=== PATIENT | female | born 1960 | race Two or more races ===

== ENCOUNTER 2017-01-31 09:57 | Emergency (ER) | payer MEDICARE, MEDICAID ==
[2017-01-31] MEDS ORDERED: ONDANSETRON 4 MG TAB.RAPDIS PO ONE (10:21)
--- NOTE | 2017-01-31 10:21 | ER Document Report ---
ED Medical Screen (RME) - General Chief Complaint: Vomiting Stated Complaint: VOMITING Mode of Arrival: Ambulatory Information source: Patient TRAVEL OUTSIDE OF THE [place] IN LAST 30 DAYS: No - HPI Onset: This morning - 2 AM Onset/Duration: Sudden Quality of pain: Other - HRONIC BACK PAIN, NOTHING UNUSUAL Severity: Moderate Associated Symptoms: Nausea, Vomiting. denies: Chest pain, Fever, Shortness of breath Exacerbated by: Food, Other - P.O. 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 No: Tachycardic, Tachypneic - General General appearance: Appears well - DOES APPEAR UNCOMFORTABLE In distress: None - Abdominal Distension: No distension Course - Vital Signs Vital signs: Temp Pulse Resp BP Pulse Ox 98.4 F 68 18 136/56 H 96 01/31/17 10:01 01/31/17 10:01 01/31/17 10:01 01/31/17 10:01 01/31/17 10:01
[2017-01-31] MEDS ORDERED: PROMETHAZINE HCL 25 MG TABLET PO ONE (10:51)
--- NOTE | 2017-01-31 11:24 | ER Document Report ---
ED General - General Chief Complaint: Vomiting Stated Complaint: VOMITING Mode of Arrival: Ambulatory TRAVEL OUTSIDE OF THE [place] IN LAST 30 DAYS: No - HPI Patient complains to provider of: nausea vomiting Notes: Patient is coming in for evaluation of nausea vomiting. Patient states she has a history of chronic back pain states she also has Phenergan that she normally takes whenever her symptoms of nausea vomiting occur however patient is from [place] and does not have any Phenergan with her. Denies fevers chills nausea vomiting diarrhea. Patient denies any recent antibiotics. - Related Data Allergies/Adverse Reactions: morphine Allergy (Verified 01/31/17 10:01) sumatriptan [From Imitrex] Allergy (Verified 01/31/17 10:01) sumatriptan succinate [From Imitrex] Allergy (Verified 01/31/17 10:01) Past Medical History - General Information source: Patient - Social History Smoking Status: Never Smoker Chew tobacco use (# tins/day): No Frequency of alcohol use: None Drug Abuse: None Family History: CAD, DM, Malignancy, Other - copd Patient has suicidal ideation: No Patient has homicidal ideation: No - Past Medical History Cardiac Medical History: 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 Neurological Medical History: Reports: Hx Migraine Renal/ Medical History: Denies: Hx Peritoneal Dialysis Past Surgical History: Reports: Hx Bowel Surgery - Lap lysis of adhesions, Hx Hysterectomy, Hx Orthopedic Surgery - back 2 - Immunizations Immunizations up to date: Yes Hx Diphtheria, Pertussis, Tetanus Vaccination: No Hx Pneumococcal Vaccination: 12/29/10 Review of Systems - Review of Systems Constitutional: No symptoms reported EENT: No symptoms reported Cardiovascular: No symptoms reported Respiratory: No symptoms reported Gastrointestinal: Nausea, Vomiting Genitourinary: No symptoms reported Female Genitourinary: No symptoms reported Musculoskeletal: No symptoms reported Skin: No symptoms reported Hematologic/Lymphatic: No symptoms reported Neurological/Psychological: No symptoms reported -: Yes All other systems reviewed and negative Physical Exam - Vital signs Vitals: Temp Pulse Resp BP Pulse Ox 98.4 F 68 18 136/56 H 96 01/31/17 10:01 01/31/17 10:01 01/31/17 10:01 01/31/17 10:01 01/31/17 10:01 Interpretation: Normal - General General appearance: Appears well, Alert - HEENT Head: Normocephalic, Atraumatic Eyes: Normal Pupils: PERRL - Respiratory Respiratory status: No respiratory distress Chest status: Nontender Breath sounds: Normal Chest palpation: Normal - Cardiovascular Rhythm: Regular Heart sounds: Normal auscultation Murmur: No - Abdominal Inspection: Normal Distension: No distension Bowel sounds: Normal Tenderness: Nontender Organomegaly: No organomegaly - Back Back: Normal, Nontender - Extremities General upper extremity: Normal inspection, Nontender, Normal color, Normal ROM , Normal temperature General lower extremity: Normal inspection, Nontender, Normal color, Normal ROM , Normal temperature, Normal weight bearing. No: Nate's sign - Neurological Neuro grossly intact: Yes Cognition: Normal Orientation: AAOx4 David Coma Scale Eye Opening: Spontaneous David Coma Scale Verbal: Oriented [place] Coma Scale Motor: Obeys Commands [place] Coma Scale Total: 15 Speech: Normal Motor strength normal: LUE, RUE, LLE, RLE Sensory: Normal - Psychological Associated symptoms: Normal affect, Normal mood - Skin Skin Temperature: Warm Skin Moisture: Dry Skin Color: Normal Course - Re-evaluation Re-evalutation: 01/31/17 14:48 Patient was able to tolerate by mouth. Patient was given a dose of Phenergan and a prescription for Phenergan for home. Patient was grateful for her care. - Vital Signs Vital signs: Temp Pulse Resp BP Pulse Ox 97.7 F 63 18 107/63 98 01/31/17 11:28 01/31/17 11:28 01/31/17 11:28 01/31/17 11:28 01/31/17 11:28 Discharge - Discharge Clinical Impression: Vomiting Qualifiers: Vomiting type: unspecified Vomiting Intractability: unspecified Nausea presence : unspecified Qualified Code(s): R11.10 - Vomiting, unspecified Condition: Good Disposition: HOME, SELF-CARE Instructions: Vomiting ([facility]) Additional Instructions: Take medication as prescribed. Please follow-up with your primary care physician Prescriptions: Ondansetron [Zofran Odt 4 mg Tablet] 4 mg PO Q4HP PRN #30 tab.rapdis PRN Reason: Promethazine HCl [Phenergan 25 mg Tablet] 1 - 2 tab PO Q6H PRN #30 tablet PRN Reason: Forms: Return to Work
[2017-01-31 11:29] VITALS: BP 107/63
== END 2017-01-31 11:30 | disposition home or self-care (01) ==
LOC: ER 09:57
DX: R11.2 Nausea with vomiting, unspecified (principal); G89.29 Other chronic pain
CPT/HCPCS: 99283; A9270 ×2; S0119

== ENCOUNTER 2017-05-11 09:21 | Emergency (ER) | payer MEDICARE, MEDICAID ==
[2017-05-11] MEDS ORDERED: OXYCODONE-ACETAMINOPHEN 5-325 MG TABLET PO ONE (09:35)
[2017-05-11] MEDS ORDERED: ONDANSETRON 4 MG TAB.RAPDIS PO ONE (09:35)
--- NOTE | 2017-05-11 10:01 | ER Document Report ---
HPI - HPI Patient complains to provider of: tooth pain Pain Level: 4 Context: 56 yo female fractured tooth #7 last pm. c/o of alot pain which is causing n/v/ d. no fever. pt is visiting area for in family. has contacted dentist at home as an appointment set Associated Symptoms: Diarrhea, Vomiting Exacerbated by: Food Relieved by: Denies Similar symptoms previously: No Recently seen / treated by doctor: No - ROS Systems Reviewed and Negative: Yes All other systems reviewed and negative - REPRODUCTIVE Reproductive: DENIES: : - DERM Skin Color: Normal Past Medical History - General Information source: Patient - Social History Smoking Status: Never Smoker Chew tobacco use (# tins/day): No Frequency of alcohol use: None Drug Abuse: None Lives with: Family Family History: CAD, DM, Malignancy, Other - copd Patient has suicidal ideation: No Patient has homicidal ideation: No - Past Medical History Cardiac Medical History: 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 Neurological Medical History: Reports: Hx Migraine Renal/ Medical History: Denies: Hx Peritoneal Dialysis Past Surgical History: Reports: Hx Bowel Surgery - Lap lysis of adhesions, Hx Hysterectomy, Hx Orthopedic Surgery - back 2 - Immunizations Immunizations up to date: Yes Hx Diphtheria, Pertussis, Tetanus Vaccination: No Hx Pneumococcal Vaccination: 12/29/10 Vertical Provider Document - CONSTITUTIONAL Agree With Documented VS: Yes Exam Limitations: No Limitations - INFECTION CONTROL TRAVEL OUTSIDE OF THE [place] IN LAST 30 DAYS: No - HEENT HEENT: Atraumatic, PERRLA Mouth Diagram: 1 - fractured tooth. no gingival edema or abscess appreciated - NECK Neck: Normal Inspection, Supple - RESPIRATORY Respiratory: Breath Sounds Normal, No Respiratory Distress O2 Sat by Pulse Oximetry: 97 - CARDIOVASCULAR Cardiovascular: Regular Rate, Regular Rhythm - NEURO Level of Consciousness: Awake, Alert, Appropriate - DERM Integumentary: Warm, Dry, No Rash Course - Vital Signs Vital signs: Temp Pulse Resp BP Pulse Ox 98.4 F 80 16 145/70 H 97 05/11/17 09:23 05/11/17 09:23 05/11/17 09:23 05/11/17 09:23 05/11/17 09:23 Discharge - Discharge Clinical Impression: Pain, dental Condition: Stable Disposition: HOME, SELF-CARE Instructions: Penicillin V K ([facility]), Toothache ([facility]) Additional Instructions: Take antibiotic as prescribed use tessalon perles for tooth pain, puncture capsule and apply liquid med to tooth take motrin for moderate pain recommend over the counter dental wax to cover and protect fractured tooth Prescriptions: Benzonatate [Tessalon Perles 100 mg Capsule] 100 mg PO Q8HP PRN #20 capsule PRN Reason: Ibuprofen [Motrin 800 Mg Tablet] 800 mg PO Q6H #20 tablet Penicillin V Potassium 500 mg PO BID #20 tablet
[2017-05-11 10:13] VITALS: BP 150/70
== END 2017-05-11 10:13 | disposition home or self-care (01) ==
LOC: ER 09:21
DX: K08.9 Disorder of teeth and supporting structures, unspecified (principal); R11.2 Nausea with vomiting, unspecified; R19.7 Diarrhea, unspecified; Z86.718 Personal history of other venous thrombosis and embolism; Z90.710 Acquired absence of both cervix and uterus
CPT/HCPCS: 99282; A9270 ×2; S0119

== ENCOUNTER 2017-05-28 17:11 | Emergency (ER) | payer MEDICARE, MEDICAID ==
--- NOTE | 2017-05-28 17:47 | ER Document Report ---
ED Medical Screen (RME) - General Chief Complaint: Leg Pain Stated Complaint: LEG PAIN,BACK PAIN Time Seen by Provider: 05/28/17 17:42 Notes: Patient reports bilateral leg pain and swelling. She states the right is greater than the left. No known injury. She states she has had blood clots in both lower extremities and had to take Coumadin for 6 months. She states she no longer takes Coumadin. She states that today when she was sitting on the toilet the pain was so great that she cannot stand up. She also states she has some low back pain but has a history of this secondary to a herniated disc and an operation to repair it. She has no numbness. She has no problems with urination or bowel movements. TRAVEL OUTSIDE OF THE [place] IN LAST 30 DAYS: No - Related Data Allergies/Adverse Reactions: morphine Allergy (Verified 05/28/17 17:26) sumatriptan [From Imitrex] Allergy (Verified 05/28/17 17:26) sumatriptan succinate [From Imitrex] Allergy (Verified 05/28/17 17:26) Past Medical History - Social History Chew tobacco use (# tins/day): No Frequency of alcohol use: None - Past Medical History Cardiac Medical History: 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 Neurological Medical History: Reports: Hx Migraine Renal/ Medical History: Denies: Hx Peritoneal Dialysis Past Surgical History: Reports: Hx Bowel Surgery - Lap lysis of adhesions, Hx Hysterectomy, Hx Orthopedic Surgery - back 2 - Immunizations Immunizations up to date: Yes Hx Diphtheria, Pertussis, Tetanus Vaccination: No Physical Exam - Vital signs Vitals: Temp Pulse BP Pulse Ox 98.6 F 70 161/71 H 95 05/28/17 17:28 05/28/17 17:28 05/28/17 17:28 05/28/17 17:28 Course - Vital Signs Vital signs: Temp Pulse Resp BP Pulse Ox 98.6 F 70 161/71 H 95 05/28/17 17:28 05/28/17 17:28 05/28/17 17:28 05/28/17 17:28
[2017-05-28 19:05] LABS: ABSOLUTE BASOPHILS # (AUTO) 0.1 10^3/uL (0.0-0.2); ABSOLUTE EOSINOPHILS # (AUTO) 0.3 10^3/uL (0.0-0.6); ABSOLUTE LYMPHOCYTES (AUTO) 3.3 10^3/uL (0.5-4.7); ABSOLUTE MONOCYTES (AUTO) 0.4 10^3/uL (0.1-1.4); ABSOLUTE NEUT (AUTO) 2.6 10^3/uL (1.7-8.2); BASOPHILS % (AUTO) 0.8 % (0-2); EOSINOPHILS % (AUTO) 5.2 % (0-6); HEMATOCRIT 42.2 % (36.0-47.0); HEMOGLOBIN 14.3 g/dL (12.0-15.5); HGB HCT DIFFERENCE 0.7; LYMPHOCYTES % (AUTO) 48.5 % (13-45); MEAN CORPUSCULAR HEMOGLOBIN 31.5 pg (27.0-33.4); MEAN CORPUSCULAR HGB CONC 33.8 g/dL (32.0-36.0); MEAN CORPUSCULAR VOLUME 93 fl (80-97); MONOCYTES % (AUTO) 6.2 % (3-13); RED BLOOD COUNT 4.54 10^6/uL (3.72-5.28); RED CELL DISTRIBUTION WIDTH 14.6 % (11.5-14.0); SEGMENTED NEUTROPHILS % (AUTO) 39.3 % (42-78); WHITE BLOOD COUNT 6.7 10^3/uL (4.0-10.5)
[2017-05-28 19:25] LABS: ALANINE AMINOTRANSFERASE 32 U/L (9-52); ALBUMIN 4.3 g/dL (3.5-5.0); ALKALINE PHOSPHATASE 107 U/L (38-126); ANION GAP 14 (5-19); ASPARTATE AMINO TRANSFERASE 32 U/L (14-36); BILIRUBIN,DIRECT 0.4 mg/dL (0.0-0.4); BILIRUBIN,TOTAL 0.5 mg/dL (0.2-1.3); BLOOD UREA NITROGEN 10 mg/dL (7-20); CALCIUM 9.7 mg/dL (8.4-10.2); CARBON DIOXIDE 26 mmol/L (22-30); CHLORIDE 104 mmol/L (98-107); CREATININE RESULT 0.79 mg/dL (0.52-1.25); GLUCOSE 100 mg/dL (75-110); SODIUM 143.5 mmol/L (137-145); TOTAL PROTEIN 7.6 g/dL (6.3-8.2)
[2017-05-28] MEDS ORDERED: OXYCODONE-ACETAMINOPHEN 5-325 MG TABLET PO ONE (19:36)
--- NOTE | 2017-05-28 19:38 | ER Document Report ---
ED Extremity Problem, Lower - General Chief Complaint: Leg Pain Stated Complaint: LEG PAIN,BACK PAIN Time Seen by Provider: 05/28/17 17:42 Mode of Arrival: Ambulatory Information source: Patient Notes: Patient presents complaining of bilateral lower extremity pain and swelling that started yesterday. Patient states she has had lower extremity pain and swelling off and on in the past and her doctor has previously attributed to her low back pain. Patient also reports she has a previous history of DVT a year and a half ago and is not currently on any anticoagulants. Patient denies any chest pain or dyspnea. Patient denies any fever. TRAVEL OUTSIDE OF THE [place] IN LAST 30 DAYS: No - HPI Patient complains to provider of: Pain, Swelling Location: Leg Occurred: Yesterday Onset/Duration: Gradual Pain Level: 5 Context: denies: Recent immobilization, Recent surgery, Recent travel Recent injury: No Associated symptoms: denies: Chest pain, Fever, Hurts to breath, Rapid heart rate, Short of breath Exacerbated by: Movement Relieved by: Nothing - Related Data Allergies/Adverse Reactions: morphine Allergy (Verified 05/28/17 17:26) sumatriptan [From Imitrex] Allergy (Verified 05/28/17 17:26) sumatriptan succinate [From Imitrex] Allergy (Verified 05/28/17 17:26) Past Medical History - General Information source: Patient - Social History Smoking Status: Never Smoker Chew tobacco use (# tins/day): No Frequency of alcohol use: None Drug Abuse: None Occupation: none Family History: CAD, DM, Malignancy, Other - copd Patient has suicidal ideation: No Patient has homicidal ideation: No - Past Medical History Cardiac Medical History: 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 Neurological Medical History: Reports: Hx Migraine Renal/ Medical History: Denies: Hx Peritoneal Dialysis Musculoskeltal Medical History: Reports Other - chronic back pain Past Surgical History: Reports: Hx Bowel Surgery - Lap lysis of adhesions, Hx Hysterectomy, Hx Orthopedic Surgery - back 2 - Immunizations Immunizations up to date: Yes Hx Diphtheria, Pertussis, Tetanus Vaccination: No Hx Pneumococcal Vaccination: 12/29/10 Review of Systems - Review of Systems Constitutional: No symptoms reported. denies: Fever, Recent illness EENT: No symptoms reported Cardiovascular: No symptoms reported. denies: Chest pain Respiratory: No symptoms reported. denies: Cough, Short of breath Gastrointestinal: No symptoms reported Genitourinary: No symptoms reported. denies: Dysuria, Flank pain Female Genitourinary: No symptoms reported Musculoskeletal: Back pain, Muscle pain - bilat LE, Leg swelling Skin: No symptoms reported Hematologic/Lymphatic: No symptoms reported Neurological/Psychological: No symptoms reported Physical Exam - Vital signs Vitals: Temp Pulse BP Pulse Ox 98.6 F 70 161/71 H 95 05/28/17 17:28 05/28/17 17:28 05/28/17 17:28 05/28/17 17:28 - General General appearance: Appears well, Alert In distress: None - HEENT Head: Normocephalic, Atraumatic Eyes: Normal Conjunctiva: Normal Nasal: Normal Mouth/Lips: Normal Mucous membranes: Normal Neck: Normal, Supple - Respiratory Respiratory status: No respiratory distress Chest status: Nontender Breath sounds: Normal. No: Rales, Rhonchi, Stridor, Wheezing Chest palpation: Normal - Cardiovascular Rhythm: Regular. No: Tachycardia Heart sounds: S1 appreciated, S2 appreciated Murmur: No - Back Back: Vertebra tenderness - Lower lumbar paraspinal tenderness, Scars - Lower lumbar. No: CVA tenderness - Extremities General upper extremity: Normal inspection, Normal ROM General lower extremity: Edema - 2+ bilateral lower extremity edema from knees distally, Normal ROM, Normal strength, Normal temperature, Normal weight bearing - Neurological Neuro grossly intact: Yes Cognition: Normal [place] Coma Scale Eye Opening: Spontaneous [place] Coma Scale Verbal: Oriented David Coma Scale Motor: Obeys Commands [place] Coma Scale Total: 15 Notes: No saddle anesthesia, no footdrop, normal gait, 2+ Achilles and patellar reflexes bilaterally - Psychological Associated symptoms: Normal affect, Normal mood - Skin Skin Temperature: Warm Skin Moisture: Dry Skin Color: Normal Course - Re-evaluation Re-evalutation: 05/28/17 20:41 Patient states that she does not want to stay to wait for the Doppler study to be performed. The patient has decided not to proceed with further recommended testing or treatment to determine the cause of her symptoms. The risk and alternatives to the recommendation were discussed the patient voiced understanding. The patient appears clinically to have the capacity to make this decision. The patient was instructed that they could return to the ER at any time to complete the testing or treatment. The patient has chosen to leave the facility against medical advice. The relevant issues have been reviewed and discussed with the patient and family at the bedside. At the time of this assessment there is no indication for involuntary commitment. The patient is alert, oriented, and able to express clearly their reasoning for not wanting to remain in the emergency department for further treatment. The patient is not clinically psychotic or intoxicated. - Vital Signs Vital signs: Temp Pulse Resp BP Pulse Ox 97.9 F 63 18 146/71 H 95 05/28/17 20:40 05/28/17 20:40 05/28/17 20:40 05/28/17 20:40 05/28/17 20:40 - Laboratory Result Diagrams: 05/28/17 18:56 05/28/17 18:56 Laboratory results interpreted by me: 05/28/17 18:56 RDW 14.6 H Seg Neutrophils % 39.3 L Lymphocytes % 48.5 H 05/28/17 20:42 Labs- Entire Visit 05/28/17 05/28/17 05/28/17 18:56 18:56 18:56 WBC 6.7 RBC 4.54 Hgb 14.3 Hct 42.2 MCV 93 MCH 31.5 MCHC 33.8 RDW 14.6 H Plt Count 247 Seg Neutrophils % 39.3 L Lymphocytes % 48.5 H Monocytes % 6.2 Eosinophils % 5.2 Basophils % 0.8 Absolute Neutrophils 2.6 Absolute Lymphocytes 3.3 Absolute Monocytes 0.4 Absolute Eosinophils 0.3 Absolute Basophils 0.1 Sodium 143.5 Potassium 4.0 Chloride 104 Carbon Dioxide 26 Anion Gap 14 BUN 10 Creatinine 0.79 Est GFR ( Amer) > 60 Est GFR (Non-Af Amer) > 60 Glucose 100 Calcium 9.7 Total Bilirubin 0.5 Direct Bilirubin 0.4 Indirect Bilirubin Not Reportable Neonat Total Bilirubin Not Reportable AST 32 ALT 32 Alkaline Phosphatase 107 NT-Pro-B Natriuret Pep 252 Total Protein 7.6 Albumin 4.3 Discharge - Discharge Clinical Impression: Elevated blood pressure reading, Lower extremity edema Chronic low back pain Qualifiers: Back pain laterality: unspecified Sciatica presence: with sciatica Sciatica laterality: bilateral sciatica Qualified Code(s): M54.41 - Lumbago with sciatica , right side Disposition: AGAINST MEDICAL ADVICE Additional Instructions: Return immediately for any new or worsening symptoms, or if you would like to continue your evaluation Followup with your primary care provider, call tomorrow to make a followup appointment Forms: Elevated Blood Pressure
[2017-05-28 20:42] VITALS: BP 146/71
== END 2017-05-28 20:43 | disposition left against medical advice (07) ==
LOC: ER 17:11
DX: M54.41 Lumbago with sciatica, right side (principal); M54.42 Lumbago with sciatica, left side; R60.0 Localized edema; R03.0 Elevated blood-pressure reading, without diagnosis of hypertension; Z86.718 Personal history of other venous thrombosis and embolism; Z88.5 Allergy status to narcotic agent; Z88.6 Allergy status to analgesic agent; Z53.29 Procedure and treatment not carried out because of patient's decision for other reasons
CPT/HCPCS: 99283; 36415; 85025; 80053; 83880; A9270

== ENCOUNTER 2017-06-13 17:09 | Emergency (ER) | payer MEDICARE, MEDICAID ==
[2017-06-13] MEDS ORDERED: CYCLOBENZAPRINE HCL 10 MG TABLET PO ONE (17:39)
[2017-06-13] MEDS ORDERED: METHYLPREDNISOLONE INJ 125 MG/2 ML SDV IV ONE (17:39)
[2017-06-13] MEDS ORDERED: ONDANSETRON HCL INJ/PF 4 MG/2 ML SDV IV ONE (17:40)
[2017-06-13] MEDS ORDERED: HYDROMORPHONE HCL INJ/PF 2 MG/ML AMPULE IV ONE ×3 (17:40→19:42)
--- NOTE | 2017-06-13 17:40 | ER Document Report ---
ED Neck/Back Problem - General Stated Complaint: BACK PAIN Time Seen by Provider: 06/13/17 17:17 Notes: Patient is a 57-year-old female who presents emergency department complaining of low back pain. Patient states that she has a history of low back pain and herniated disc that required surgery 3 years ago. Patient states that she still has chronic back pain that is approximately a 2 out of 5 in severity and she takes gabapentin Percocet for. Patient states that she is in the area to visit family and over the past couple of days she has been helping her parents in the house doing a little more heavy lifting than normal. Patient states that she went over to bend over today and felt a pop in her back and severe back pain. She denies any urinary/incontinence, saddle anesthesia. She states she has been able to walk but it is painful. Otherwise she denies any weakness , numbness in her legs. 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 TRAVEL OUTSIDE OF THE [place] IN LAST 30 DAYS: No - Related Data Allergies/Adverse Reactions: morphine Allergy (Verified 05/28/17 17:26) sumatriptan [From Imitrex] Allergy (Verified 05/28/17 17:26) sumatriptan succinate [From Imitrex] Allergy (Verified 05/28/17 17:26) Past Medical History - Social History Smoking Status: Never Smoker Family History: CAD, DM, Malignancy, Other - copd - Past Medical History Cardiac Medical History: 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 Neurological Medical History: Reports: Hx Migraine Renal/ Medical History: Denies: Hx Peritoneal Dialysis Past Surgical History: Reports: Hx Bowel Surgery - Lap lysis of adhesions, Hx Hysterectomy, Hx Orthopedic Surgery - back 2 - Immunizations Immunizations up to date: Yes Hx Diphtheria, Pertussis, Tetanus Vaccination: No Hx Pneumococcal Vaccination: 12/29/10 Review of Systems - Review of Systems Constitutional: No symptoms reported Cardiovascular: No symptoms reported Respiratory: No symptoms reported Gastrointestinal: No symptoms reported Musculoskeletal: See HPI Neurological/Psychological: See HPI -: Yes All other systems reviewed and negative Physical Exam - Vital signs Vitals: Temp Pulse Resp BP Pulse Ox 97.4 F 94 16 147/60 H 100 06/13/17 17:42 06/13/17 17:42 06/13/17 17:42 06/13/17 17:42 06/13/17 17:42 - Notes Notes: PHYSICAL EXAM GENERAL: Alert, interacts well. LUNGS: Clear to auscultation bilaterally, no wheezes, rales, or rhonchi. No respiratory distress. HEART: Regular rate and rhythm. No murmurs, gallops, or rubs. ABDOMEN: Soft, nondistended, nontender. No guarding, rebound, or rigidity.. Bowel sounds present in all 4 quadrants. EXTREMITIES: Moves all 4 extremities spontaneously. No edema, radial and dorsalis pedis pulses 2/4 bilaterally. No cyanosis. Back: Bilateral paralumbar muscular tenderness with pain reproducible to palpation. No spinous process tenderness. Straight leg raise normal. Patient able to ambulate to the bathroom with minimal assistance. Sensation and range of motion, strength all normal. NEUROLOGICAL: Alert and oriented x4. Normal speech. PSYCH: Normal affect, normal mood. SKIN: Warm, dry, normal turgor. No rashes or lesions noted. Course - Re-evaluation Re-evalutation: 06/13/17 18:57 Patient is a 57-year-old female who is hemodynamic with stable, mild distress secondary to pain and afebrile. The patient presents with low back pain without signs of spinal cord compression, cauda equina syndrome, infection, aneurysm, or other serious etiology. The patient is neurologically intact. Given the extremely low risk of these diagnoses further testing and evaluation for these possibilities does not appear to be indicated at this time. We will manage her pain in the department and reassess. 06/13/17 19:43 Patient is feeling better after medication at this time she is stating that she wants to follow-up with Dr. Unger to discuss, possible steroid injections in her back which she has benefited from in the past. Patient would like to be discharged so she can go home to sleep. Patient agrees with plan presents and symptoms indicating return to the emergency department. - Vital Signs Vital signs: Temp Pulse Resp BP Pulse Ox 97.4 F 94 16 147/60 H 100 06/13/17 17:42 06/13/17 17:42 06/13/17 17:42 06/13/17 17:42 06/13/17 17:42 - Diagnostic Test Radiology reviewed: Image reviewed, Reports reviewed Discharge - Discharge Clinical Impression: Back pain Qualifiers: Back pain location: low back pain Chronicity: chronic Back pain laterality: bilateral Sciatica presence: without sciatica Qualified Code(s): M54.5 - Low back pain Condition: Good Disposition: HOME, SELF-CARE Additional Instructions: LOW BACK PAIN: Three out of every four people will have an episode of disabling back pain during their lifetime. Most commonly the pain is due to straining of the muscles and ligaments in the low back. Usual treatment includes: (1) Rest on a firm surface. Avoid lying on your stomach. (2) Ice pack the painful area. After a few days, gentle heat may be used intermittently to relax the area, or ice packs can be continued. (3) Medication may be needed -- muscle relaxers and antiinflammatory medicines are commonly used. (4) As the back improves, exercises are prescribed to strengthen the back and abdominal muscles. Your doctor will advise you on the proper care for your back at each stage in your recovery. You may be better in a few days -- or healing may take several weeks. If new symptoms of a "herniated disc" (radiation of pain, numbness, or tingling down the back of the leg or weakness in the leg) occur, you should be re-examined. Further testing may be necessary. PAIN MEDICATION INJECTION: You have received an injection of a pain medication. You should experience significant pain relief within 45 minutes. If this injection was a narcotic -- it will impair your judgement, slow your reaction time and make you sleepy (as well as relieve your pain). Narcotics also can cause nausea. You should not drive, work with machinery, or perform any task requiring mental alertness until all effects of the medication are gone -- six to eight hours. Do not take any alcohol, or sedatives, and do not take any other medication without checking with your physician. ORAL NARCOTIC MEDICATION: You have been given a prescription for pain control. This medication is a narcotic. It's best taken with food, as nausea can result if taken on an empty stomach. Don't operate machinery or drive within six hours of taking this medication. Do not combine this medicine with alcohol, or with any medication which can cause sedation (such as cold tablets or sleeping pills) unless you get permission from the physician. Narcotics tend to cause constipation. If possible, drink plenty of fluids and eat a diet high in fiber and fruits. Please be aware that prescription narcotics also have the potential for abuse. People become addicted to these medications because of the general sense of wellbeing that they induce. This feeling along with a significant reduction in tension, anxiety, and aggression provides a stimulating seductive quality to these drugs. Once your pain is under control, we encourage you to discard your unused narcotics. MUSCLE RELAXERS: Muscle relaxing medications are usually prescribed for acute muscle spasm or injury to the neck and back. They are often combined with antiinflammatory pain medication for increased relief. You may stop the muscle relaxer when the pain and stiffness have improved. Start the medication again if spasms recur. Muscle relaxers may cause drowsiness, especially with the first dose. Do not operate machinery or drive while under the effects of the medication. Most muscle relaxers last up to 24 hours. Do not combine the medication with alcohol. ICE PACKS: Apply ice packs frequently against the painful area. Many different schedules are recommended, such as "20 minutes on, 20 minutes off" or "one hour ice, two hours rest." If you need to work, you may need to go longer between ice treatments. You should plan to have the area ice packed AT LEAST one fourth of the time. The ice should be applied over the wrap, tape, or splint, or over a layer of cloth -- not directly against the skin. Some ice bags have a built-in cloth and can be put directly on the skin. WARM PACKS: After approximately two days, apply gentle heat (such as a heating pad or hot water bottle) for about 20 to 30 minutes about every two hours -- at least four times daily. Warmth and elevation will help you make a more rapid recovery , and will ease the pain considerably. Do not use HOT heat, and never apply heat for longer than 30 minutes. The continuous heat can invisibly damage skin and muscles -- even when no burn is seen on the surface. Damaged muscles can make you MORE sore. FOLLOW-UP CARE: If you have been referred to a physician for follow-up care, call the physician s office for an appointment as you were instructed or within the next two days. If you experience worsening or a significant change in your symptoms, notify the physician immediately or return to the Emergency Department at any time for re-evaluation. Prescriptions: Cyclobenzaprine HCl [Flexeril 10 mg Tablet] 10 mg PO TIDP PRN #15 tab PRN Reason: Promethazine HCl [Phenergan 25 mg Tablet] 1 - 2 tab PO Q6H PRN #15 tablet PRN Reason: Referrals: ISELA TAM MD [Primary Care Provider] - Follow up as needed
[2017-06-13] MEDS ORDERED: DIPHENHYDRAMINE HCL 50 MG/ML VIAL IV ONE (18:34)
[2017-06-13] MEDS ORDERED: METOCLOPRAMIDE HCL INJ/PF 10 MG/2 ML SDV IV ONE (18:34)
[2017-06-13 19:47] VITALS: BP 134/63
== END 2017-06-13 20:10 | disposition home or self-care (01) ==
LOC: ER 17:09
DX: G89.29 Other chronic pain (principal); M54.5 Low back pain; Z88.6 Allergy status to analgesic agent; Z86.718 Personal history of other venous thrombosis and embolism; Z90.710 Acquired absence of both cervix and uterus
CPT/HCPCS: 96376; 99283; 96374; 96375; A9270; J1200; J2930; J2765; J1170; J2405

== ENCOUNTER 2017-07-04 17:01 | Emergency (ER) | payer MEDICARE, MEDICAID ==
[2017-07-04] MEDS ORDERED: NORMAL SALINE 1000 ML 1,000 ML IV ONE (18:47)
[2017-07-04] MEDS ORDERED: ONDANSETRON HCL INJ/PF 4 MG/2 ML SDV IV ONE (18:47)
--- NOTE | 2017-07-04 18:55 | ER Document Report ---
ED General - General Chief Complaint: Vomiting Stated Complaint: VOMITING Time Seen by Provider: 07/04/17 18:31 Mode of Arrival: Ambulatory Information source: Patient Notes: Patient is a 57-year-old morbidly obese female comes to emergency room with multiple complaints. Patient states she has a history of blood clots in the recent past stopped blood thinners approximately 6-8 months ago. She also notes that she is from [place] and is returning to [place] in 2 weeks. Patient states she is here today because she has had uncontrolled vomiting secondary to the back pain she is feeling. She also has a heavy tightness in her chest. She also complains of mild shortness of breath. Patient is seen Dr. Unger since her last visit here. Patient denies any history of cardiac events no history of congestive heart failure no history of MIs. She has a history most readings as stated PEs and blood clots. Patient states she also has a strong history of severe back problems where she had a disc herniation with surgery approximately a year ago. She is to return to [place] next week. TRAVEL OUTSIDE OF THE [place] IN LAST 30 DAYS: No - HPI Patient complains to provider of: As above. Onset: Yesterday Onset/Duration: Gradual, Waxing and waning, Worse Quality of pain: No pain, Achy, Burning, Sharp Pain Level: 5 Associated symptoms: Chest pain, Leg swelling, Nausea, Vomiting, Weakness Exacerbated by: Movement, Deep breathing Relieved by: Other - Nothing Similar symptoms previously: Yes Recently seen / treated by doctor: Yes Notes: Patient informed me she is currently taking Percocet 5 mg every 6 hours as needed for pain. She is not seeing pain management. - Related Data Allergies/Adverse Reactions: morphine Allergy (Verified 05/28/17 17:26) sumatriptan [From Imitrex] Allergy (Verified 05/28/17 17:26) sumatriptan succinate [From Imitrex] Allergy (Verified 05/28/17 17:26) Past Medical History - Social History Smoking Status: Never Smoker Frequency of alcohol use: None Drug Abuse: None Lives with: Family Family History: None, CAD, DM, Malignancy, Other - copd Patient has suicidal ideation: No Patient has homicidal ideation: No - Past Medical History Cardiac Medical History: 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, Hx Pulmonary Embolism Denies: Hx Atrial Fibrillation, Hx Congestive Heart Failure, Hx Coronary Artery Disease, Hx Heart Attack, Hx Hypercholesterolemia, Hx Hypertension, Hx Peripheral Vascular Disease, Hx Heart Murmur Pulmonary Medical History: Reports: Other - pulmonary embolism EENT Medical History: Reports: None Neurological Medical History: Reports: None, Hx Migraine Endocrine Medical History: Reports: None Renal/ Medical History: Reports: None. Denies: Hx Peritoneal Dialysis Malignancy Medical History: Reports: None GI Medical History: Reports: None Musculoskeltal Medical History: Reports Hx Muscle Spasm Skin Medical History: Reports None Psychiatric Medical History: Reports: None Traumatic Medical History: Reports: None Infectious Medical History: Reports: None Past Surgical History: Reports: Hx Bowel Surgery - Lap lysis of adhesions, Hx Hysterectomy, Hx Orthopedic Surgery - back 2 - Immunizations Immunizations up to date: Yes Hx Diphtheria, Pertussis, Tetanus Vaccination: No Hx Pneumococcal Vaccination: 12/29/10 Review of Systems - Review of Systems Constitutional: No symptoms reported EENT: No symptoms reported Cardiovascular: No symptoms reported Respiratory: See HPI, Cough, Short of breath, Other Gastrointestinal: Nausea, Vomiting. denies: Abdomen distended, Abdominal pain, Poor appetite, Poor fluid intake, Blood in vomit, Black stools, Last bowel movement, Fecal incontinence Genitourinary: No symptoms reported, Burning Female Genitourinary: No symptoms reported Musculoskeletal: Back pain, Leg swelling, Ankle swelling Skin: No symptoms reported Neurological/Psychological: No symptoms reported -: Yes All other systems reviewed and negative Physical Exam - Vital signs Vitals: Temp Pulse Resp BP Pulse Ox 98.3 F 84 20 143/61 H 95 07/04/17 17:38 07/04/17 17:38 07/04/17 17:38 07/04/17 17:38 07/04/17 17:38 - Notes Notes: The stated patient is a 57-year-old morbidly obese female who comes in with a multitude of somatic type complaints. Patient states her primary reason for being here is that she is having vomiting 7 which is just dry heaving currently. She states this is secondary to her pain in her back. She also has complaint of shortness of breath moderate amount of anterior chest discomfort which she says is new. Patient also states she has had low back pain with radiation slightly down her right side which is an acute exacerbation of a chronic condition. - General General appearance: Anxious In distress: None - HEENT Sinus: Normal. No: Swelling Nasal: Normal. No: Purulent discharge Mouth/Lips: Normal. No: Angioedema Mucous membranes: Moist Pharynx: Normal. No: Blood in hypopharynx, Erythema, Exudate, Uvular edema Neck: Normal - Respiratory Chest status: No: Nontender, Tender, Chest mass Breath sounds: Decreased air movement, Nonproductive cough. No: Rales, Rhonchi , Wheezing Chest palpation: Normal - Cardiovascular Rhythm: Regular Heart sounds: Normal auscultation Murmur: No - Abdominal Inspection: Normal Distension: No distension Bowel sounds: Normal Tenderness: Nontender Organomegaly: No organomegaly - Back Back: Tender, Scars - Extremities General lower extremity: Tender, Edema, Normal color, Normal strength, Normal weight bearing, Other - Patient vascular examination shows pretty much to be normal. She has 2+ pedal pulses bilaterally she also has good popliteal pulses bilaterally she has good flexion-extension of the ankles. She has good 2+ dorsalis pedal pulses. Patient also has good straight leg raises bilaterally and good DTRs in the lower extremities. Calf: Normal, Nontender. No: Unable to bear weight Ankle: Nontender, Edema. 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 Given the fact that she had a history of blood clots and she had a slight saturation of 95% probably secondary to her obesity I still felt necessary to attempt at least a d-dimer. Patient's breathing never increased her get worse during her stay here. As medevac she states this is her baseline. Again with all labs being 100% normal d-dimer being negative I do not see any necessity to go tracing or chasing a DVT PE profile. Patient has a negative Homans as well and good vascular flow that there is no discoloration. She does have some edema in the lower extremities most likely gravity dependent bilaterally and we have already discussed with her the options of support stockings. Patient is due to go back to [place] next week about where she has a neuro surgeon there who is done her discectomy in the past. Discharge - Discharge Clinical Impression: Dependent edema, Acute exacerbation of chronic low back pain Condition: Stable Disposition: HOME, SELF-CARE Additional Instructions: Chronic Back Pain Chronic back pain (pain persisting longer than three months) is a common problem. A medical evaluation can look for herniated disc, arthritis, osteoporosis, tumors, and infections. But at least half the time, there's no obvious treatable cause. Anxiety and depression tend to worsen back pain. Ibuprofen or other anti-inflammatory medicine can help. A heating pad, used for 15-20 minutes at a time, can ease pain. For this type of back pain, narcotic medicines should be avoided. Muscle relaxers are rarely helpful unless you're having spasms. Activity is important. Find an aerobic exercise program that your back can tolerate. Too much rest makes back pain worse. Specific back exercises are usually prescribed to strengthen the back and abdominal muscles. Often, a physical therapist can help. Avoid heavy lifting, working while bent over, or standing with both knees straight. Most back pain patients do better with a firm mattress. If new symptoms of a "herniated disc" (radiation of pain, numbness, or tingling down the back of the leg or weakness in the leg) occur, you should be re-examined.Edema, Peripheral You have swelling in your legs. This is called peripheral edema. It can be caused by "leaky capillaries," inflammation, disease of the leg veins, or excess salt and water in your body. Edema may be a sign of heart, kidney, or liver disease. A medical evaluation can determine if there is a serious underlying cause for your edema. Avoid prolonged standing. If you must sit for a long time, occasionally get up and walk around or elevate your legs. Support stockings can be helpful in limiting swelling. Often diuretic or water pills are used to remove excess salt and water from your body. Call the doctor or return if you develop increased swelling, pain, or redness, shortness of breath, chest pain, or any other significant change. As we discussed highly important that you follow-up with your neurosurgeon in [place] when you return. At this point the most this is inflammatory as well as dependent edema. We will try her on a course of steroids as well as on little muscle relaxer for the lower back spasms. You have any concerns or problems should you have increasing pain and discomfort loss of urine or stool or any concerns return to ER for a recheck. Prescriptions: Cyclobenzaprine HCl [Flexeril 10 mg Tablet] 10 mg PO TIDP PRN #20 tablet PRN Reason: Prednisone [Sterapred Ds] 10 mg PO DAILY #1 tab.ds.pk Forms: Elevated Blood Pressure
[2017-07-04 19:49] LABS: ABSOLUTE BASOPHILS # (AUTO) 0.1 10^3/uL (0.0-0.2); ABSOLUTE EOSINOPHILS # (AUTO) 0.3 10^3/uL (0.0-0.6); ABSOLUTE LYMPHOCYTES (AUTO) 2.7 10^3/uL (0.5-4.7); ABSOLUTE MONOCYTES (AUTO) 0.6 10^3/uL (0.1-1.4); ABSOLUTE NEUT (AUTO) 4.6 10^3/uL (1.7-8.2); EOSINOPHILS % (AUTO) 3.6 % (0-6); HEMATOCRIT 43.1 % (36.0-47.0); HEMOGLOBIN 14.3 g/dL (12.0-15.5); HGB HCT DIFFERENCE -0.2; LYMPHOCYTES % (AUTO) 32.5 % (13-45); MEAN CORPUSCULAR HEMOGLOBIN 30.9 pg (27.0-33.4); MEAN CORPUSCULAR HGB CONC 33.2 g/dL (32.0-36.0); MEAN CORPUSCULAR VOLUME 93 fl (80-97); RED BLOOD COUNT 4.62 10^6/uL (3.72-5.28); RED CELL DISTRIBUTION WIDTH 14.7 % (11.5-14.0); SEGMENTED NEUTROPHILS % (AUTO) 55.9 % (42-78); WHITE BLOOD COUNT 8.3 10^3/uL (4.0-10.5)
[2017-07-04] MEDS ORDERED: HYDROMORPHONE HCL INJ/PF 2 MG/ML AMPULE IV ONE ×2 (20:01→20:48)
[2017-07-04] MEDS ORDERED: PROMETHAZINE HCL INJ 25 MG/1 ML VIAL IV ONE (21:20)
[2017-07-04 21:40] LABS: APPEARANCE,URINE CLEAR; BILIRUBIN,URINE NEGATIVE (NEGATIVE); GLUCOSE, URINE NEGATIVE (NEGATIVE); KETONES,URINE NEGATIVE (NEGATIVE); LEUKOCYTE ESTERASE,URINE NEGATIVE (NEGATIVE); NITRITE,URINE NEGATIVE (NEGATIVE); PROTEIN,URINE NEGATIVE (NEGATIVE); URINE SPECIFIC GRAVITY 1.003; UROBILINOGEN,URINE NEGATIVE mg/dL (<2.0)
[2017-07-04] MEDS ORDERED: PROMETHAZINE HCL INJ 25 MG/1 ML VIAL IM ONE (21:40)
[2017-07-04 21:58] LABS: URINE BARBITURATES SCREEN NEGATIVE; URINE METHADONE SCREEN NEGATIVE; URINE OPIATES LOW UNCONFIRMED POSITIVE; URINE PHENCYCLIDINE SCREEN NEGATIVE
[2017-07-04 22:23] LABS: ALANINE AMINOTRANSFERASE 29 U/L (9-52); ALBUMIN 3.8 g/dL (3.5-5.0); ALKALINE PHOSPHATASE 101 U/L (38-126); ANION GAP 8 (5-19); ASPARTATE AMINO TRANSFERASE 29 U/L (14-36); BILIRUBIN,DIRECT 0.4 mg/dL (0.0-0.4); BILIRUBIN,TOTAL 0.4 mg/dL (0.2-1.3); BLOOD UREA NITROGEN 12 mg/dL (7-20); CALCIUM 9.1 mg/dL (8.4-10.2); CARBON DIOXIDE 25 mmol/L (22-30); CHLORIDE 109 mmol/L (98-107); CREATININE RESULT 0.71 mg/dL (0.52-1.25); GLUCOSE 115 mg/dL (75-110); LIPASE 86.9 U/L (23-300); POTASSIUM 4.3 mmol/L (3.6-5.0); SODIUM 142.1 mmol/L (137-145); TOTAL PROTEIN 6.8 g/dL (6.3-8.2)
[2017-07-04 22:39] LABS: TROPONIN I < 0.012 ng/mL
[2017-07-04] MEDS ORDERED: KETOROLAC TROMETHAMINE INJ/PF 30 MG/1 ML SDV IV ONE (23:30)
[2017-07-04 23:53] VITALS: BP 121/79
--- NOTE | 2017-07-05 11:13 | EKG REPORT ---
SEVERITY:- NORMAL ECG - SINUS RHYTHM : Confirmed by: Asiya Latham MD 05-Jul-2017 11:12:41
== END 2017-07-04 23:50 | disposition home or self-care (01) ==
LOC: ER 17:01
DX: R60.9 Edema, unspecified (principal); G89.29 Other chronic pain; M54.5 Low back pain; R05 Cough; R06.02 Shortness of breath; R11.2 Nausea with vomiting, unspecified; E66.01 Morbid (severe) obesity due to excess calories; Z88.6 Allergy status to analgesic agent; Z86.718 Personal history of other venous thrombosis and embolism; Z86.711 Personal history of pulmonary embolism; Z90.710 Acquired absence of both cervix and uterus
CPT/HCPCS: 93005; 96376; 99284; 96372; 96361; 96374; 96375; 36415; 83690; 85025; 80053; 81001; 84484; 80307; 85379; 83880; 93010; J1885; J1170; J2550; J2405; J7030

== ENCOUNTER → 2018-02-10 | Outpatient (CLI) | payer MEDICARE ==
--- NOTE | 2018-02-10 15:58 | RADIOLOGY REPORT (SQ) ---
EXAM DESCRIPTION: CT ABD/PELVIS WITH IV ORAL COMPLETED DATE/TIME: 02/10/2018 3:39 pm REASON FOR STUDY: GENERALIZED ABDOMINAL PAIN R10.84 GENERALIZED ABDOMINAL PAIN COMPARISON: None. TECHNIQUE: CT scan of the abdomen and pelvis performed using helical scanning technique with dynamic intravenous contrast injection. Patient drank oral contrast. Images reviewed with lung, soft tissue , and bone windows. Reconstructed coronal and sagittal MPR images reviewed. Delayed images for evalua tion of the urinary system also acquired. All images stored on PACS. All CT scanners at this facility use dose modulation, iterative reconstruction, and/or weight based d osing when appropriate to reduce radiation dose to as low as reasonably achievable (ALARA). [facility]: Dose Right [facility]: CareDose [facility]: Dose Right [facility]: Teradose 4D [facility]: COPsync CONTRAST TYPE AND DOSE: 74 mL IV Isovue 370- low osmolar. RENAL FUNCTION: Creatinine 0.6 RADIATION DOSE: 22.6 mGy. LIMITATIONS: None. FINDINGS: LOWER CHEST: No significant findings. No nodules or infiltrates. LIVER: Normal size. No masses. No dilated ducts. Diffuse low attenuation throughout the liver from fatty infiltration. SPLEEN: Normal size. No focal lesions. PANCREAS: No masses. No significant calcifications. No adjacent inflammation or peripancreatic fluid collections. Pancreatic duct not dilated. GALLBLADDER: Surgically absent ADRENAL GLANDS: No significant masses or asymmetry. RIGHT KIDNEY AND URETER: No solid masses. No significant calcifications. No hydronephrosis or hyd roureter. LEFT KIDNEY AND URETER: No solid masses. No significant calcifications. No hydronephrosis or hydr oureter. AORTA AND VESSELS: No aneurysm. No dissection. Renal arteries, SMA, celiac without stenosis. RETROPERITONEUM: No retroperitoneal adenopathy, hemorrhage or masses. BOWEL AND PERITONEAL CAVITY: No masses or inflammatory changes. No free fluid or peritoneal masses. APPENDIX: Surgically absent PELVIS: No mass. No free fluid. Normal bladder. Post hysterectomy. ABDOMINAL WALL: No masses. No hernias. BONES: No significant or acute findings. OTHER: No other significant finding. IMPRESSION: NO SIGNIFICANT OR ACUTE FINDING IN THE ABDOMEN OR PELVIS ON CT SCAN WITH IV CONTRAST. TECHNICAL DOCUMENTATION: JOB ID: [id number] Quality ID # [id number]: Final reports with documentation of one or more dose reduction techniques (e.g., Au tomated exposure control, adjustment of the mA and/or kV according to patient size, use of iterative reconstruction technique) 2010 [employer]- All Rights Reserved Reading location - IP/workstation name: [email or web address]
== END ==
LOC: RAD 12:08
PROVIDERS: ATTEND Internal Medicine
DX: R10.84 Generalized abdominal pain (principal)
CPT/HCPCS: 74177; 82565

== ENCOUNTER 2018-04-19 20:52 | Emergency (ER) | payer MEDICARE ==
[2018-04-19] MEDS ORDERED: PROMETHAZINE HCL INJ 25 MG/1 ML VIAL IM ONE (23:02)
[2018-04-19] MEDS ORDERED: KETOROLAC TROMETHAMINE INJ/PF 30 MG/1 ML SDV IM ONE (23:02)
[2018-04-19] MEDS ORDERED: HYDROMORPHONE HCL INJ/PF 2 MG/ML AMPULE IM ONE (23:02)
--- NOTE | 2018-04-19 23:13 | ER Document Report ---
ED General - General Chief Complaint: Vomiting Stated Complaint: BACK PAIN Time Seen by Provider: 04/19/18 22:51 Notes: The patient is a 57-year-old female, past medical history chronic back pain with multiple lumbar surgeries in [place], prior left lower extremity DVT (no longer on anticoagulation), presents with exacerbation of her low back pain today and dry heaving, which often occurs when she has severe back pain. She tried her oral Phenergan, but vomited it up. She has a bug bite on the top of her left foot and was started on antibiotics by her primary care physician, Dr. Tam. She denies any increased left lower extremity swelling, change in bowel or bladder, abdominal pain, chest pain, shortness of breath, rash, difficulty walking, saddle anesthesia, fevers or diarrhea. TRAVEL OUTSIDE OF THE U.S. IN LAST 30 DAYS: No - Related Data Allergies/Adverse Reactions: morphine Allergy (Verified 05/28/17 17:26) sumatriptan [From Imitrex] Allergy (Verified 05/28/17 17:26) sumatriptan succinate [From Imitrex] Allergy (Verified 05/28/17 17:26) Past Medical History - General Information source: Patient - Social History Smoking Status: Unknown if Ever Smoked Family History: None, CAD, DM, Malignancy, Other - copd - Past Medical History Cardiac Medical History: 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, Hx Pulmonary Embolism Denies: Hx Atrial Fibrillation, Hx Congestive Heart Failure, Hx Coronary Artery Disease, Hx Heart Attack, Hx Hypercholesterolemia, Hx Hypertension, Hx Peripheral Vascular Disease, Hx Heart Murmur Neurological Medical History: Reports: Hx Migraine Renal/ Medical History: Denies: Hx Peritoneal Dialysis Musculoskeletal Medical History: Reports Hx Muscle Spasm Past Surgical History: Reports: Hx Bowel Surgery - Lap lysis of adhesions, Hx Hysterectomy, Hx Orthopedic Surgery - back 2 - Immunizations Immunizations up to date: Yes Hx Diphtheria, Pertussis, Tetanus Vaccination: No Hx Pneumococcal Vaccination: 12/29/10 Review of Systems - Review of Systems Notes: REVIEW OF SYSTEMS: CONSTITUTIONAL: -fevers, -chills EENT: -eye pain, -difficulty swallowing, -nasal congestion CARDIOVASCULAR: -chest pain, -syncope. RESPIRATORY: -cough, -SOB GASTROINTESTINAL: -abdominal pain, +nausea, +vomiting, -diarrhea GENITOURINARY: -dysuria, -hematuria MUSCULOSKELETAL: +back pain, -neck pain SKIN: -rash or skin lesions. HEMATOLOGIC: -easy bruising or bleeding. LYMPHATIC: -swollen, enlarged glands. NEUROLOGICAL: -altered mental status or loss of consciousness, -headache, - neurologic symptoms PSYCHIATRIC: -anxiety, -depression. ALL OTHER SYSTEMS REVIEWED AND NEGATIVE. Physical Exam - Vital signs Vitals: Temp Pulse Resp BP Pulse Ox 97.9 F 70 20 144/63 H 96 04/19/18 21:24 04/19/18 21:24 04/19/18 21:24 04/19/18 21:24 04/19/18 21:24 - Notes Notes: PHYSICAL EXAMINATION: GENERAL: Well-appearing, well-nourished and in no acute distress. HEAD: Atraumatic, normocephalic. EYES: Pupils equal round and reactive to light, extraocular movements intact, sclera anicteric, conjunctiva are normal. ENT: nares patent, oropharynx clear without exudates. Moist mucous membranes. NECK: Normal range of motion, supple without lymphadenopathy LUNGS: Breath sounds clear to auscultation bilaterally and equal. No wheezes rales or rhonchi. HEART: Regular rate and rhythm without murmurs ABDOMEN: Soft, nontender, normoactive bowel sounds. No guarding, no rebound. No masses appreciated. BACK: No midline tenderness. Mild left paralumbar muscle tenderness. EXTREMITIES: Strong distal pulses. Normal range of motion, no pitting or edema. No cyanosis. NEUROLOGICAL: Cranial nerves grossly intact. Normal speech, normal gait. Normal sensory and motor exams. PSYCH: Normal mood, normal affect. SKIN: Superficial abrasion over dorsal surface of left foot with mild swelling, Warm, Dry, normal turgor. Course - Re-evaluation Re-evalutation: Patient with no red flag signs for her chronic low back pain. She said she normally receives IM doses of antiemetics and pain medicine and she feels much better. After she received these medications, she was able to walk for she will follow-up with her primary care physician. There is no increased left leg swelling from her baseline to suggest a DVT and her abdomen is completely soft and nontender. Will discharge patient home with follow-up at her primary care physician. Given very strict return precautions and she understands. - Vital Signs Vital signs: Temp Pulse Resp BP Pulse Ox 97.9 F 70 20 144/63 H 96 07/21/18 21:24 04/19/18 21:24 04/19/18 21:24 04/19/18 21:24 04/19/18 21:24 Discharge - Discharge Clinical Impression: Vomiting Qualifiers: Vomiting type: unspecified Vomiting Intractability: non-intractable Nausea presence: with nausea Qualified Code(s): R11.2 - Nausea with vomiting, unspecified Chronic back pain Qualifiers: Back pain location: low back pain Back pain laterality: bilateral Sciatica presence: without sciatica Qualified Code(s): M54.5 - Low back pain; G89.29 - Other chronic pain; G89.29 - Other chronic pain Condition: Stable Disposition: HOME, SELF-CARE Additional Instructions: LOW BACK PAIN: Three out of every four people will have an episode of disabling back pain during their lifetime. Most commonly the pain is due to straining of the muscles and ligaments in the low back. Usual treatment includes: (1) Rest on a firm surface. Avoid lying on your stomach. (2) Ice pack the painful area. After a few days, gentle heat may be used intermittently to relax the area, or ice packs can be continued. (3) Medication may be needed -- muscle relaxers and antiinflammatory medicines are commonly used. (4) As the back improves, exercises are prescribed to strengthen the back and abdominal muscles. Your doctor will advise you on the proper care for your back at each stage in your recovery. You may be better in a few days -- or healing may take several weeks. If new symptoms of a "herniated disc" (radiation of pain, numbness, or tingling down the back of the leg or weakness in the leg) occur, you should be re-examined. Further testing may be necessary. PAIN MEDICATION INJECTION: You have received an injection of a pain medication. You should experience significant pain relief within 45 minutes. If this injection was a narcotic -- it will impair your judgement, slow your reaction time and make you sleepy (as well as relieve your pain). Narcotics also can cause nausea. You should not drive, work with machinery, or perform any task requiring mental alertness until all effects of the medication are gone -- six to eight hours. Do not take any alcohol, or sedatives, and do not take any other medication without checking with your physician. ICE PACKS: Apply ice packs frequently against the painful area. Many different schedules are recommended, such as "20 minutes on, 20 minutes off" or "one hour ice, two hours rest." If you need to work, you may need to go longer between ice treatments. You should plan to have the area ice packed AT LEAST one fourth of the time. The ice should be applied over the wrap, tape, or splint, or over a layer of cloth -- not directly against the skin. Some ice bags have a built-in cloth and can be put directly on the skin. WARM PACKS: After approximately two days, apply gentle heat (such as a heating pad or hot water bottle) for about 20 to 30 minutes about every two hours -- at least four times daily. Warmth and elevation will help you make a more rapid recovery , and will ease the pain considerably. Do not use HOT heat, and never apply heat for longer than 30 minutes. The continuous heat can invisibly damage skin and muscles -- even when no burn is seen on the surface. Damaged muscles can make you MORE sore. FOLLOW-UP CARE: If you have been referred to a physician for follow-up care, call the physician s office for an appointment as you were instructed or within the next two days. If you experience worsening or a significant change in your symptoms, notify the physician immediately or return to the Emergency Department at any time for re-evaluation. Forms: Elevated Blood Pressure Referrals: ISELA TAM MD [Primary Care Provider] - Follow up as needed
[2018-04-19 23:32] VITALS: BP 141/74
== END 2018-04-19 23:32 | disposition home or self-care (01) ==
LOC: ER 20:52
DX: M54.5 Low back pain (principal); G89.29 Other chronic pain; R11.2 Nausea with vomiting, unspecified; Z88.6 Allergy status to analgesic agent; Z86.718 Personal history of other venous thrombosis and embolism
CPT/HCPCS: 99283; 96372; J1885; J1170; J2550

== ENCOUNTER 2018-05-04 18:13 | Emergency (ER) | payer MEDICARE ==
[2018-05-04] MEDS ORDERED: ONDANSETRON HCL INJ/PF 4 MG/2 ML SDV IV ONE (19:16)
[2018-05-04] MEDS ORDERED: NORMAL SALINE 1000 ML 1,000 ML IV ONE (19:17)
[2018-05-04] MEDS ORDERED: OXYCODONE-ACETAMINOPHEN 5-325 MG TABLET PO ONE (19:17)
[2018-05-04] MEDS ORDERED: ASPIRIN 81 MG TABLET, CHEWABLE PO ONE (19:17)
--- NOTE | 2018-05-04 19:19 | ER Document Report ---
ED Medical Screen (RME) - General Mode of Arrival: Ambulatory Information source: Patient TRAVEL OUTSIDE OF THE U.S. IN LAST 30 DAYS: No <RAMIRO BAUM - Last Filed: 05/04/18 20:14> <ROBBY ATKINSON - Last Filed: 05/04/18 20:46> - General Chief Complaint: Nausea/Vomiting Stated Complaint: VOMITING Time Seen by Provider: 05/04/18 19:09 Notes: Patient is a 57 year old female presenting to the emergency department complaining of multiple symptoms including back pain, nausea, vomiting, chest pain and left leg swelling onset last night. Patient states her back pain began around 18:30 last night and has progressively worsened. Patient has a history of back surgeries and states her back pain is similar to the pain she used to have before she had back surgery. She states due to this pain she has been continuously vomiting and unable to hold down solids. She describes her chest pain as a heaviness on her chest. She then complains of left leg swelling, further stating she has a history of edema and blood clots and has recently came to [place] from [place]. Patient denies any shortness of breath, fevers, or pulmonary embolism. GENERAL: Alert,tearful. No acute distress. HEAD: Normocephalic, Atraumatic. NECK: Full range of motion. Supple. Trachea midline. LUNGS: Clear to auscultation bilaterally, no wheezes, rales, or rhonchi. No respiratory distress. HEART: Regular rate and rhythm. No murmurs, gallops, or rubs. ABDOMEN: Soft, non-tender. Non-distended. Bowel sounds present in all 4 quadrants. EXTREMITIES: Moves all four extremities spontaneously. PSYCH: Tearful. BACK: Midline bony tenderness from T6-T10. I have greeted and performed a rapid initial assessment of this patient. A comprehensive ED assessment and evaluation of the patient, analysis of test results and completion of the medical decision making process will be conducted by additional ED providers. (RAMIRO BAUM) - Related Data Allergies/Adverse Reactions: morphine Allergy (Verified 05/28/17 17:26) sumatriptan [From Imitrex] Allergy (Verified 05/28/17 17:26) sumatriptan succinate [From Imitrex] Allergy (Verified 05/28/17 17:26) Past Medical History - Social History Chew tobacco use (# tins/day): No Frequency of alcohol use: None Drug Abuse: None - Past Medical History Cardiac Medical History: 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, Hx Pulmonary Embolism Denies: Hx Atrial Fibrillation, Hx Congestive Heart Failure, Hx Coronary Artery Disease, Hx Heart Attack, Hx Hypercholesterolemia, Hx Hypertension, Hx Peripheral Vascular Disease, Hx Heart Murmur Neurological Medical History: Reports: Hx Migraine Renal/ Medical History: Denies: Hx Peritoneal Dialysis Musculoskeltal Medical History: Reports Hx Muscle Spasm Past Surgical History: Reports: Hx Bowel Surgery - Lap lysis of adhesions, Hx Hysterectomy, Hx Orthopedic Surgery - back 2 - Immunizations Immunizations up to date: Yes Hx Diphtheria, Pertussis, Tetanus Vaccination: No <RAMIRO ABUM - Last Filed: 05/04/18 20:14> - Vital signs Vitals: Temp Pulse Resp BP Pulse Ox 98.5 F 71 16 136/76 H 96 05/04/18 18:27 05/04/18 18:27 05/04/18 18:27 05/04/18 18:27 05/04/18 18:27 Course - Laboratory Result Diagrams: 05/04/18 20:37 05/04/18 20:37 <ROBBY ATKINSON - Last Filed: 05/04/18 20:46> - Vital Signs Vital signs: Temp Pulse Resp BP Pulse Ox 98.5 F 71 16 136/76 H 96 05/04/18 18:27 05/04/18 18:27 05/04/18 18:27 05/04/18 18:27 05/04/18 18:27 Doctor's Discharge <RAMIRO BAUM - Last Filed: 05/04/18 20:14> <ROBBY ATKINSON - Last Filed: 05/04/18 20:46> - Discharge Referrals: ISELA TAM MD [Primary Care Provider] - Follow up as needed
--- NOTE | 2018-05-04 20:15 | RADIOLOGY REPORT (SQ) ---
EXAM DESCRIPTION: CHEST SINGLE VIEW COMPLETED DATE/TIME: 05/04/2018 7:59 pm REASON FOR STUDY: chest pain, SOB COMPARISON: 06/24/2012 EXAM PARAMETERS: NUMBER OF VIEWS: One view. TECHNIQUE: Single frontal radiographic view of the chest acquired. RADIATION DOSE: NA LIMITATIONS: None. FINDINGS: LUNGS AND PLEURA: No acute opacities, masses or pneumothorax. No pleural effusion. MEDIASTINUM AND HILAR STRUCTURES: Stable. HEART AND VASCULAR STRUCTURES: Stable. BONES: No acute findings. HARDWARE: None in the chest. OTHER: No other significant finding. IMPRESSION: NO ACUTE RADIOGRAPHIC FINDING IN THE CHEST. TECHNICAL DOCUMENTATION: JOB ID: [id number] [id number] 2010 [employer]- All Rights Reserved Reading location - IP/workstation name: [email or web address]
[2018-05-04 20:45] LABS: ABSOLUTE BASOPHILS # (AUTO) 0.1 10^3/uL (0.0-0.2); ABSOLUTE EOSINOPHILS # (AUTO) 0.5 10^3/uL (0.0-0.6); ABSOLUTE LYMPHOCYTES (AUTO) 4.2 10^3/uL (0.5-4.7); ABSOLUTE MONOCYTES (AUTO) 0.6 10^3/uL (0.1-1.4); BASOPHILS % (AUTO) 0.8 % (0-2); HEMATOCRIT 41.6 % (36.0-47.0); LYMPHOCYTES % (AUTO) 49.8 % (13-45); MEAN CORPUSCULAR HEMOGLOBIN 30.8 pg (27.0-33.4); MEAN CORPUSCULAR HGB CONC 33.6 g/dL (32.0-36.0); MEAN CORPUSCULAR VOLUME 92 fl (80-97); MONOCYTES % (AUTO) 7.6 % (3-13); PLATELET COUNT 230 10^3/uL (150-450); RED BLOOD COUNT 4.53 10^6/uL (3.72-5.28); RED CELL DISTRIBUTION WIDTH 14.8 % (11.5-14.0); SEGMENTED NEUTROPHILS % (AUTO) 35.8 % (42-78); TOTAL CELLS COUNTED % (AUTO) 100 %; WHITE BLOOD COUNT 8.4 10^3/uL (4.0-10.5)
[2018-05-04 21:05] LABS: ALANINE AMINOTRANSFERASE 25 U/L (9-52); ALBUMIN 4.1 g/dL (3.5-5.0); ALKALINE PHOSPHATASE 85 U/L (38-126); ANION GAP 9 (5-19); ASPARTATE AMINO TRANSFERASE 32 U/L (14-36); BILIRUBIN,DIRECT 0.3 mg/dL (0.0-0.4); BILIRUBIN,TOTAL 0.4 mg/dL (0.2-1.3); BLOOD UREA NITROGEN 9 mg/dL (7-20); CALCIUM 9.1 mg/dL (8.4-10.2); CARBON DIOXIDE 28 mmol/L (22-30); CHLORIDE 107 mmol/L (98-107); CREATINE KINASE 54 U/L (30-135); GLUCOSE 102 mg/dL (75-110); LIPASE 60.9 U/L (23-300); POTASSIUM 3.6 mmol/L (3.6-5.0); TOTAL PROTEIN 7.9 g/dL (6.3-8.2)
[2018-05-04 21:17] LABS: CREATINE KINASE MB 0.41 ng/mL (<4.55)
[2018-05-04] MEDS ORDERED: FENTANYL CITRATE INJ/PF 100 MCG/2 ML AMPUL IV ONE (21:18)
[2018-05-04] MEDS ORDERED: METOCLOPRAMIDE HCL INJ/PF 10 MG/2 ML SDV IV ONE (21:18)
[2018-05-04 21:20] LABS: TROPONIN I < 0.012 ng/mL
[2018-05-04] MEDS ORDERED: HYDROMORPHONE HCL INJ/PF 2 MG/ML AMPULE IV ONE (21:27)
--- NOTE | 2018-05-04 21:30 | ER Document Report ---
ED Neck/Back Problem - General Mode of Arrival: Ambulatory TRAVEL OUTSIDE OF THE U.S. IN LAST 30 DAYS: No <DIXIE KAM - Last Filed: 05/05/18 00:55> <SILVANO SHABAZZ - Last Filed: 05/05/18 03:20> - General Chief Complaint: Nausea/Vomiting Stated Complaint: VOMITING Time Seen by Provider: 05/04/18 19:09 Notes: Patient is a 57-year-old female that presents to the emergency department today with multiple pain complaints including back pain, left lower extremity pain/ swelling, abdominal "burning", and associated nausea/vomiting. According to the triage note, the patient is visiting here from [place]. Patient mentions "she is supposed to have surgery soon" on her back but does not elaborate on the surgery. patient has a history of DVTs. Patient is able to move all her extremities, has no weakness, saddle anesthesia, incontinence, or numbness/ tingling. (DIXIE KAM) - Related Data Allergies/Adverse Reactions: morphine Allergy (Verified 05/28/17 17:26) sumatriptan [From Imitrex] Allergy (Verified 05/28/17 17:26) sumatriptan succinate [From Imitrex] Allergy (Verified 05/28/17 17:26) Past Medical History - General Information source: Patient - Social History Smoking Status: Never Smoker Chew tobacco use (# tins/day): No Frequency of alcohol use: None Drug Abuse: None Family History: None, CAD, DM, Malignancy, Other - copd Patient has suicidal ideation: No Patient has homicidal ideation: No - Past Medical History Cardiac Medical History: 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, Hx Pulmonary Embolism Neurological Medical History: Reports: Hx Migraine Musculoskeletal Medical History: Reports Hx Muscle Spasm Past Surgical History: Reports: Hx Bowel Surgery - Lap lysis of adhesions, Hx Hysterectomy, Hx Orthopedic Surgery - back 2 - Immunizations Immunizations up to date: Yes Hx Diphtheria, Pertussis, Tetanus Vaccination: No Hx Pneumococcal Vaccination: 12/29/10 <DIXIE KAM - Last Filed: 05/05/18 00:55> Review of Systems - Review of Systems Constitutional: No symptoms reported EENT: No symptoms reported Cardiovascular: No symptoms reported Respiratory: No symptoms reported Gastrointestinal: See HPI, Nausea, Vomiting, Other - abdominal burning Genitourinary: No symptoms reported Female Genitourinary: No symptoms reported Musculoskeletal: See HPI, Back pain Skin: No symptoms reported Hematologic/Lymphatic: No symptoms reported Neurological/Psychological: denies: Weakness, Numbness, Tingling -: Yes All other systems reviewed and negative <DIXIE KAM - Last Filed: 05/05/18 00:55> Physical Exam - Vital signs Interpretation: Normal - General General appearance: Appears well, Alert - HEENT Head: Normocephalic, Atraumatic Eyes: Normal Pupils: PERRL Neck: Normal - Respiratory Respiratory status: No respiratory distress Chest status: Nontender Breath sounds: Normal Chest palpation: Normal - Cardiovascular Rhythm: Regular Heart sounds: Normal auscultation Murmur: No - Abdominal Inspection: Normal Distension: No distension Bowel sounds: Normal Tenderness: Nontender Organomegaly: No organomegaly - Back Back: Normal, Tender - Mid back - Extremities General upper extremity: Normal inspection, Nontender, Normal color, Normal ROM , Normal temperature General lower extremity: Normal inspection, Nontender, Normal color, Normal ROM , Normal temperature, Normal weight bearing. No: Nate's sign - Neurological Neuro grossly intact: Yes Cognition: Normal Orientation: AAOx4 David Coma Scale Eye Opening: Spontaneous David Coma Scale Verbal: Oriented David Coma Scale Motor: Obeys Commands [place] Coma Scale Total: 15 Speech: Normal Motor strength normal: LUE, RUE, LLE, RLE Sensory: Normal - Psychological Associated symptoms: Normal affect, Normal mood - Skin Skin Temperature: Warm Skin Moisture: Dry Skin Color: Normal <SILVANO SHABAZZ - Last Filed: 05/05/18 03:20> - Vital signs Vitals: Temp Pulse Resp BP Pulse Ox 98.5 F 71 16 136/76 H 96 05/04/18 18:27 05/04/18 18:27 05/04/18 18:27 05/04/18 18:27 05/04/18 18:27 Course - Laboratory Result Diagrams: 05/04/18 20:37 05/04/18 20:37 <DIXIE KAM - Last Filed: 05/05/18 00:55> - Laboratory Result Diagrams: 05/04/18 20:37 05/04/18 20:37 - Diagnostic Test Radiology reviewed: Reports reviewed <SILVANO SHABAZZ - Last Filed: 05/05/18 03:20> - Re-evaluation Re-evalutation: 05/04/18 21:28 Fentanyl ordered, patient reported to nurse she was allergic to morphine, requesting dilaudid. 05/05/18 00:55 Patient's ride is here and she wishes to go home (DIXIE KAM) Patient is a 57-year-old female who comes in complaining of back pain. Patient also states that she has had leg swelling recently. Dopplers negative for DVT. Patient attempted to have CTA done but line blue. Patient does not have any evidence for DVT and no symptoms of PE. No trouble breathing. No pleuritic chest pain. Patient is complaining of back pain which she has had chronically. She is requesting Dilaudid and states that the only thing that works for her pain. Patient is feeling better. No acute findings on imaging. She will be discharged home and is to follow-up with her pain doctor when she is able. Ambulates easily out of the department. Neurovascularly intact. (SILVANO SHABAZZ) - Vital Signs Vital signs: Temp Pulse Resp BP Pulse Ox 98.5 F 71 16 124/69 99 05/04/18 18:27 05/04/18 18:27 05/05/18 01:01 05/05/18 01:01 05/05/18 01:01 - Laboratory Laboratory results interpreted by me: 05/04/18 05/04/18 20:37 21:40 RDW 14.8 H Seg Neutrophils % 35.8 L Lymphocytes % 49.8 H Urine Blood MODERATE H Ur Leukocyte Esterase TRACE H Discharge <DIXIE KAM - Last Filed: 05/05/18 00:55> <SILVANO SHABAZZ - Last Filed: 05/05/18 03:20> - Discharge Clinical Impression: Back pain Qualifiers: Back pain location: thoracic back pain Chronicity: chronic Back pain laterality : unspecified Qualified Code(s): M54.6 - Pain in thoracic spine; G89.29 - Other chronic pain; G89.29 - Other chronic pain Vomiting Qualifiers: Vomiting type: unspecified Vomiting Intractability: non-intractable Nausea presence: with nausea Qualified Code(s): R11.2 - Nausea with vomiting, unspecified Condition: Stable Disposition: HOME, SELF-CARE Instructions: Chronic Back Pain ([facility]), Nausea or Vomiting, Nonspecific ([facility]) Referrals: ISELA TAM MD [Primary Care Provider] - Follow up tomorrow Scribe Attestation: 05/05/18 03:20 I personally performed the services described in the documentation, reviewed and edited the documentation which was dictated to the scribe in my presence, and it accurately records my words and actions. (SILVANO SHABAZZ) Scribe Documentation - Scribe Written by Gerard:: Gerard David, 05/05/2018 0028 acting as scribe for :: Denzel <DIXIE KAM - Last Filed: 05/05/18 00:55>
[2018-05-04] MEDS ORDERED: PROMETHAZINE HCL INJ 25 MG/1 ML VIAL IM ONE (22:17)
--- NOTE | 2018-05-04 23:46 | EKG REPORT ---
SEVERITY:- NORMAL ECG - SINUS RHYTHM : Confirmed by: Stephanie Bolton 04-May-2018 23:45:25
--- NOTE | 2018-05-04 23:52 | RADIOLOGY REPORT (SQ) ---
EXAM DESCRIPTION: CT ABDOMEN WITHOUT IV CONTRAST COMPLETED DATE/TME: 05/04/2018 23:14 CLINICAL HISTORY: 57 years Female, pain n/v Comparison: None. Technique: No contrast. Coronal and sagittal reformat. This exam was performed according to our departmental dose-optimization program, which includes automated exposure control, adjustment of the mA and/or kV according to patient size and/or use of iterative reconstruction technique.[facility]: Dose Right [facility]: CareDose [facility]: Dose Right [facility]: Teradose 4D [facility]: Smart staila technologies LIMITATIONS: None Findings: Mild hepatic steatosis. No ascites. Surgical clips of the right paracentral abdomen. Gluteal calcified granulomata. Unenhanced lower thorax, abdominopelvic structures, and musculoskeleton appear otherwise grossly unremarkable. Impression: No acute findings. Mild hepatic steatosis.
[2018-05-04 23:56] LABS: APPEARANCE,URINE SLIGHTLY-CLOUDY; BILIRUBIN,URINE NEGATIVE (NEGATIVE); COLOR,URINE YELLOW; GLUCOSE, URINE NEGATIVE (NEGATIVE); KETONES,URINE NEGATIVE (NEGATIVE); LEUKOCYTE ESTERASE,URINE TRACE (NEGATIVE); NITRITE,URINE NEGATIVE (NEGATIVE); PROTEIN,URINE NEGATIVE (NEGATIVE); URINE SPECIFIC GRAVITY 1.011; UROBILINOGEN,URINE NEGATIVE mg/dL (<2.0)
[2018-05-05] MEDS ORDERED: HYDROMORPHONE HCL INJ/PF 2 MG/ML AMPULE IV ONE (00:11)
[2018-05-05] MEDS ORDERED: HYDROCODONE/ACETAMINOPHEN 5-325 MG (6 TAB/ER DISP) PO PRN (00:53)
[2018-05-05] MEDS ORDERED: ONDANSETRON ODT 4 MG TAB (6 TAB/ER DISP) PO PRN (00:53)
[2018-05-05 01:28] VITALS: BP 124/69
--- NOTE | 2018-05-05 10:34 | XCELERA REPORT ---
[address] [address] Lower Extremity Venous Evaluation Name: KRISTA RAHMAN Age: 57 yrs Gender: Female : 1960 Patient Status: Emergency Patient Location: ER Study Date: 05/04/2018 10:28 PM Procedure: Color flow and duplex imaging of the veins of the left lower extremity as well as the right Common Femoral vein. Reason For Study: left leg swelling, h/o DVT x 2 Ordering Physician: ROBBY ATKINSON Performed By: Martin Jewell Right Sided Venous Evaluation The right common femoral vein is fully compressible. Spontaneous and phasic flow is present in the right common femoral vein. Left Sided Venous Evaluation Normal vessel filling wall to wall, compression and augmentation as well as Colour flow down to the infrageniculate veins. Interpretation Summary No duplex evidence of DVT or obstruction in the left lower extremity nor in the right Common Femoral vein. : ROBBY ATKINSON > [employer]
== END 2018-05-05 01:27 | disposition home or self-care (01) ==
LOC: ER 18:13
DX: G89.29 Other chronic pain (principal); M54.6 Pain in thoracic spine; R11.2 Nausea with vomiting, unspecified; R19.8 Other specified symptoms and signs involving the digestive system and abdomen; M79.605 Pain in left leg; M79.89 Other specified soft tissue disorders; Z86.718 Personal history of other venous thrombosis and embolism; Z86.711 Personal history of pulmonary embolism; Z88.5 Allergy status to narcotic agent; Z88.6 Allergy status to analgesic agent
CPT/HCPCS: 93005; 96376; 99285; 96372; 96374; 96375; 36415; 87086; 82553; 82550; 83690; 85025; 87088; 80053; 81001; 84484; 87186; 93971 ×2; 71045; 76380; 93010; A9270 ×4; J2765; J1170 ×2; J2550; J2405; J7030

== ENCOUNTER 2018-05-08 13:18 | Emergency (ER) | payer MEDICARE ==
[2018-05-08] MEDS ORDERED: ONDANSETRON HCL 8 MG TABLET PO ONE (16:25)
[2018-05-08] MEDS ORDERED: KETOROLAC TROMETHAMINE 60 MG/2 ML SDV IM ONE (16:26)
[2018-05-08] MEDS ORDERED: LIDOCAINE 2% VISCOUS SOLN 20 ML UDCUP PO ONE (16:28)
[2018-05-08] MEDS ORDERED: METOCLOPRAMIDE HCL ORAL SOLN 10 MG/10 ML UDCUP PO ONE (16:29)
--- NOTE | 2018-05-08 16:35 | ER Document Report ---
ED Medical Screen (RME) - General Chief Complaint: Abdominal Pain Stated Complaint: BACK PAIN/VOMITING Time Seen by Provider: 05/08/18 16:15 Mode of Arrival: Ambulatory Information source: Patient TRAVEL OUTSIDE OF THE [place] IN LAST 30 DAYS: No - HPI Notes: 05/08/18 16:29 57-year-old female presents to the emergency room for complaints of back pain, nausea vomiting, substernal chest discomfort with left leg swelling that occurred last night. Patient has chronic back pain and states that her pain started last night has become progressively worse. Reports substernal chest pain with nausea and vomiting. States she is unsure if she is having chest pain or if it is because of her nausea or vomiting. Patient denies any numbness or tingling down bilateral lower extremities. Patient states she has a history of blood clots in her legs. Denies any trauma. Denies fevers, chills , palpitations, shortness of breath, dyspnea, going to maintain diarrhea, abdominal pain, hematuria,blurred vision, double vision, loss of vision, speech changes, LH, dizziness, syncope, headaches, wheezing, ST, URI, neck pain, weakness, bowel or bladder dysfunction, saddle anesthesia, numbness or tingling in bilateral upper or lower extremities equally, muscle paralysis, weakness in bilateral upper or lower extremities equally or rash. s1 s2 regular lungs cta Able to reproduce substernal chest pain Lower left leg swelling by comparison to right lower leg. Distal pulses +2 bilaterally and equally. Tenderness on lumbar spine L1-L3 I have greeted and performed a rapid initial assessment of this patient. A comprehensive ED assessment and evaluation of the patient, analysis of test results and completion of medical decision making process will be conducted by an additional ED providers. - Related Data Allergies/Adverse Reactions: fentanyl Allergy (Verified 05/08/18 13:22) morphine Allergy (Verified 05/08/18 13:22) sumatriptan [From Imitrex] Allergy (Verified 05/08/18 13:22) sumatriptan succinate [From Imitrex] Allergy (Verified 05/08/18 13:22) Past Medical History - Social History Chew tobacco use (# tins/day): No Frequency of alcohol use: None Drug Abuse: None - Past Medical History Cardiac Medical History: 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, Hx Pulmonary Embolism Denies: Hx Atrial Fibrillation, Hx Congestive Heart Failure, Hx Coronary Artery Disease, Hx Heart Attack, Hx Hypercholesterolemia, Hx Hypertension, Hx Peripheral Vascular Disease, Hx Heart Murmur Neurological Medical History: Reports: Hx Migraine Renal/ Medical History: Denies: Hx Peritoneal Dialysis Musculoskeltal Medical History: Reports Hx Muscle Spasm Past Surgical History: Reports: Hx Bowel Surgery - Lap lysis of adhesions, Hx Cholecystectomy, Hx Hysterectomy, Hx Orthopedic Surgery - back 2 - Immunizations Immunizations up to date: Yes Hx Diphtheria, Pertussis, Tetanus Vaccination: No Physical Exam - Vital signs Vitals: Temp Pulse Resp BP Pulse Ox 98.3 F 90 20 144/85 H 98 05/08/18 14:10 05/08/18 14:10 05/08/18 14:10 05/08/18 14:10 05/08/18 14:10 Course - Vital Signs Vital signs: Temp Pulse Resp BP Pulse Ox 98.3 F 90 20 144/85 H 98 05/08/18 14:10 05/08/18 14:10 05/08/18 14:10 05/08/18 14:10 05/08/18 14:10 Doctor's Discharge - Discharge Referrals: ISELA TAM MD [Primary Care Provider] - Follow up as needed
--- NOTE | 2018-05-08 17:23 | RADIOLOGY REPORT (SQ) ---
EXAM DESCRIPTION: L SPINE WHOLE COMPLETED DATE/TIME: 05/08/2018 5:04 pm REASON FOR STUDY: lumbar pain x 1 week COMPARISON: 05/04/2018 NUMBER OF VIEWS: Five views including obliques. TECHNIQUE: AP, lateral, oblique, and sacral radiographic images acquired of the lumbar spine. LIMITATIONS: None. FINDINGS: MINERALIZATION: Normal. SEGMENTATION: Normal. No transitional anatomy. ALIGNMENT: Normal. VERTEBRAE: Maintained height. No fracture or worrisome bone lesion. DISCS: Multilevel disc space narrowing with osteophytes. POSTERIOR ELEMENTS: Pedicles and facets are intact. No pars defect or posterior arch defects. Facet arthropathy is present. HARDWARE: None in the spine. PARASPINAL SOFT TISSUES: Normal. PELVIS: Intact as visualized. No fractures or worrisome bone lesions. SI joints intact. OTHER: No other significant finding. IMPRESSION: SPONDYLOSIS WITHOUT BONE LESION OR FRACTURE. TECHNICAL DOCUMENTATION: JOB ID: [id number] [place]-[address] 2010 [employer]- All Rights Reserved Reading location - IP/workstation name: [email or web address]
[2018-05-08] MEDS ORDERED: ONDANSETRON 4 MG TAB.RAPDIS PO ONE ×2 (17:54→23:45)
[2018-05-08 18:28] LABS: ABSOLUTE EOSINOPHILS # (AUTO) 0.1 10^3/uL (0.0-0.6); ABSOLUTE LYMPHOCYTES (AUTO) 2.4 10^3/uL (0.5-4.7); ABSOLUTE MONOCYTES (AUTO) 0.4 10^3/uL (0.1-1.4); ABSOLUTE NEUT (AUTO) 6.1 10^3/uL (1.7-8.2); BASOPHILS % (AUTO) 0.5 % (0-2); EOSINOPHILS % (AUTO) 0.6 % (0-6); HEMATOCRIT 46.6 % (36.0-47.0); HEMOGLOBIN 15.6 g/dL (12.0-15.5); LYMPHOCYTES % (AUTO) 26.4 % (13-45); MEAN CORPUSCULAR HEMOGLOBIN 30.7 pg (27.0-33.4); MEAN CORPUSCULAR HGB CONC 33.5 g/dL (32.0-36.0); MEAN CORPUSCULAR VOLUME 92 fl (80-97); MONOCYTES % (AUTO) 4.6 % (3-13); PLATELET COUNT 277 10^3/uL (150-450); RED BLOOD COUNT 5.09 10^6/uL (3.72-5.28); RED CELL DISTRIBUTION WIDTH 14.6 % (11.5-14.0); SEGMENTED NEUTROPHILS % (AUTO) 67.9 % (42-78); TOTAL CELLS COUNTED % (AUTO) 100 %
[2018-05-08 18:49] LABS: ALANINE AMINOTRANSFERASE 27 U/L (9-52); ALBUMIN 4.5 g/dL (3.5-5.0); ALKALINE PHOSPHATASE 82 U/L (38-126); ANION GAP 15 (5-19); ASPARTATE AMINO TRANSFERASE 28 U/L (14-36); BILIRUBIN,DIRECT 0.3 mg/dL (0.0-0.4); BILIRUBIN,TOTAL 0.6 mg/dL (0.2-1.3); BLOOD UREA NITROGEN 9 mg/dL (7-20); CALCIUM 9.9 mg/dL (8.4-10.2); CARBON DIOXIDE 24 mmol/L (22-30); CHLORIDE 107 mmol/L (98-107); CREATINE KINASE 52 U/L (30-135); GLUCOSE 100 mg/dL (75-110); SODIUM 145.8 mmol/L (137-145); TOTAL PROTEIN 8.4 g/dL (6.3-8.2)
[2018-05-08 19:03] LABS: CREATINE KINASE MB < 0.22 ng/mL (<4.55); TROPONIN I < 0.012 ng/mL
--- NOTE | 2018-05-08 22:11 | ER Document Report ---
ED General - General Chief Complaint: Abdominal Pain Stated Complaint: BACK PAIN/VOMITING Time Seen by Provider: 05/08/18 16:15 Mode of Arrival: Ambulatory TRAVEL OUTSIDE OF THE [place] IN LAST 30 DAYS: No - HPI Notes: 57-year-old female presents to the emergency room for complaints of back pain, nausea vomiting, substernal chest discomfort with left leg swelling that occurred last night. Patient has chronic back pain and states that her pain started last night has become progressively worse. Reports substernal chest pain with nausea and vomiting. States she is unsure if she is having chest pain or if it is because of her nausea or vomiting. Patient denies any numbness or tingling down bilateral lower extremities. Patient states she has a history of blood clots in her legs. Denies any trauma. Denies fevers, chills , palpitations, shortness of breath, dyspnea, going to maintain diarrhea, abdominal pain, hematuria,blurred vision, double vision, loss of vision, speech changes, LH, dizziness, syncope, headaches, wheezing, ST, URI, neck pain, weakness, bowel or bladder dysfunction, saddle anesthesia, numbness or tingling in bilateral upper or lower extremities equally, muscle paralysis, weakness in bilateral upper or lower extremities equally or rash. The patient was seen 4 days ago with similar complaint of vomiting and diffuse pain and diarrhea. She had a negative CT scan of the abdomen and a negative chest x-ray. Urinalysis done at the time was mildly positive for a UTI and a urine culture was obtained which showed Klebsiella pneumonia which was sensitive to Rocephin and Keflex. The patient did not receive any antibiotics for this. Patient reports that she is on chronic Percocet therapy 5/325 4 times a day and she acutely ran out 5 days ago prior to the onset of her nausea and vomiting and worsening pain. The patient reports significant insomnia with mild diarrhea and vomiting and worsening of her chronic back pain. No incontinence. No focal numbness or weakness. Patient reports she is vacationing in the area from [place] and is supposed to return to [place] in 1 week where she is scheduled for a repeat surgery on her lower back. She also states she is waiting surgery for knee replacement. - Related Data Allergies/Adverse Reactions: fentanyl Allergy (Verified 05/08/18 13:22) morphine Allergy (Verified 05/08/18 13:22) sumatriptan [From Imitrex] Allergy (Verified 05/08/18 13:22) sumatriptan succinate [From Imitrex] Allergy (Verified 05/08/18 13:22) Past Medical History - General Information source: Patient - Social History Smoking Status: Never Smoker Chew tobacco use (# tins/day): No Frequency of alcohol use: None Drug Abuse: None Lives with: Family Family History: None, CAD, DM, Malignancy, Other - copd Patient has suicidal ideation: No Patient has homicidal ideation: No - Past Medical History Cardiac Medical History: 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, Hx Pulmonary Embolism Denies: Hx Atrial Fibrillation, Hx Congestive Heart Failure, Hx Coronary Artery Disease, Hx Heart Attack, Hx Hypercholesterolemia, Hx Hypertension, Hx Peripheral Vascular Disease, Hx Heart Murmur Neurological Medical History: Reports: Hx Migraine Renal/ Medical History: Denies: Hx Peritoneal Dialysis Musculoskeletal Medical History: Reports Hx Muscle Spasm Past Surgical History: Reports: Hx Bowel Surgery - Lap lysis of adhesions, Hx Cholecystectomy, Hx Hysterectomy, Hx Orthopedic Surgery - back 2 - Immunizations Immunizations up to date: Yes Hx Diphtheria, Pertussis, Tetanus Vaccination: No Hx Pneumococcal Vaccination: 12/29/10 Review of Systems - Review of Systems -: Yes All other systems reviewed and negative Physical Exam - Vital signs Vitals: Temp Pulse Resp BP Pulse Ox 98.3 F 90 20 144/85 H 98 05/08/18 14:10 05/08/18 14:10 05/08/18 14:10 05/08/18 14:10 05/08/18 14:10 - Notes Notes: PHYSICAL EXAMINATION: GENERAL: Moderate discomfort. HEAD: Atraumatic, normocephalic. EYES: Pupils equal round and reactive to light, extraocular movements intact, conjunctiva are normal. ENT: Nares patent, oropharynx clear without exudates. Moist mucous membranes. NECK: Normal range of motion, supple without lymphadenopathy LUNGS: Breath sounds clear to auscultation bilaterally and equal. No wheezes rales or rhonchi. HEART: Regular rate and rhythm without murmurs ABDOMEN: Soft, nontender, nondistended abdomen. No guarding, no rebound. No masses appreciated. Female : deferred Musculoskeletal: Normal range of motion, no pitting or edema. No cyanosis. Patient has diffuse lower back pain more to the paraspinal region. No obvious CVA tenderness. She states this is the usual location of her back pain and there is mild radiation down to the posterior gluteal region. No erythema or crepitance. NEUROLOGICAL: Cranial nerves grossly intact. Normal speech, normal gait. Normal sensory, motor exams PSYCH: Normal mood, normal affect. SKIN: Warm, Dry, normal turgor, no rashes or lesions noted. Course - Re-evaluation Re-evalutation: 05/08/18 22:57 Patient was given IM Phenergan and Dilaudid and shot of Rocephin based upon previous urine culture results. 05/08/18 23:46 Patient with continued nausea. The patient was given p.o. Zofran 8 mg and Ativan 2 mg IM. 05/09/18 01:15 Patient still with persistent pain and vomiting. We will give additional shot of Phenergan and Dilaudid. I have spoken with the patient and her mother that this is all that we can provide for pain management and she may need admission for IV fluids if this continues. Patient will be covered with Keflex antibiotic which is sensitive based upon the recent culture results. - Vital Signs Vital signs: Temp Pulse Resp BP Pulse Ox 97.7 F 69 20 133/78 H 96 05/08/18 20:34 05/08/18 20:34 05/08/18 14:10 05/08/18 20:34 05/08/18 20:34 - Laboratory Result Diagrams: 05/08/18 18:14 05/08/18 18:14 Laboratory results interpreted by me: 05/08/18 05/08/18 18:14 18:14 Hgb 15.6 H RDW 14.6 H Sodium 145.8 H Total Protein 8.4 H - EKG Interpretation by Ct EKG shows normal: Sinus rhythm Rate: Normal Additional EKG results interpreted by me: 05/08/18 22:58 EKG as interpreted by tx showed normal sinus rhythm heart rate of 67. There is no gross evidence for acute AL or ischemia noted. There is no significant change from previous EKG reviewed from 05/04/18. Discharge - Discharge Clinical Impression: Narcotic withdrawal Urinary tract infection Qualifiers: Urinary tract infection type: acute cystitis Hematuria presence: without hematuria Qualified Code(s): N30.00 - Acute cystitis without hematuria Vomiting Qualifiers: Vomiting type: unspecified Vomiting Intractability: non-intractable Nausea presence: with nausea Qualified Code(s): R11.2 - Nausea with vomiting, unspecified Back pain Qualifiers: Back pain location: low back pain Chronicity: chronic Back pain laterality: midline Sciatica presence: unspecified whether sciatica present Qualified Code(s ): M54.5 - Low back pain Condition: Stable Disposition: HOME, SELF-CARE Instructions: Diarrhea, Nonspecific ([facility]), Urinary Tract Infection ([facility]), Vomiting ([facility]) Additional Instructions: You have symptoms of narcotic withdrawal with vomiting, diarrhea, worsening pain and insomnia. Follow-up with your regular practitioner for your chronic pain medication needs. Return to the emergency department in case of any fever. Prescriptions: Oxycodone HCl/Acetaminophen [Percocet 5-325 mg Tablet] 1 tab PO Q4HP PRN #20 tab PRN Reason: Promethazine HCl [Phenergan 25 mg Supp.rect] 25 mg [place] Q4HP PRN #12 supp.rect PRN Reason: Ranitidine HCl 150 mg PO BID #60 tablet Referrals: ISELA TAM MD [ACTIVE STAFF] - Follow up as needed
[2018-05-08] MEDS ORDERED: MORPHINE SULFATE 10 MG/ML INJ IM ONE (22:27)
[2018-05-08] MEDS ORDERED: PROMETHAZINE HCL INJ 50 MG/1 ML VIAL IM PRN (22:27)
[2018-05-08] MEDS ORDERED: HYDROMORPHONE HCL INJ/PF 2 MG/ML AMPULE IM ONE (22:30)
[2018-05-08] MEDS ORDERED: CEFTRIAXONE INJ 1000 MG VIAL IM ONE (22:30)
[2018-05-08] MEDS ORDERED: PROMETHAZINE HCL INJ 25 MG/1 ML VIAL IM ONE (22:56)
--- NOTE | 2018-05-08 23:37 | EKG REPORT ---
SEVERITY:- NORMAL ECG - SINUS RHYTHM : Confirmed by: Asiya Latham MD 08-May-2018 23:37:11
[2018-05-08] MEDS ORDERED: LORAZEPAM INJ 2 MG/1 ML VIAL IM ONE (23:45)
[2018-05-09] MEDS ORDERED: HYDROMORPHONE HCL INJ/PF 2 MG/ML AMPULE IM ONE ×2 (01:12→01:14)
[2018-05-09] MEDS ORDERED: PROMETHAZINE HCL INJ 25 MG/1 ML VIAL IM ONE (01:12)
[2018-05-09] MEDS ORDERED: HYDROCODONE/ACETAMINOPHEN 5-325 MG (6 TAB/ER DISP) PO PRN (01:13)
[2018-05-09] MEDS ORDERED: FAMOTIDINE 20 MG TABLET PO ONE (01:16)
[2018-05-09] MEDS ORDERED: LIDOCAINE 2% VISCOUS SOLN 20 ML UDCUP PO ONE (01:17)
[2018-05-09] MEDS ORDERED: MAG HYDROX/AL HYDROX/SIMETH SUSP 30 ML UDCUP PO ONE (01:17)
--- NOTE | 2018-05-09 08:07 | XCELERA REPORT ---
[address] [place] [facility] [address] Lower Extremity Venous Evaluation Procedure: Color flow and duplex imaging of the veins of the left lower extremity as well as the right Common Femoral vein. Right Sided Venous Evaluation The right common femoral vein is fully compressible. Spontaneous and phasic flow is present in the right common femoral vein. Left Sided Venous Evaluation Normal vessel filling wall to wall, compression and augmentation as well as Colour flow down to the infrageniculate veins. Interpretation Summary No duplex evidence of DVT or obstruction in the left lower extremity nor in the right Common Femoral vein. Name: LACEYKRISTA Yareli Age: 57 yrs Gender: Female : 1960 Patient Status: Preadmit Patient Location: ER Study Date: 05/08/2018 06:44 PM Reason For Study: left leg swelling Ordering Physician: LEXIS SHEPHERD Performed By: Nahomy Booker : LEXIS SHEPHERD > [employer] [place]
[2018-05-09 08:27] VITALS: BP 100/58
== END 2018-05-09 08:27 | disposition home or self-care (01) ==
LOC: ER 13:18
DX: F15.93 Other stimulant use, unspecified with withdrawal (principal); N30.00 Acute cystitis without hematuria; R11.2 Nausea with vomiting, unspecified; G89.29 Other chronic pain; M54.5 Low back pain; Z86.718 Personal history of other venous thrombosis and embolism; Z90.49 Acquired absence of other specified parts of digestive tract; Z90.710 Acquired absence of both cervix and uterus
CPT/HCPCS: 93005; 99285; 96372; 36415; 82553; 82550; 85025; 80053; 84484; 93971 ×2; 72110; 93010; A9270 ×6; J1885; J3490 ×2; J1170 ×2; J2060; J2550 ×2; J0696; S0119

== ENCOUNTER 2018-05-18 09:38 | Emergency (ER) | payer MEDICAID, MEDICARE ==
[2018-05-18 09:44] VITALS: BP 135/81
[2018-05-18] MEDS ORDERED: HYDROMORPHONE HCL INJ/PF 2 MG/ML AMPULE IM ONE (10:42)
[2018-05-18] MEDS ORDERED: PROMETHAZINE HCL 25 MG TABLET PO ONE (10:43)
--- NOTE | 2018-05-18 10:46 | ER Document Report ---
ED Medical Screen (RME) - General Chief Complaint: Diarrhea Stated Complaint: VOMITING,SWOLLEN LEG, Time Seen by Provider: 05/18/18 10:42 Mode of Arrival: Ambulatory Information source: Patient Notes: This is a 58-year-old female with chronic back pain who presents to the emergency room with an exacerbation of back pain associated with nausea and vomiting. Patient states when her back pain is at a control, she gets nauseated. She has been unable to tolerate her oral medicines. Patient is visiting from [place] and she is here to visit her dying father. Her stay has been extended because of this issue. She did try and go to her primary care physician to keep her medicines up to date until she is back in [place] (May 27) and was referred to the pain clinic. The pain clinic would not establish with her because she is leaving in a short period of time. So in each instance, she has been trying to establish with both primary care as well as pain clinical laboratory manager because she has been here longer than anticipated and ultimately just referred to the emergency room. She needs medicines that will cover her until she is back in [place]. I have had a long discussion with her. I do not want her to go into withdrawal and I think she has been having real pain associated with her spine issues. Therefore, I will give her a short course of pain medicines to cover her until she get back to [place] in 9 days. She does state she has 2 days of medications left. She denies any fever, chills, abdominal pain or any recent illnesses. She states that her nausea and vomiting usually come after experiencing significant pain. She denies any urinary or fecal retention or incontinence, denies any saddle anesthesia, denies any motor weakness to the lower extremities. TRAVEL OUTSIDE OF THE [place] IN LAST 30 DAYS: No - HPI Onset: Last week Onset/Duration: Gradual Quality of pain: Dull Severity: Moderate Pain Level: 3 Associated Symptoms: Nausea, Vomiting. denies: Chest pain, Shortness of breath Exacerbated by: Movement Relieved by: Remaining still Similar symptoms previously: Yes Recently seen / treated by doctor: Yes - Related Data Smoking: Non-smoker Frequency of alcohol use: None Drug Abuse: None Allergies/Adverse Reactions: fentanyl Allergy (Verified 05/18/18 09:43) morphine Allergy (Verified 05/18/18 09:43) sumatriptan [From Imitrex] Allergy (Verified 05/18/18 09:43) sumatriptan succinate [From Imitrex] Allergy (Verified 05/18/18 09:43) Past Medical History - General Information source: Patient - Social History Chew tobacco use (# tins/day): No Frequency of alcohol use: None Drug Abuse: None Lives with: Family Family history: None - Past Medical History Cardiac Medical History: 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, Hx Pulmonary Embolism Denies: Hx Atrial Fibrillation, Hx Congestive Heart Failure, Hx Coronary Artery Disease, Hx Heart Attack, Hx Hypercholesterolemia, Hx Hypertension, Hx Peripheral Vascular Disease, Hx Heart Murmur Neurological Medical History: Reports: Hx Migraine Renal/ Medical History: Denies: Hx Peritoneal Dialysis Musculoskeltal Medical History: Reports Hx Muscle Spasm Past Surgical History: Reports: Hx Bowel Surgery - Lap lysis of adhesions, Hx Cholecystectomy, Hx Hysterectomy, Hx Orthopedic Surgery - back 2 - Immunizations Immunizations up to date: Yes Hx Diphtheria, Pertussis, Tetanus Vaccination: No Review of Systems - Review of Systems Constitutional: denies: Chills, Fever EENT: No symptoms reported Cardiovascular: denies: Chest pain, Palpitations, Heart racing, Dyspnea Respiratory: denies: Cough, Hemoptysis, Short of breath, Wheezing Gastrointestinal: Nausea, Vomiting. denies: Abdominal pain Female Genitourinary: No symptoms reported Musculoskeletal: See HPI, Back pain Skin: No symptoms reported Hematologic/Lymphatic: No symptoms reported Neurological/Psychological: No symptoms reported Physical Exam - Vital signs Vitals: Temp Pulse Resp BP Pulse Ox 98.1 F 81 18 135/81 H 96 05/18/18 09:43 05/18/18 09:43 05/18/18 09:43 05/18/18 09:43 05/18/18 09:43 Notes: Physical exam: GENERAL: 58-year-old female, alert and oriented 3, no acute distress HEAD: Atraumatic, normocephalic. EYES: Pupils equal round and reactive to light, extraocular movements intact, sclera anicteric, conjunctiva are normal. ENT: TMs normal, nares patent, oropharynx clear without exudates. Moist mucous membranes. NECK: Normal range of motion, supple without obvious mass or JVD. LUNGS: Breath sounds clear to auscultation bilaterally and equal. No wheezes rales or rhonchi. HEART: Regular rate and rhythm without murmurs, rubs or gallops. ABDOMEN: Soft, normoactive bowel sounds. No tenderness to palpation. No guarding, no rebound. No masses appreciated. EXTREMITIES: Normal range of motion, no pitting or edema. No clubbing or cyanosis. NEUROLOGICAL: Cranial nerves II through XII grossly intact. Normal speech, moving all extremities. PSYCH: Normal mood, normal affect. SKIN: Warm, Dry, normal turgor, no rashes or lesions noted. Course - Vital Signs Vital signs: Temp Pulse Resp BP Pulse Ox 98.1 F 81 18 135/81 H 96 05/18/18 09:43 05/18/18 09:43 05/18/18 09:43 05/18/18 09:43 05/18/18 09:43 Doctor's Discharge - Discharge Clinical Impression: Acute exacerbation of chronic low back pain, Vomiting with nausea Condition: Stable Disposition: HOME, SELF-CARE Additional Instructions: As we discussed, covering your medicines for 1 week until you can get back to [place]. Drink plenty of fluids and advance her diet as tolerated. Return to the emergency room for worsening abdominal pain, worsening vomiting or any concerns or getting worse. Prescriptions: Gabapentin 300 mg PO BID #20 capsule Oxycodone HCl/Acetaminophen [Percocet 5-325 mg Tablet] 1 tab PO Q6H PRN #28 tablet PRN Reason: Promethazine HCl [Phenergan 25 mg Tablet] 25 mg PO Q6H PRN #15 tablet PRN Reason:
== END 2018-05-18 11:52 | disposition home or self-care (01) ==
LOC: ER 09:38
DX: M54.5 Low back pain (principal); R19.7 Diarrhea, unspecified; R11.10 Vomiting, unspecified; Z88.6 Allergy status to analgesic agent; Z86.718 Personal history of other venous thrombosis and embolism; Z86.711 Personal history of pulmonary embolism; Z90.49 Acquired absence of other specified parts of digestive tract; Z90.710 Acquired absence of both cervix and uterus
CPT/HCPCS: 99284; 96372; J1170; A9270

== ENCOUNTER 2018-05-22 10:53 | Emergency (ER) | payer MEDICARE ==
[2018-05-22 11:01] VITALS: BP 136/74
[2018-05-22] MEDS ORDERED: NORMAL SALINE 1000 ML 1,000 ML IV ONE (11:11)
--- NOTE | 2018-05-22 11:19 | ER Document Report ---
ED General - General Chief Complaint: Vomiting Stated Complaint: VOMITING Time Seen by Provider: 05/22/18 11:11 TRAVEL OUTSIDE OF THE [place] IN LAST 30 DAYS: No - HPI Patient complains to provider of: Nausea vomiting back pain leg swelling Notes: Patient coming in for the above-stated symptoms. Patient states leg swelling ongoing since she arrived here from [place]. Patient that she is visiting because of her your declining health of her father. Patient has been to the ER multiple previous visits for back pain leg swelling x-rays performed and a venous Doppler form of which has been negative for any acute pathology. Patient apparently has been on pain management in [place] and is been unable to see pain management while she has been here visiting. Patient states last night the pain in her back severe enough that is causing her to vomit. Patient denies any other symptoms fevers chills diarrhea abdominal pain hip pain denies any new trauma denies any other travel Since having the venous Doppler performed. Patient sitting in a wheelchair resting comfortably - Related Data Allergies/Adverse Reactions: fentanyl Allergy (Verified 05/22/18 10:58) morphine Allergy (Verified 05/22/18 10:58) sumatriptan [From Imitrex] Allergy (Verified 05/22/18 10:58) sumatriptan succinate [From Imitrex] Allergy (Verified 05/22/18 10:58) Past Medical History - Social History Smoking Status: Unknown if Ever Smoked Family History: None, CAD, DM, Malignancy, Other - copd - Past Medical History Cardiac Medical History: 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, Hx Pulmonary Embolism Denies: Hx Atrial Fibrillation, Hx Congestive Heart Failure, Hx Coronary Artery Disease, Hx Heart Attack, Hx Hypercholesterolemia, Hx Hypertension, Hx Peripheral Vascular Disease, Hx Heart Murmur Neurological Medical History: Reports: Hx Migraine Renal/ Medical History: Denies: Hx Peritoneal Dialysis Musculoskeletal Medical History: Reports Hx Muscle Spasm Past Surgical History: Reports: Hx Bowel Surgery - Lap lysis of adhesions, Hx Cholecystectomy, Hx Hysterectomy, Hx Orthopedic Surgery - back 2 - Immunizations Immunizations up to date: Yes Hx Diphtheria, Pertussis, Tetanus Vaccination: No Hx Pneumococcal Vaccination: 12/29/10 Review of Systems - Review of Systems Constitutional: No symptoms reported EENT: No symptoms reported Cardiovascular: No symptoms reported Respiratory: No symptoms reported Gastrointestinal: Nausea, Vomiting Genitourinary: No symptoms reported Female Genitourinary: No symptoms reported Musculoskeletal: Back pain Skin: No symptoms reported Hematologic/Lymphatic: No symptoms reported Neurological/Psychological: No symptoms reported -: Yes All other systems reviewed and negative Physical Exam - Vital signs Vitals: Temp Pulse Resp BP Pulse Ox 98.1 F 83 20 136/74 H 99 05/22/18 11:00 05/22/18 11:00 05/22/18 11:00 05/22/18 11:00 05/22/18 11:00 Interpretation: Normal - General General appearance: Appears well, Alert - HEENT Head: Normocephalic, Atraumatic Eyes: Normal Pupils: PERRL - Respiratory Respiratory status: No respiratory distress Chest status: Nontender Breath sounds: Normal Chest palpation: Normal - Cardiovascular Rhythm: Regular Heart sounds: Normal auscultation Murmur: No - Abdominal Inspection: Normal Distension: No distension Bowel sounds: Normal Tenderness: Nontender Organomegaly: No organomegaly - Back Back: Normal, Nontender - Extremities General upper extremity: Normal inspection, Nontender, Normal color, Normal ROM , Normal temperature General lower extremity: Normal inspection, Nontender, Normal color, Normal ROM , Normal temperature, Normal weight bearing. No: Nate's sign - Neurological Neuro grossly intact: Yes Cognition: Normal Orientation: AAOx4 David Coma Scale Eye Opening: Spontaneous David Coma Scale Verbal: Oriented [place] Coma Scale Motor: Obeys Commands David Coma Scale Total: 15 Speech: Normal Motor strength normal: LUE, RUE, LLE, RLE Sensory: Normal - Psychological Associated symptoms: Normal affect, Normal mood - Skin Skin Temperature: Warm Skin Moisture: Dry Skin Color: Normal Course - Re-evaluation Re-evalutation: 05/22/18 11:16 Upon evaluating patient did explain to the patient because of her recent visits and narcotic prescriptions received that we would not give her any narcotics here for her back pain but I would gladly give the patient Tylenol Motrin ketorolac injections also will check out blood work establish an IV to give her normal saline and also give her anti-medics. Patient states understanding. Patient ambulated to the bathroom to provide urine sample and was notified by the nursing staff approximately less than 1 minute before ablating to the bathroom the patient received an emergency phone call and that she would need to go see her father. Patient left the ER before any other further evaluation could be performed. Patient did not wait around for any of her discharge papers. Review of the patient's narcotic database shows multiple narcotic prescriptions 04/14/2018 receiving oxycodone 120 tablets. Patient receiving on May 09 oxycodone 20 tablets receiving on May 13 oxycodone 28 tablets. Receiving on May 18 oxycodone 28 tablets. - Vital Signs Vital signs: Temp Pulse Resp BP Pulse Ox 98.1 F 83 20 136/74 H 99 05/22/18 11:00 05/22/18 11:00 05/22/18 11:00 05/22/18 11:00 05/22/18 11:00 Discharge - Discharge Clinical Impression: Nausea & vomiting Qualifiers: Vomiting type: unspecified Vomiting Intractability: unspecified Qualified Code( s): R11.2 - Nausea with vomiting, unspecified Back pain, chronic Qualifiers: Back pain location: low back pain Back pain laterality: unspecified Sciatica presence: without sciatica Qualified Code(s): M54.5 - Low back pain; G89.29 - Other chronic pain; G89.29 - Other chronic pain Condition: Good Disposition: HOME, SELF-CARE Instructions: Vomiting ([facility]), Chronic Back Pain ([facility]), Low Back Pain ([facility]) Additional Instructions: Continue your previously prescribed medications. Return if symptoms worsen
== END 2018-05-22 11:18 | disposition home or self-care (01) ==
LOC: ER 10:53
DX: G89.29 Other chronic pain (principal); M54.5 Low back pain; M79.89 Other specified soft tissue disorders; R11.2 Nausea with vomiting, unspecified; Z88.5 Allergy status to narcotic agent; Z88.6 Allergy status to analgesic agent; Z86.718 Personal history of other venous thrombosis and embolism; Z86.711 Personal history of pulmonary embolism
CPT/HCPCS: 36415; 99283

== ENCOUNTER 2018-08-02 22:42 | Emergency (ER) | payer MEDICARE, MEDICAID ==
[2018-08-02] MEDS ORDERED: ASPIRIN 81 MG TABLET, CHEWABLE PO ONE (23:04)
[2018-08-02] MEDS ORDERED: LIDOCAINE 2% VISCOUS SOLN 20 ML UDCUP PO ONE (23:05)
[2018-08-02] MEDS ORDERED: METOCLOPRAMIDE HCL ORAL SOLN 10 MG/10 ML UDCUP PO ONE (23:05)
[2018-08-02] MEDS ORDERED: MAG HYDROX/AL HYDROX/SIMETH SUSP 30 ML UDCUP PO ONE (23:05)
[2018-08-02] MEDS ORDERED: HYDROMORPHONE HCL INJ/PF 2 MG/ML AMPULE IV ONE (23:05)
[2018-08-02] MEDS ORDERED: ONDANSETRON HCL INJ/PF 4 MG/2 ML SDV IV ONE (23:06)
--- NOTE | 2018-08-02 23:11 | ER Document Report ---
ED General - General Chief Complaint: Chest Pain Stated Complaint: CHEST PAIN Time Seen by Provider: 08/02/18 22:53 Mode of Arrival: Ambulatory Information source: Patient, [facility] Records Notes: 58-year-old female with chronic back pain presents with complaint of right sided neck, shoulder and upper arm pain that started 3 days prior to arrival. She denies any injury. She states that she is having a throbbing pain from her neck radiating down to her elbow. She is having difficulty lifting her arm. Patient also complaining of nausea and vomiting this morning upon awakening. She states that she has had approximately 6 episodes of non-bilious nonbloody emesis. She states that at 1 PM 10 hours prior to arrival she began experiencing epigastric chest pressure that she describes as constant and without radiation. She denies any associated shortness of breath or diaphoresis , lightheadedness, fever, chills, diarrhea, dysuria. TRAVEL OUTSIDE OF THE [place] IN LAST 30 DAYS: No - HPI Onset: Other Onset/Duration: Gradual, Persistent Quality of pain: Achy, Pressure Severity: Moderate Associated symptoms: Chest pain, Headache, Nausea, Vomiting, Other - Right upper extremity pain. denies: Nonproductive cough, Productive cough, Diarrhea, Hurts to breath, Leg swelling, Shortness of breath Exacerbated by: Movement - Right shoulder pain worse with movement Relieved by: Denies Similar symptoms previously: No Recently seen / treated by doctor: No - Related Data Allergies/Adverse Reactions: fentanyl Allergy (Verified 05/22/18 10:58) morphine Allergy (Verified 05/22/18 10:58) sumatriptan [From Imitrex] Allergy (Verified 05/22/18 10:58) sumatriptan succinate [From Imitrex] Allergy (Verified 05/22/18 10:58) Past Medical History - General Information source: Patient, [facility] Records - Social History Smoking Status: Never Smoker Frequency of alcohol use: None Drug Abuse: None Lives with: Family Family History: None, CAD, DM, Malignancy, Other - copd - Past Medical History Cardiac Medical History: 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, Hx Pulmonary Embolism Denies: Hx Atrial Fibrillation, Hx Congestive Heart Failure, Hx Coronary Artery Disease, Hx Heart Attack, Hx Hypercholesterolemia, Hx Hypertension, Hx Peripheral Vascular Disease, Hx Heart Murmur Neurological Medical History: Reports: Hx Migraine Renal/ Medical History: Denies: Hx Peritoneal Dialysis Musculoskeletal Medical History: Reports Hx Muscle Spasm Past Surgical History: Reports: Hx Bowel Surgery - Lap lysis of adhesions, Hx Cholecystectomy, Hx Hysterectomy, Hx Orthopedic Surgery - back 2 - Immunizations Immunizations up to date: Yes Hx Diphtheria, Pertussis, Tetanus Vaccination: No Hx Pneumococcal Vaccination: 12/29/10 Review of Systems - Review of Systems Notes: REVIEW OF SYSTEMS: CONSTITUTIONAL : Denies fever, chills, or sweats. Denies recent illness. Denies weight loss, recent hospitalizations. EENT: Denies visual changes, eye pain. Denies sore throat, oral lesions, difficulty swallowing. CARDIOVASCULAR: Denies palpitations. Denies lower extremity edema. RESPIRATORY: Denies cough. Denies shortness of breath, wheezing. GASTROINTESTINAL: Denies abdominal distention. Denies diarrhea. Denies blood in vomitus, stools, or per rectum. Denies black, tarry stools. Denies constipation. GENITOURINARY: Denies difficulty urinating, painful urination, frequency, blood in urine, or vaginal discharge. MUSCULOSKELETAL: Denies back or neck pain or stiffness. Denies joint pain or swelling. SKIN: Denies rash, lesions or sores. HEMATOLOGIC : Denies easy bruising or bleeding. LYMPHATIC: Denies swollen glands. NEUROLOGICAL: Denies confusion or altered mental status. Denies loss of consciousness. Denies dizziness or lightheadedness. . Denies weakness or paralysis. Denies problems difficulty with ambulation, slurred speech. Denies sensory loss, numbness, or tingling. Denies seizures. PSYCHIATRIC: Denies anxiety or stress. Denies depression, suicidal ideation, or homicidal ideation. Denies visual or auditory hallucinations. Physical Exam - Vital signs Vitals: Temp Pulse Resp BP Pulse Ox 97.9 F 70 18 141/58 H 96 08/02/18 22:47 08/02/18 22:47 08/02/18 22:47 08/02/18 22:47 08/02/18 22:47 Interpretation: Hypertensive. No: Febrile - Notes Notes: PHYSICAL EXAMINATION: GENERAL: Well-appearing, well-nourished and in no acute distress. HEAD: Atraumatic, normocephalic. EYES: Pupils equal round and reactive to light, extraocular movements intact, conjunctiva are normal. ENT: Nares patent, oropharynx clear without exudates. Moist mucous membranes. NECK: Normal range of motion, supple without lymphadenopathy LUNGS: Breath sounds clear to auscultation bilaterally and equal. No wheezes rales or rhonchi. HEART: Regular rate and rhythm without murmurs ABDOMEN: Epigastric abdominal tenderness with palpation no guarding, no rebound. No masses appreciated. Female : deferred Musculoskeletal: Right shoulder has limited range of motion. Patient unable to lift her arm past 90 degrees. No obvious deformity. Reproducible pain along the right paraspinal musculature of the cervical spine and trapezius. No neuro deficits. NEUROLOGICAL: Cranial nerves grossly intact. Normal speech, normal gait. Normal sensory, motor exams PSYCH: Normal mood, normal affect. SKIN: Warm, Dry, normal turgor, no rashes or lesions noted. Course - Re-evaluation Re-evalutation: Laboratory 08/02/18 08/02/18 08/02/18 23:38 23:38 23:38 WBC 9.9 RBC 4.78 Hgb 14.8 Hct 44.9 MCV 94 MCH 31.0 MCHC 33.0 RDW 14.8 H Plt Count 292 Seg Neutrophils % 53.0 Lymphocytes % 38.1 Monocytes % 5.2 Eosinophils % 3.2 Basophils % 0.5 Absolute Neutrophils 5.3 Absolute Lymphocytes 3.8 Absolute Monocytes 0.5 Absolute Eosinophils 0.3 Absolute Basophils 0.1 Sodium 141.5 Potassium 4.7 Chloride 101 Carbon Dioxide 27 Anion Gap 14 BUN 20 Creatinine 0.88 Est GFR ( Amer) > 60 Est GFR (Non-Af Amer) > 60 Glucose 109 Calcium 9.4 Total Bilirubin 0.4 Direct Bilirubin 0.2 Neonat Total Bilirubin Not Reportable Neonat Direct Bilirubin Not Reportable Neonat Indirect Bili Not Reportable AST 33 ALT 19 Alkaline Phosphatase 157 H Creatine Kinase 102 CK-MB (CK-2) 1.79 Troponin I < 0.012 Total Protein 8.1 Albumin 4.5 Lipase 66.4 58-year-old female presented with multiple complaints including right arm pain that started 3 days ago that is worse with movement. Epigastric abdominal pain that started at 1 PM today and has been constant since that time. Patient also reports that she has had nausea and vomiting since this morning. Upon arrival vital signs were reviewed and within normal limits. Patient is afebrile, normotensive. She does not appear toxic or dehydrated. Previous medical records and nursing notes reviewed. Patient was placed on research management associate and EKG was obtained which showed the patient to be in normal sinus rhythm, without ST elevation. 08/03/18 01:09 EDT Patient reevaluated after receiving Dilaudid, Zofran, GI cocktail. She states initially her pain and nausea subsided but it is slowly returning. Initial set of labs are within normal limits. Patient has unremarkable lab work except for a mildly elevated alk phos. CBC is without leukocytosis or anemia. CMP shows no significant electrolyte abnormalities. Initial troponin is within normal limits. Lipase also within normal limits. We will try Reglan and Benadryl for her nausea. Delta troponin pending. troponin negative. 08/03/18 01:11 EDT 08/03/18 02:18 08/03/18 02:36 Patient reports resolution of her arm pain, nausea, vomiting and epigastric abdominal pain. She will be discharged home with Zofran and Pepcid. Advised to take Tylenol for her right shoulder pain. Patient was evaluated and treated as appropriate for the patient's presenting symptoms and complaint, with consideration of any critical or life threatening conditions that may be associated with their obtained history and exam as noted above. All results were discussed with patient. Patient provided the opportunity to ask questions, and express concerns. Patient was educated on treatments based on their presumed diagnosis as noted above. At this time we will discharge the patient with return precautions and follow-up recommendations. Verbal discharge instructions given a the bedside. Medication warnings reviewed. Patient is in agreement with this plan and has verbalized understanding of return precautions. After careful consideration I feel that that patient can be safely discharged from the emergency department, they were advised to followup with a primary care physician in 2-3 days. HEART Score: History-0 ECG-0 Age-1 Risk Factors-1 Troponin-0 Total: 2 If HEART score is = 3 AND both troponin measurments are normal, the 30 day risk of a major adverse cardiac event (all-cause mortality, myocardia infarction or need for coronary revascularization) is < 1% (Sensitivity 100%, NPV 100%). Chest pain in a patient without evidence of cardiac or other serious etiology on workup today. I discussed with patient that, based on their age, risk factors and emergency department testing today, the likelihood that their symptoms are related to a heart attack is very low (estimated risk of heart attack or over the next 30 days of less than 1%). The patient demonstrates decision making capacity and has verbalized an understanding of these risks to me. Based on this, the patient has chosen to follow-up as an outpatient. Usual chest pain return precautions reviewed. The patient states understanding and agreement with this plan. Dictation on this chart was performed using voice recognition software and may result in unintended grammatical, spelling, syntax or errors. - Vital Signs Vital signs: Temp Pulse Resp BP Pulse Ox 97.9 F 70 16 143/78 H 97 08/02/18 22:47 08/02/18 22:47 08/02/18 23:01 08/02/18 23:01 08/02/18 23:04 - Laboratory Result Diagrams: 08/02/18 23:38 08/02/18 23:38 Laboratory results interpreted by me: 08/02/18 08/02/18 23:38 23:38 RDW 14.8 H Alkaline Phosphatase 157 H - Diagnostic Test Radiology reviewed: Image reviewed, Reports reviewed - EKG Interpretation by Me EKG shows normal: Sinus rhythm Rate: Normal Rhythm: NSR When compared to previous EKG there are: No significant change Discharge - Discharge Clinical Impression: Epigastric abdominal pain, Muscle spasms of neck, Right arm pain, DJD of AC ( acromioclavicular) joint Nausea & vomiting Qualifiers: Vomiting type: unspecified Vomiting Intractability: non-intractable Qualified Code(s): R11.2 - Nausea with vomiting, unspecified Chest pain Qualifiers: Chest pain type: unspecified Qualified Code(s): R07.9 - Chest pain, unspecified Condition: Good Disposition: HOME, SELF-CARE Instructions: Abdominal Pain ([facility]), Antinausea Medication ([facility]), Evaluation of Upper Abdominal Pain ([facility]), Intravenous (IV) Fluids ([facility]), Neck Injury ( Cervical Strain) ([facility]), Viral Syndrome ([facility]), Vomiting ([facility]) Additional Instructions: You were seen today for chest pain. The exact cause of your pain is unclear. However, based on your cardiac enzyme testing, chest x-ray, and EKG it does not appear that it is from an immediately life-threatening cause at this time. Although your testing here is normal is critical that you follow-up with your primary care physician for continued evaluation of this chest pain and possible stress testing. I recommended you see your physician within the next 24-48 hours to be evaluated for consideration of a stress test. Please return to emergency department immediately if you have worsening of your chest pain, shortness of breath, vomiting, become unable to exert yourself due to pain or difficulty breathing, you pass out, or have any pain that radiates into your arms, jaw, or back. Please also return if you have any additional symptoms that are concerning to you. You have been seen in the Emergency Department (ED) for abdominal pain. Your evaluation did not identify a clear cause of your symptoms but was generally reassuring. Please follow up with your doctor as soon as possible regarding today's emergent visit and the symptoms that are bothering you. Return to the ED if your abdominal pain worsens or fails to improve, you develop bloody vomiting, bloody diarrhea, you are unable to tolerate fluids due to vomiting, fever greater than 101, or other symptoms that concern you. Prescriptions: Famotidine [Pepcid 40 mg Tablet] 40 mg PO DAILY #7 tablet Ondansetron [Zofran Odt 4 mg Tablet] 1 - 2 tab PO Q4H PRN #15 tab.rapdis PRN Reason: For Nausea/Vomiting Forms: Elevated Blood Pressure
--- NOTE | 2018-08-02 23:28 | RADIOLOGY REPORT (SQ) ---
EXAM DESCRIPTION: XR CHEST 2 VIEWS COMPLETED DATE/TME: 08/02/2018 23:05 CLINICAL HISTORY: 58 years, Female, chest pain Compared to 05/04/2018. FINDINGS: Heart is borderline enlarged. Aorta is within normal limits. No consolidations or pleural effusions. No pulmonary edema or pneumothorax. IMPRESSION: No acute disease.
--- NOTE | 2018-08-02 23:36 | RADIOLOGY REPORT (SQ) ---
EXAM DESCRIPTION: XR SHOULDER 2 OR MORE VIEWS COMPLETED DATE/TME: 08/02/2018 23:05 CLINICAL HISTORY: 58 years, Female, pain Findings: Bony alignment is anatomic. No fracture or dislocation. Mild acromioclavicular degenerative changes. Soft tissues are unremarkable. IMPRESSION: No fracture.
[2018-08-02 23:53] LABS: ABSOLUTE BASOPHILS # (AUTO) 0.1 10^3/uL (0.0-0.2); ABSOLUTE EOSINOPHILS # (AUTO) 0.3 10^3/uL (0.0-0.6); ABSOLUTE LYMPHOCYTES (AUTO) 3.8 10^3/uL (0.5-4.7); ABSOLUTE MONOCYTES (AUTO) 0.5 10^3/uL (0.1-1.4); ABSOLUTE NEUT (AUTO) 5.3 10^3/uL (1.7-8.2); BASOPHILS % (AUTO) 0.5 % (0-2); EOSINOPHILS % (AUTO) 3.2 % (0-6); HEMATOCRIT 44.9 % (36.0-47.0); HEMOGLOBIN 14.8 g/dL (12.0-15.5); LYMPHOCYTES % (AUTO) 38.1 % (13-45); MEAN CORPUSCULAR VOLUME 94 fl (80-97); MONOCYTES % (AUTO) 5.2 % (3-13); PLATELET COUNT 292 10^3/uL (150-450); RED BLOOD COUNT 4.78 10^6/uL (3.72-5.28); RED CELL DISTRIBUTION WIDTH 14.8 % (11.5-14.0); TOTAL CELLS COUNTED % (AUTO) 100 %; WHITE BLOOD COUNT 9.9 10^3/uL (4.0-10.5)
[2018-08-03 00:05] LABS: ALANINE AMINOTRANSFERASE 19 U/L (9-52); ALBUMIN 4.5 g/dL (3.5-5.0); ALKALINE PHOSPHATASE 157 U/L (38-126); ANION GAP 14 (5-19); ASPARTATE AMINO TRANSFERASE 33 U/L (14-36); BILIRUBIN,DIRECT 0.2 mg/dL (0.0-0.4); BILIRUBIN,TOTAL 0.4 mg/dL (0.2-1.3); BLOOD UREA NITROGEN 20 mg/dL (7-20); CALCIUM 9.4 mg/dL (8.4-10.2); CARBON DIOXIDE 27 mmol/L (22-30); CHLORIDE 101 mmol/L (98-107); CREATINE KINASE 102 U/L (30-135); GLUCOSE 109 mg/dL (75-110); LIPASE 66.4 U/L (23-300); POTASSIUM 4.7 mmol/L (3.6-5.0); SODIUM 141.5 mmol/L (137-145); TOTAL PROTEIN 8.1 g/dL (6.3-8.2)
[2018-08-03 00:20] LABS: CREATINE KINASE MB 1.79 ng/mL (<4.55); TROPONIN I < 0.012 ng/mL
[2018-08-03] MEDS ORDERED: METOCLOPRAMIDE HCL INJ/PF 10 MG/2 ML SDV IV ONE (00:46)
[2018-08-03] MEDS ORDERED: DIPHENHYDRAMINE HCL 50 MG/ML VIAL IV ONE (00:51)
[2018-08-03] MEDS ORDERED: HYDROMORPHONE HCL INJ/PF 2 MG/ML AMPULE IV ONE (01:09)
[2018-08-03 07:57] VITALS: BP 134/60
--- NOTE | 2018-08-03 09:39 | EKG REPORT ---
SEVERITY:- NORMAL ECG - SINUS RHYTHM : Confirmed by: Asiya Latham MD 03-Aug-2018 09:38:53
== END 2018-08-03 02:54 | disposition home or self-care (01) ==
LOC: ER 22:42
DX: M19.019 Primary osteoarthritis, unspecified shoulder (principal); M79.621 Pain in right upper arm; M62.838 Other muscle spasm; R11.2 Nausea with vomiting, unspecified; R07.89 Other chest pain; R10.13 Epigastric pain; R74.8 Abnormal levels of other serum enzymes; M54.2 Cervicalgia; M25.511 Pain in right shoulder; R51 Headache; Z88.6 Allergy status to analgesic agent; Z86.711 Personal history of pulmonary embolism; Z86.718 Personal history of other venous thrombosis and embolism
CPT/HCPCS: 93005; 96376; 99285; 96374; 96375; 36415; 82553; 82550; 83690; 85025; 80053; 84484; 71046; 73030; 93010; A9270 ×2; J1200; J3490; J2765; J1170 ×2; J2405

== ENCOUNTER 2019-01-31 22:42 | Emergency (ER) | payer MEDICARE, MEDICAID ==
[2019-02-01] MEDS ORDERED: NORMAL SALINE 1000 ML 1,000 ML IV ONE (01:02)
[2019-02-01] MEDS ORDERED: DIPHENHYDRAMINE HCL 50 MG/ML VIAL IV ONE (01:03)
[2019-02-01] MEDS ORDERED: HYDROMORPHONE HCL INJ/PF 2 MG/ML AMPULE IV ONE ×2 (01:03→02:05)
[2019-02-01] MEDS ORDERED: ONDANSETRON HCL INJ/PF 4 MG/2 ML SDV IV ONE (01:03)
[2019-02-01] MEDS ORDERED: METOCLOPRAMIDE HCL INJ/PF 10 MG/2 ML SDV IV ONE (01:03)
--- NOTE | 2019-02-01 01:05 | ER Document Report ---
ED General - General Chief Complaint: Leg Pain Stated Complaint: LEG PAIN Time Seen by Provider: 02/01/19 00:36 Mode of Arrival: Ambulatory Information source: Patient Notes: 58-year-old female presents to the emergency room with nausea and vomiting. Patient does have a history of chronic back pain as well as chronic left knee pain (she is going to be scheduled for surgery in the next month or so). She states that she started getting an exacerbation of her back pain and then started having nausea and vomiting. TRAVEL OUTSIDE OF THE [place] IN LAST 30 DAYS: No - HPI Onset: Just prior to arrival Onset/Duration: Gradual Quality of pain: Dull Severity: Moderate Pain Level: 3 Associated symptoms: Nausea, Vomiting. denies: Chest pain, Fever, Shortness of breath Exacerbated by: Movement Relieved by: Remaining still Similar symptoms previously: Yes Recently seen / treated by doctor: Yes - Related Data Allergies/Adverse Reactions: fentanyl Allergy (Verified 01/31/19 23:11) morphine Allergy (Verified 01/31/19 23:11) sumatriptan [From Imitrex] Allergy (Verified 01/31/19 23:11) sumatriptan succinate [From Imitrex] Allergy (Verified 01/31/19 23:11) Past Medical History - General Information source: Patient - Social History Smoking Status: Unknown if Ever Smoked Cigarette use (# per day): No Chew tobacco use (# tins/day): No Frequency of alcohol use: None Drug Abuse: None Lives with: Family Family History: None, CAD, DM, Malignancy, Other - copd Patient has suicidal ideation: No Patient has homicidal ideation: No - Past Medical History Cardiac Medical History: 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, Hx Pulmonary Embolism Denies: Hx Atrial Fibrillation, Hx Congestive Heart Failure, Hx Coronary Artery Disease, Hx Heart Attack, Hx Hypercholesterolemia, Hx Hypertension, Hx Peripheral Vascular Disease, Hx Heart Murmur Neurological Medical History: Reports: Hx Migraine Renal/ Medical History: Denies: Hx Peritoneal Dialysis Musculoskeletal Medical History: Reports Hx Muscle Spasm Past Surgical History: Reports: Hx Bowel Surgery - Lap lysis of adhesions, Hx Cholecystectomy, Hx Hysterectomy, Hx Orthopedic Surgery - back 2 - Immunizations Immunizations up to date: Yes Hx Diphtheria, Pertussis, Tetanus Vaccination: No Hx Pneumococcal Vaccination: 12/29/10 Review of Systems - Review of Systems Constitutional: denies: Chills, Fever EENT: No symptoms reported Cardiovascular: No symptoms reported Respiratory: No symptoms reported Gastrointestinal: See HPI Genitourinary: No symptoms reported Female Genitourinary: No symptoms reported Musculoskeletal: See HPI Skin: No symptoms reported Hematologic/Lymphatic: No symptoms reported Neurological/Psychological: No symptoms reported Physical Exam - Vital signs Vitals: Temp Pulse BP Pulse Ox 98 F 72 120/71 95 01/31/19 23:10 01/31/19 23:10 01/31/19 23:10 01/31/19 23:10 Notes: Physical exam: GENERAL: Is alert and oriented x3, actively vomiting HEAD: Atraumatic, normocephalic. EYES: Pupils equal round and reactive to light, extraocular movements intact, sclera anicteric, conjunctiva are normal. ENT: TMs normal, nares patent, oropharynx clear without exudates. Moist mucous membranes. NECK: Normal range of motion, supple without obvious mass or JVD. LUNGS: Breath sounds clear to auscultation bilaterally and equal. No wheezes rales or rhonchi. HEART: Regular rate and rhythm without murmurs, rubs or gallops. ABDOMEN: Soft, normoactive bowel sounds. No tenderness to palpation. No guarding, no rebound. No masses appreciated. EXTREMITIES: Normal range of motion, no pitting or edema. No clubbing or cyanosis. NEUROLOGICAL: Cranial nerves II through XII grossly intact. Normal speech, moving all extremities. PSYCH: Normal mood, normal affect. SKIN: Warm, Dry, normal turgor, no rashes or lesions noted. Course - Vital Signs Vital signs: Temp Pulse Resp BP Pulse Ox 98 F 85 23 H 115/52 L 97 01/31/19 23:10 02/01/19 02:03 02/01/19 02:03 02/01/19 02:03 02/01/19 02:03 - Laboratory Result Diagrams: 02/01/19 00:54 02/01/19 00:54 Laboratory results interpreted by me: 02/01/19 02/01/19 02/01/19 00:54 00:54 00:54 RDW 15.1 H Seg Neutrophils % 35.2 L Lymphocytes % 53.3 H Chloride 110 H Carbon Dioxide 21 L Glucose 113 H Alkaline Phosphatase 137 H Urine Ketones TRACE H Urine Blood SMALL H Ur Leukocyte Esterase MODERATE H Discharge - Discharge Clinical Impression: Vomiting with nausea, Acute exacerbation of back pain Condition: Stable Disposition: HOME, SELF-CARE Additional Instructions: As we discussed, your labs look good today. We did send a urine culture which will take 2 days. Drink plenty of fluids: Start slowly and advance diet as tolerated. Take the nausea medicine as needed. Take pain medicine as needed. Follow-up with your primary care doctor when back home. Return to the emergency room for any concerns of worsening nausea, not tolerating fluids or any concerns or getting worse. The pain medicine you're taking prescribed as a narcotic. There are several important things you should know about this medicine: 1. This medicine contains Tylenol: It is important that you do not take Tylenol (or acetaminophen) while on this medicine. Tylenol is metabolized by the liver and taking too much Tylenol (acetaminophen) can lay to liver damage and even liver failure. 2. Taking narcotics for too long can lead to physical and mental dependence. Take this medicine only if really needed and in the lowest quantity to achieve pain relief. 3. Do not drink alcohol while on this medicine. Alcohol interacts with narcotics and the combination can be dangerous. 4. Do not drive or operate machinery while on this medicine. 5. Narcotics do cause constipation, so drink plenty of fluids and daily stool softeners. Prescriptions: Oxycodone HCl/Acetaminophen [Percocet 5-325 mg Tablet] 1 - 2 tab PO ASDIR PRN #15 tablet PRN Reason: Promethazine HCl [Phenergan 25 mg Tablet] 25 mg PO Q6H PRN #15 tablet PRN Reason:
[2019-02-01 01:09] LABS: ABSOLUTE BASOPHILS # (AUTO) 0.1 10^3/uL (0.0-0.2); ABSOLUTE EOSINOPHILS # (AUTO) 0.2 10^3/uL (0.0-0.6); ABSOLUTE LYMPHOCYTES (AUTO) 4.6 10^3/uL (0.5-4.7); ABSOLUTE MONOCYTES (AUTO) 0.7 10^3/uL (0.1-1.4); BASOPHILS % (AUTO) 0.6 % (0-2); EOSINOPHILS % (AUTO) 2.8 % (0-6); HEMOGLOBIN 14.7 g/dL (12.0-15.5); LYMPHOCYTES % (AUTO) 53.3 % (13-45); MEAN CORPUSCULAR HGB CONC 32.7 g/dL (32.0-36.0); MEAN CORPUSCULAR VOLUME 95 fl (80-97); MONOCYTES % (AUTO) 8.1 % (3-13); PLATELET COUNT 248 10^3/uL (150-450); RED BLOOD COUNT 4.75 10^6/uL (3.72-5.28); RED CELL DISTRIBUTION WIDTH 15.1 % (11.5-14.0); SEGMENTED NEUTROPHILS % (AUTO) 35.2 % (42-78); TOTAL CELLS COUNTED % (AUTO) 100 %; WHITE BLOOD COUNT 8.5 10^3/uL (4.0-10.5)
[2019-02-01 01:17] LABS: APPEARANCE,URINE SLIGHTLY-CLOUDY; BILIRUBIN,URINE NEGATIVE (NEGATIVE); COLOR,URINE YELLOW; GLUCOSE, URINE NEGATIVE (NEGATIVE); KETONES,URINE TRACE mg/dL (NEGATIVE); LEUKOCYTE ESTERASE,URINE MODERATE (NEGATIVE); NITRITE,URINE NEGATIVE (NEGATIVE); PROTEIN,URINE NEGATIVE (NEGATIVE); UROBILINOGEN,URINE NEGATIVE mg/dL (<2.0)
[2019-02-01 01:43] LABS: ALANINE AMINOTRANSFERASE 27 U/L (9-52); ALBUMIN 4.1 g/dL (3.5-5.0); ALKALINE PHOSPHATASE 137 U/L (38-126); ANION GAP 10 (5-19); ASPARTATE AMINO TRANSFERASE 30 U/L (14-36); BILIRUBIN,DIRECT 0.4 mg/dL (0.0-0.4); BILIRUBIN,TOTAL 0.4 mg/dL (0.2-1.3); BLOOD UREA NITROGEN 11 mg/dL (7-20); CALCIUM 9.1 mg/dL (8.4-10.2); CARBON DIOXIDE 21 mmol/L (22-30); CHLORIDE 110 mmol/L (98-107); GLUCOSE 113 mg/dL (75-110); POTASSIUM 4.4 mmol/L (3.6-5.0); TOTAL PROTEIN 7.6 g/dL (6.3-8.2)
[2019-02-01] MEDS ORDERED: ONDANSETRON ODT 4 MG TAB (6 TAB/ER DISP) PO PRN (02:42)
[2019-02-01] MEDS ORDERED: PROMETHAZINE HCL 25 MG TABLET PO ONE (02:42)
[2019-02-01 03:07] VITALS: BP 110/54
== END 2019-02-01 03:06 | disposition home or self-care (01) ==
LOC: ER 22:42
DX: R11.2 Nausea with vomiting, unspecified (principal); M54.9 Dorsalgia, unspecified; Z88.5 Allergy status to narcotic agent; Z88.6 Allergy status to analgesic agent
CPT/HCPCS: 96376; 99283; 96361; 96374; 96375; 36415; 85025; 80053; 81001; J1200; J2765; J1170; A9270 ×2; J2405; J7030

== ENCOUNTER 2019-02-05 17:51 | Emergency (ER) | payer MEDICARE, MEDICAID ==
--- NOTE | 2019-02-05 18:20 | RADIOLOGY REPORT (SQ) ---
EXAM DESCRIPTION: CHEST 2 VIEWS COMPLETED DATE/TIME: 02/05/2019 6:09 pm REASON FOR STUDY: chest pain COMPARISON: 08/02/2018 TECHNIQUE: Frontal and lateral radiographic views of the chest acquired. NUMBER OF VIEWS: Two view. LIMITATIONS: None. FINDINGS: LUNGS AND PLEURA: No pneumothorax. No consolidation or pleural effusion. MEDIASTINUM AND HILAR STRUCTURES: Stable. HEART AND VASCULAR STRUCTURES: Stable. BONES: No acute findings. HARDWARE: None in the chest. OTHER: No other significant finding. IMPRESSION: NO ACUTE FINDINGS. TECHNICAL DOCUMENTATION: JOB ID: [id number] [id number] 2010 [employer]- All Rights Reserved Reading location - IP/workstation name: [email or web address]
[2019-02-05] MEDS ORDERED: ONDANSETRON HCL INJ/PF 4 MG/2 ML SDV IV ONE (19:39)
[2019-02-05] MEDS ORDERED: ACETAMINOPHEN 325 MG TABLET PO ONE (19:39)
--- NOTE | 2019-02-05 19:42 | EKG REPORT ---
SEVERITY:- NORMAL ECG - SINUS RHYTHM : Confirmed by: Asiya Latham MD 05-Feb-2019 19:42:02
--- NOTE | 2019-02-05 19:42 | ER Document Report ---
Addendum entered and electronically signed by ERNESTINE SCHMIDT NP 02/05/19 20:33: Course - Re-evaluation Re-evalutation: 02/05/19 20:32 Pulmonary Doppler study negative for DVT per Doppler tech - Vital Signs Vital signs: Temp Pulse Resp BP Pulse Ox 98.7 F 81 16 135/63 H 96 02/05/19 18:13 02/05/19 18:13 02/05/19 18:13 02/05/19 18:13 02/05/19 18:13 Original Note: ED Medical Screen (RME) - General Chief Complaint: Chest Pain Stated Complaint: LEG SWELLING Time Seen by Provider: 02/05/19 19:34 Mode of Arrival: Ambulatory Information source: Patient TRAVEL OUTSIDE OF THE [place] IN LAST 30 DAYS: No - HPI Patient complains to provider of: LEG PAIN/SWELLING, CP, N/V Notes: 02/05/19 19:40 Patient here with complaints of swelling to the bilateral legs left worse than right. Started several days ago. Is also having some chest heaviness and some nausea vomiting. Patient has a prior history of 2 previous occasions where she has developed DVT in her left lower extremity. She denies any recent long trips or surgeries, no cancer, no history of PE. Exam Nontoxic, no distress. Lungs clear and equal throughout. Bilateral lower extremity swelling left greater than right. Heart sounds normal. Pulses normal. Normal cap refill. Compartments soft. Plan CBC, CMP, CPK, CK-MB, PT/INR, EKG, chest x-ray which was negative. To the patient's complaints of left lower extremity swelling and prior DVT, I have ordered a venous Doppler. To the fact that she has had prior DVT twice and is here with left leg swelling is complaining of chest pain, I have ordered a CTA of the chest. An initial examination was made on the patient as part of the triage process, and it was determined a more comprehensive evaluation was necessary. Initial labs were ordered and patient was transferred to another provider in the ED who assumed care and finished evaluation and plan. - Related Data Allergies/Adverse Reactions: fentanyl Allergy (Verified 01/31/19 23:11) morphine Allergy (Verified 01/31/19 23:11) sumatriptan [From Imitrex] Allergy (Verified 01/31/19 23:11) sumatriptan succinate [From Imitrex] Allergy (Verified 01/31/19 23:11) Past Medical History - Social History Family history: None - Past Medical History Cardiac Medical History: 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, Hx Pulmonary Embolism Denies: Hx Atrial Fibrillation, Hx Congestive Heart Failure, Hx Coronary Artery Disease, Hx Heart Attack, Hx Hypercholesterolemia, Hx Hypertension, Hx Peripheral Vascular Disease, Hx Heart Murmur Neurological Medical History: Reports: Hx Migraine Renal/ Medical History: Denies: Hx Peritoneal Dialysis Musculoskeltal Medical History: Reports Hx Muscle Spasm Past Surgical History: Reports: Hx Bowel Surgery - Lap lysis of adhesions, Hx Cholecystectomy, Hx Hysterectomy, Hx Orthopedic Surgery - back 2 - Immunizations Immunizations up to date: Yes Hx Diphtheria, Pertussis, Tetanus Vaccination: No Physical Exam - Vital signs Vitals: Temp Pulse Resp BP Pulse Ox 98.7 F 81 16 135/63 H 96 02/05/19 18:13 02/05/19 18:13 02/05/19 18:13 02/05/19 18:13 02/05/19 18:13 Course - Vital Signs Vital signs: Temp Pulse Resp BP Pulse Ox 98.7 F 81 16 135/63 H 96 02/05/19 18:13 02/05/19 18:13 02/05/19 18:13 02/05/19 18:13 02/05/19 18:13
[2019-02-05] MEDS ORDERED: ONDANSETRON ODT 4 MG TAB (6 TAB/ER DISP) PO PRN (21:11)
[2019-02-05] MEDS ORDERED: ONDANSETRON 4 MG TAB.RAPDIS ONE (21:12)
[2019-02-05] MEDS ORDERED: METOCLOPRAMIDE HCL INJ/PF 10 MG/2 ML SDV IV ONE (23:52)
[2019-02-05 23:56] LABS: ABSOLUTE BASOPHILS # (AUTO) 0.1 10^3/uL (0.0-0.2); ABSOLUTE EOSINOPHILS # (AUTO) 0.3 10^3/uL (0.0-0.6); ABSOLUTE LYMPHOCYTES (AUTO) 2.2 10^3/uL (0.5-4.7); ABSOLUTE MONOCYTES (AUTO) 0.6 10^3/uL (0.1-1.4); ABSOLUTE NEUT (AUTO) 4.9 10^3/uL (1.7-8.2); BASOPHILS % (AUTO) 1.1 % (0-2); EOSINOPHILS % (AUTO) 3.7 % (0-6); HEMATOCRIT 41.1 % (36.0-47.0); HEMOGLOBIN 13.6 g/dL (12.0-15.5); LYMPHOCYTES % (AUTO) 27.4 % (13-45); MEAN CORPUSCULAR HEMOGLOBIN 30.6 pg (27.0-33.4); MEAN CORPUSCULAR HGB CONC 33.2 g/dL (32.0-36.0); MEAN CORPUSCULAR VOLUME 92 fl (80-97); MONOCYTES % (AUTO) 7.4 % (3-13); PLATELET COUNT 266 10^3/uL (150-450); RED BLOOD COUNT 4.45 10^6/uL (3.72-5.28); RED CELL DISTRIBUTION WIDTH 14.4 % (11.5-14.0); SEGMENTED NEUTROPHILS % (AUTO) 60.4 % (42-78); TOTAL CELLS COUNTED % (AUTO) 100 %
[2019-02-06 00:01] LABS: INTERNATIONAL RATION (INR) 0.92; PROTHROMBIN TIME 12.8 SEC (11.4-15.4)
[2019-02-06 00:14] LABS: ALANINE AMINOTRANSFERASE 19 U/L (9-52); ALKALINE PHOSPHATASE 87 U/L (38-126); ANION GAP 7 (5-19); ASPARTATE AMINO TRANSFERASE 38 U/L (14-36); BILIRUBIN,DIRECT 0.3 mg/dL (0.0-0.4); BILIRUBIN,TOTAL 0.5 mg/dL (0.2-1.3); BLOOD UREA NITROGEN 13 mg/dL (7-20); CALCIUM 9.1 mg/dL (8.4-10.2); CARBON DIOXIDE 31 mmol/L (22-30); CHLORIDE 102 mmol/L (98-107); CREATINE KINASE 52 U/L (30-135); GLUCOSE 113 mg/dL (75-110); POTASSIUM 3.7 mmol/L (3.6-5.0); SODIUM 140.1 mmol/L (137-145); TOTAL PROTEIN 7.4 g/dL (6.3-8.2)
--- NOTE | 2019-02-06 00:19 | RADIOLOGY REPORT (SQ) ---
EXAM DESCRIPTION: [facility]: CT CHEST ANGIOGRAPHY WITHOUT THEN WITH IV CONTRAST CLINICAL HISTORY: 58 years Female; CHEST PAIN, HX OF DVT, LEG SWELLING TECHNIQUE: CT angiogram of the chest using intravenous contrast.. MIP reconstructions were performed. All CT scans at this facility use dose modulation, iterative reconstruction, and/or weight based dosing when appropriate to reduce radiation dose to as low as reasonably achievable. COMPARISON: None. FINDINGS: Chest: No filling defects in the central pulmonary arteries. No acute infiltrate, effusion, or pneumothorax. Mediastinum is normal, with no adenopathy or mass. IMPRESSION: 1. No CT evidence for pulmonary embolism. 2. No acute pulmonary findings.
[2019-02-06 00:26] LABS: CREATINE KINASE MB < 0.22 ng/mL (<4.55); TROPONIN I < 0.012 ng/mL
[2019-02-06] MEDS ORDERED: KETOROLAC TROMETHAMINE INJ/PF 30 MG/1 ML SDV IV ONE (00:43)
--- NOTE | 2019-02-06 01:05 | ER Document Report ---
ED General - General Chief Complaint: Chest Pain Stated Complaint: LEG SWELLING Time Seen by Provider: 02/05/19 19:34 Mode of Arrival: Ambulatory Notes: Patient is a 58-year-old female with a past medical history of DVT x2 presents complaining of several days of left lower extremity pain as well as 24 hours of chest heaviness. Left lower extremity pain is regarded as being a constant, throbbing, moderate to severe pain. Patient states that the pain started several days ago and has been worsening since that time. Nothing improves the pain, walking worsens the pain. States this feels similar to when she had a DVT of the left lower extremity and does not take any form of anticoagulation. Has not seen a primary care doctor regarding this concern. She also states that since waking up this morning she has had some continuous heaviness. Describes as being quite mild, diffusely across her chest without radiation into the arms jaw or back. No associated shortness of breath. No pleuritic pain. Denies any cardiac history. TRAVEL OUTSIDE OF THE [place] IN LAST 30 DAYS: No - Related Data Allergies/Adverse Reactions: fentanyl Allergy (Verified 01/31/19 23:11) morphine Allergy (Verified 01/31/19 23:11) sumatriptan [From Imitrex] Allergy (Verified 01/31/19 23:11) sumatriptan succinate [From Imitrex] Allergy (Verified 01/31/19 23:11) Past Medical History - General Information source: Patient - Social History Smoking Status: Never Smoker Chew tobacco use (# tins/day): No Frequency of alcohol use: None Drug Abuse: None Family History: None, CAD, DM, Malignancy, Other - copd Patient has suicidal ideation: No Patient has homicidal ideation: No - Past Medical History Cardiac Medical History: 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, Hx Pulmonary Embolism Denies: Hx Atrial Fibrillation, Hx Congestive Heart Failure, Hx Coronary Artery Disease, Hx Heart Attack, Hx Hypercholesterolemia, Hx Hypertension, Hx Peripheral Vascular Disease, Hx Heart Murmur Neurological Medical History: Reports: Hx Migraine Renal/ Medical History: Denies: Hx Peritoneal Dialysis Musculoskeletal Medical History: Reports Hx Muscle Spasm Past Surgical History: Reports: Hx Bowel Surgery - Lap lysis of adhesions, Hx Cholecystectomy, Hx Hysterectomy, Hx Orthopedic Surgery - back 2 - Immunizations Immunizations up to date: Yes Hx Diphtheria, Pertussis, Tetanus Vaccination: No Hx Pneumococcal Vaccination: 12/29/10 Review of Systems - Review of Systems Notes: Constitutional: Negative for fever. HENT: Negative for sore throat. Eyes: Negative for visual changes. Cardiovascular: Positive for chest heaviness Respiratory: Negative for shortness of breath. Gastrointestinal: Negative for abdominal pain, vomiting or diarrhea. Genitourinary: Negative for dysuria. Musculoskeletal: Positive for left lower extremity pain Skin: Negative for rash. Neurological: Negative for headaches, weakness or numbness. 10 point ROS negative except as marked above and in HPI. Physical Exam - Vital signs Vitals: Temp Pulse Resp BP Pulse Ox 98.7 F 81 16 135/63 H 96 02/05/19 18:13 02/05/19 18:13 02/05/19 18:13 02/05/19 18:13 02/05/19 18:13 Interpretation: Normal Notes: PHYSICAL EXAMINATION: GENERAL: Well-appearing, well-nourished and in no acute distress. HEAD: Atraumatic, normocephalic. EYES: Pupils equal round and reactive to light, extraocular movements intact, sclera anicteric, conjunctiva are normal. ENT: nares patent, oropharynx clear without exudates. Moist mucous membranes. NECK: Normal range of motion, supple without lymphadenopathy LUNGS: Breath sounds clear to auscultation bilaterally and equal. No wheezes rales or rhonchi. HEART: Regular rate and rhythm without murmurs ABDOMEN: Soft, nontender, normoactive bowel sounds. No guarding, no rebound. No masses appreciated. EXTREMITIES: Normal range of motion, trace edema in the left lower extremity, not present on the right. NEUROLOGICAL: No focal neurological deficits. Moves all extremities spo ntaneously and on command. PSYCH: Normal mood, normal affect. SKIN: Warm, Dry, normal turgor, no rashes or lesions noted. Course - Re-evaluation Re-evalutation: 02/06/19 01:03 Presentation of chest pain in an otherwise well appearing patient. Pain has been constant over the past 24 hours unchanged. Patient was here in the [facility] department for over 6 hours prior to the draw of the first troponin negating the need for a 0 and 3 troponin as the initial troponin obtained effectively 6 hours from initial presentation is normal. Low clinical suspicion for ACS given clinical history, exam, EKG without ST elevations or depressions, and negative initial troponin. HEART score less than or equal to 3. CT of the chest was also ordered from triage given the patient's history of DVT and chest discomfort and is noted to be negative without any evidence of dissection or pulmonary embolus. CXR without evidence of pneumothorax or pneumonia. Patient had a venous Doppler study obtained of her left lower extremity as her primary complaint was actually increased pain to her left lower extremity. 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 However I discussed the patient that she likely should be on chronic anti-coagulation given that she has had 2 unprovoked venous thrombi embolus events and have encouraged to follow-up with this issue with her primary care physician. At this time will discharge with return precautions and follow-up recommendations. Verbal discharge instructions given a the bedside and oppo rtunity for questions given. Medication warnings reviewed. Patient is in agreement with this plan and has verbalized understanding of return precautions and the need for primary care follow-up in the next 24-72 hours. - Vital Signs Vital signs: Temp Pulse Resp BP Pulse Ox 98.2 F 81 15 126/62 H 94 02/06/19 01:01 02/05/19 18:13 02/06/19 01:01 02/06/19 01:01 02/06/19 01:01 - Laboratory Result Diagrams: 02/05/19 23:38 02/05/19 23:38 Laboratory results interpreted by me: 02/05/19 02/05/19 23:38 23:38 RDW 14.4 H Carbon Dioxide 31 H Glucose 113 H AST 38 H - Diagnostic Test Radiology reviewed: Reports reviewed - EKG Interpretation by Me Additional EKG results interpreted by me: 02/06/19 01:06 Sinus rhythm, rate 71. No ST elevations or depressions. QTC is 409. Discharge - Discharge Clinical Impression: Left leg swelling, Left leg pain, Chest discomfort Condition: Good Disposition: HOME, SELF-CARE Additional Instructions: You were seen today for chest pain. The exact cause of your pain is unclear. However, based on your cardiac enzyme testing, chest x-ray, and EKG it does not appear that it is from an immediately life-threatening cause at this time. Although your testing here is normal is critical that you follow-up with your primary care physician for continued evaluation of this chest pain and possible stress testing. I recommended you see your physician within the next 24-48 hours to be evaluated for consideration of a stress test. Please return to emergency department immediately if you have worsening of your chest pain, shortness of breath, vomiting, become unable to exert yourself due to pain or difficulty breathing, you pass out, or have any pain that radiates into your arms, jaw, or back. Please also return if you have any additional symptoms that are concerning to you. Your ultrasound does not demonstrate any evidence of recurrent blood clot. Your leg swelling on the left is likely due to your history of previous blood clots. As we discussed given that you had 2 episodes of DVTs in the past you should be on chronic anticoagulation. Please discuss this with your primary care physician. Return if you have worsening of pain to your left leg, discoloration, fever, become unable to walk secondary to pain or have any other symptoms that are worrisome to you
[2019-02-06 01:09] VITALS: BP 126/62
--- NOTE | 2019-02-06 13:00 | XCELERA REPORT ---
[address] [facility] [place] [id number] Lower Extremity Venous Evaluation Procedure: Color flow and duplex imaging bilaterally of the veins of the lower extremities as well as the Common Femoral veins. Right Sided Venous Evaluation Normal vessel filling wall to wall, compression and augmentation as well as Colour flow down to the infrageniculate veins. Left Sided Venous Evaluation Normal vessel filling wall to wall, compression and augmentation as well as Colour flow down to the infrageniculate veins. Interpretation Summary No duplex evidence of DVT or obstruction in the bilateral lower extremities. Name: KRISTA RAHMAN Age: 58 yrs Gender: Female : 1960 Patient Status: Preadmit Patient Location: ER Study Date: 02/05/2019 08:03 PM Reason For Study: LEG SWELLING, HX OF DVT Ordering Physician: DERRELL DICK Performed By: Charis Ro : DERRELL DICK > [place]
== END 2019-02-06 01:18 | disposition home or self-care (01) ==
LOC: ER 17:51
DX: M79.605 Pain in left leg (principal); R60.0 Localized edema; R07.9 Chest pain, unspecified; M79.89 Other specified soft tissue disorders; Z86.718 Personal history of other venous thrombosis and embolism; Z88.5 Allergy status to narcotic agent; Z88.6 Allergy status to analgesic agent
CPT/HCPCS: 93005; 99284; 96374; 96375; 36415; 82553; 82550; 85025; 85610; 80053; 84484; 93970 ×2; 71046; 71275; 93010; A9270 ×2; J1885; J2765

== ENCOUNTER 2019-06-23 03:41 | Emergency (ER) | payer MEDICARE, MEDICAID ==
[2019-06-23] MEDS ORDERED: ONDANSETRON HCL INJ/PF 4 MG/2 ML SDV IV ONE (04:53)
[2019-06-23 05:32] LABS: ABSOLUTE EOSINOPHILS # (AUTO) 0.3 10^3/uL (0.0-0.6); ABSOLUTE LYMPHOCYTES (AUTO) 2.3 10^3/uL (0.5-4.7); ABSOLUTE MONOCYTES (AUTO) 0.6 10^3/uL (0.1-1.4); ABSOLUTE NEUT (AUTO) 4.3 10^3/uL (1.7-8.2); BASOPHILS % (AUTO) 0.6 % (0-2); EOSINOPHILS % (AUTO) 3.4 % (0-6); HEMOGLOBIN 13.9 g/dL (12.0-15.5); MEAN CORPUSCULAR HEMOGLOBIN 30.6 pg (27.0-33.4); MEAN CORPUSCULAR HGB CONC 33.1 g/dL (32.0-36.0); MEAN CORPUSCULAR VOLUME 92 fl (80-97); MONOCYTES % (AUTO) 7.6 % (3-13); PLATELET COUNT 268 10^3/uL (150-450); RED BLOOD COUNT 4.55 10^6/uL (3.72-5.28); RED CELL DISTRIBUTION WIDTH 14.4 % (11.5-14.0); SEGMENTED NEUTROPHILS % (AUTO) 57.4 % (42-78); TOTAL CELLS COUNTED % (AUTO) 100 %; WHITE BLOOD COUNT 7.6 10^3/uL (4.0-10.5)
[2019-06-23] MEDS ORDERED: PROMETHAZINE HCL INJ 25 MG/1 ML VIAL IV ONE (05:37)
[2019-06-23] MEDS ORDERED: NORMAL SALINE 1000 ML 1,000 ML IV ONE (05:37)
[2019-06-23] MEDS ORDERED: HYDROMORPHONE HCL INJ/PF 2 MG/ML AMPULE IV ONE (05:41)
[2019-06-23 05:49] LABS: ALKALINE PHOSPHATASE 116 U/L (38-126); ANION GAP 9 (5-19); ASPARTATE AMINO TRANSFERASE 22 U/L (14-36); BILIRUBIN,DIRECT 0.1 mg/dL (0.0-0.4); BILIRUBIN,TOTAL 0.4 mg/dL (0.2-1.3); BLOOD UREA NITROGEN 17 mg/dL (7-20); CALCIUM 9.2 mg/dL (8.4-10.2); CARBON DIOXIDE 24 mmol/L (22-30); CHLORIDE 107 mmol/L (98-107); GLUCOSE 129 mg/dL (75-110); POTASSIUM 3.7 mmol/L (3.6-5.0); TOTAL PROTEIN 7.1 g/dL (6.3-8.2)
--- NOTE | 2019-06-23 06:16 | ER Document Report ---
ED GI/ - General Chief Complaint: Vomiting Stated Complaint: LEFT LEG SWELLING,VOMITING Time Seen by Provider: 06/23/19 04:53 Notes: Patient is a 59-year-old female presents to the emergency department for chronic back and knee pain. Patient voices she has had over 13 episodes of vomiting as well as 6 episodes of diarrhea denying blood in either in the last 24 hours. States she typically takes Percocet for her chronic back and left knee pain. States she has been unable to keep her pills down which is why she presents to the emergency room. Patient's main complaint is generalized pain left knee. Patient advised that she recently had an MRI and was told her knee is "[id number]" states she was told she needs a knee replacement. Patient voices she is allergic to fentanyl and morphine. TRAVEL OUTSIDE OF THE [place] IN LAST 30 DAYS: No - Related Data Allergies/Adverse Reactions: fentanyl Allergy (Verified 01/31/19 23:11) morphine Allergy (Verified 01/31/19 23:11) sumatriptan [From Imitrex] Allergy (Verified 01/31/19 23:11) sumatriptan succinate [From Imitrex] Allergy (Verified 01/31/19 23:11) Past Medical History - General Information source: Patient - Social History Smoking Status: Never Smoker Family History: None, CAD, DM, Malignancy, Other - copd Patient has suicidal ideation: No Patient has homicidal ideation: No - Past Medical History Cardiac Medical History: 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, Hx Pulmonary Embolism Denies: Hx Atrial Fibrillation, Hx Congestive Heart Failure, Hx Coronary Artery Disease, Hx Heart Attack, Hx Hypercholesterolemia, Hx Hypertension, Hx Peripheral Vascular Disease, Hx Heart Murmur Neurological Medical History: Reports: Hx Migraine Renal/ Medical History: Denies: Hx Peritoneal Dialysis Musculoskeletal Medical History: Reports Hx Muscle Spasm Past Surgical History: Reports: Hx Bowel Surgery - Lap lysis of adhesions, Hx Cholecystectomy, Hx Hysterectomy, Hx Orthopedic Surgery - back 2 - Immunizations Immunizations up to date: Yes Hx Diphtheria, Pertussis, Tetanus Vaccination: No Hx Pneumococcal Vaccination: 12/29/10 Review of Systems - Review of Systems Constitutional: denies: Fever EENT: No symptoms reported Cardiovascular: No symptoms reported. denies: Chest pain Respiratory: denies: Short of breath Gastrointestinal: denies: Abdomen distended, Abdominal pain Genitourinary: denies: Burning, Dysuria Female Genitourinary: No symptoms reported Musculoskeletal: See HPI Skin: No symptoms reported Hematologic/Lymphatic: No symptoms reported Neurological/Psychological: No symptoms reported Physical Exam - Vital signs Vitals: Temp Pulse Resp BP Pulse Ox 98.4 F 74 16 132/71 H 98 06/23/19 03:42 06/23/19 03:42 06/23/19 03:42 06/23/19 03:42 06/23/19 03:42 - Notes Notes: GENERAL: Alert, interacts well. HEAD: Normocephalic, atraumatic. EYES: Pupils equal, round, and reactive to light. Extraocular movements intact. ENT: Oral mucosa moist, tongue midline. NECK: Full range of motion. Supple. Trachea midline. LUNGS: Clear to auscultation bilaterally, no wheezes, rales, or rhonchi. No respiratory distress. HEART: Regular rate and rhythm. No murmur ABDOMEN: Soft, non-tender. Non-distended. Bowel sounds present in all 4 quadrants. No McBurney's point tenderness, no River sign noted. EXTREMITIES: Moves all 4 extremities spontaneously. No edema, normal radial and dorsalis pedis pulses bilaterally. No cyanosis. No pain noted bilateral calfs. Generalized pain palpation left knee, no swelling appreciated left lower extremity. BACK: no cervical, thoracic, lumbar midline tenderness. No saddle anesthesia, normal distal neurovascular exam. Generalized paraspinal lumbar back pain noted bilaterally. NEUROLOGICAL: Alert and oriented x3. Normal speech. cranial nerves II through XII grossly intact PSYCH: Normal affect, normal mood. SKIN: Warm, dry, normal turgor. No rashes or lesions noted. Course - Re-evaluation Re-evalutation: Reviewing past charts it does appear the patient presents to the emergency department couple times for the same complaints. She has been run through [facility] and has had multiple narcotic prescriptions. Patient has had no episodes of vomiting while in the emergency department. Patient voices she did vomit x1 but when she shows me the emesis bag there is what appears to be saliva in it. 06/23/19 06:48 Laboratory 06/23/19 06/23/19 06/23/19 03:25 05:10 05:10 WBC 7.6 RBC 4.55 Hgb 13.9 Hct 42.0 MCV 92 MCH 30.6 MCHC 33.1 RDW 14.4 H Plt Count 268 Lymph % (Auto) 31.0 [place] % (Auto) 7.6 Eos % (Auto) 3.4 Baso % (Auto) 0.6 Absolute Neuts (auto) 4.3 Absolute Lymphs (auto) 2.3 Absolute Monos (auto) 0.6 Absolute Eos (auto) 0.3 Absolute Basos (auto) 0.0 Seg Neutrophils % 57.4 Sodium 140.0 Potassium 3.7 Chloride 107 Carbon Dioxide 24 Anion Gap 9 BUN 17 Creatinine 0.83 Est GFR ( Amer) > 60 Est GFR (MDRD) Non-Af > 60 Glucose 129 H Calcium 9.2 Total Bilirubin 0.4 Direct Bilirubin 0.1 Neonat Total Bilirubin Not Reportable Neonat Direct Bilirubin Not Reportable Neonat Indirect Bili Not Reportable AST 22 ALT 16 Alkaline Phosphatase 116 Total Protein 7.1 Albumin 4.0 Lipase 88.4 Urine Color YELLOW Urine Appearance CLEAR Urine pH 6.0 Ur Specific [place] 1.015 Urine Protein NEGATIVE Urine Glucose (UA) NEGATIVE Urine Ketones NEGATIVE Urine Blood SMALL H Urine Nitrite NEGATIVE Urine Bilirubin NEGATIVE Urine Urobilinogen NEGATIVE Ur Leukocyte Esterase NEGATIVE Urine WBC (Auto) 1 Urine Bacteria (Auto) TRACE Squamous Epi Cells Auto <1 Urine Mucus (Auto) RARE Urine Ascorbic Acid NEGATIVE Labs show no signs of leukocytosis. Urine shows no signs of infection. No signs of electrolyte abnormalities noted. Patient was initially treated with Zofran and voices she is still nauseous. Then treated with Phenergan. Patient also complaining of her chronic back and left knee pain. Treated with Dilaudid as she voices she is allergic to fentanyl and morphine. Upon reassessment patient has had no episodes of vomiting. Patient states she overall feels a lot better. Patient then voices she would like another dose of pain medication. I have discussed with her she can go home and take her home medications as prescribed. Patient agrees to plan. At this time will discharge with return precautions and follow-up recommendations. Verbal discharge instructions given a the bedside and opportunity for questions given. Medication warnings reviewed. Patient is in agreement with this plan and has verbalized understanding of return precautions and the need for primary care follow-up in the next 24-72 hours. This medical record was dictated with voice recognizing software. There may be grammatical, syntax errors that are unintended. - Vital Signs Vital signs: Temp Pulse Resp BP Pulse Ox 98.4 F 74 16 132/71 H 98 06/23/19 03:42 06/23/19 03:42 06/23/19 03:42 06/23/19 03:42 06/23/19 03:42 - Laboratory Result Diagrams: 06/23/19 05:10 06/23/19 05:10 Laboratory results interpreted by me: 06/23/19 06/23/19 06/23/19 03:25 05:10 05:10 RDW 14.4 H Glucose 129 H Urine Blood SMALL H Discharge - Discharge Clinical Impression: Nausea vomiting and diarrhea Chronic back pain Qualifiers: Back pain location: low back pain Back pain laterality: unspecified Sciatica presence: without sciatica Qualified Code(s): M54.5 - Low back pain; G89.29 - Other chronic pain Chronic knee pain Qualifiers: Laterality: left Qualified Code(s): M25.562 - Pain in left knee; G89.29 - Other chronic pain Condition: Stable Disposition: HOME, SELF-CARE Instructions: Intravenous (IV) Fluids ([facility]), Diarrhea, Nonspecific ([facility]), Antinausea Medication ([facility]), Vomiting ([facility]) Additional Instructions: As we discussed you have been seen and treated in the emergency department for nausea, vomiting, diarrhea. Your labs revealed no signs of overwhelming infection. Your urine also shows no signs of urinary tract infection. Please make sure you are using nausea medication as prescribed. You can buy [id number] antidiarrheal medication, use as package instructs. Please make sure you are taking your home medications as prescribed. Please follow-up with your primary care provider in the next 24 to 48 hours. Return to the emergency room for any concerns. Prescriptions: Promethazine HCl [Phenergan 25 mg Tablet] 2 tab PO Q6H PRN #15 tablet PRN Reason: Referrals: [facility] [Provider Group] - Follow up as needed
[2019-06-23 06:46] LABS: APPEARANCE,URINE CLEAR; BILIRUBIN,URINE NEGATIVE (NEGATIVE); COLOR,URINE YELLOW; GLUCOSE, URINE NEGATIVE (NEGATIVE); KETONES,URINE NEGATIVE (NEGATIVE); LEUKOCYTE ESTERASE,URINE NEGATIVE (NEGATIVE); NITRITE,URINE NEGATIVE (NEGATIVE); PROTEIN,URINE NEGATIVE (NEGATIVE); URINE SPECIFIC GRAVITY 1.015; UROBILINOGEN,URINE NEGATIVE mg/dL (<2.0)
[2019-06-23 07:08] VITALS: BP 108/56
== END 2019-06-23 08:00 | disposition home or self-care (01) ==
LOC: ER 03:41
DX: G89.29 Other chronic pain (principal); M25.562 Pain in left knee; M54.5 Low back pain; R11.2 Nausea with vomiting, unspecified; R19.7 Diarrhea, unspecified; Z79.891 Long term (current) use of opiate analgesic; Z88.5 Allergy status to narcotic agent; Z88.6 Allergy status to analgesic agent
CPT/HCPCS: 99283; 96361; 96374; 96375; 36415; 83690; 85025; 80053; 81001; J1170; J2550; J2405; J7030

== ENCOUNTER 2019-06-28 02:11 | Emergency (ER) | payer MEDICARE, MEDICAID ==
[2019-06-28 02:40] VITALS: BP 150/69
[2019-06-28] MEDS ORDERED: PROMETHAZINE HCL INJ 25 MG/1 ML VIAL IM ONE (07:33)
--- NOTE | 2019-06-28 07:40 | ER Document Report ---
ED General - General Chief Complaint: Back Pain Stated Complaint: LOWER BACK PAIN Time Seen by Provider: 06/28/19 06:24 TRAVEL OUTSIDE OF THE [place] IN LAST 30 DAYS: No - HPI Notes: Patient is a 59-year-old female presents emergency department for evaluation. She states she is having a "flare" of her chronic back pain. She is had back surgery in the past. She complains of pain in her lower back that radiates into her left leg. She denies any bowel or bladder incontinence, no saddle anesthesia, no focal numbness or weakness. No fevers. She states "normally they give me Dilaudid and Phenergan." - Related Data Allergies/Adverse Reactions: fentanyl Allergy (Verified 01/31/19 23:11) morphine Allergy (Verified 01/31/19 23:11) sumatriptan [From Imitrex] Allergy (Verified 01/31/19 23:11) sumatriptan succinate [From Imitrex] Allergy (Verified 01/31/19 23:11) Past Medical History - General Information source: Patient - Social History Smoking Status: Never Smoker Chew tobacco use (# tins/day): No Drug Abuse: None Family History: None, CAD, DM, Malignancy, Other - copd Patient has suicidal ideation: No Patient has homicidal ideation: No - Past Medical History Cardiac Medical History: 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, Hx Pulmonary Embolism Denies: Hx Atrial Fibrillation, Hx Congestive Heart Failure, Hx Coronary Artery Disease, Hx Heart Attack, Hx Hypercholesterolemia, Hx Hypertension, Hx Peripheral Vascular Disease, Hx Heart Murmur Neurological Medical History: Reports: Hx Migraine Renal/ Medical History: Denies: Hx Peritoneal Dialysis Musculoskeletal Medical History: Reports Hx Muscle Spasm Past Surgical History: Reports: Hx Bowel Surgery - Lap lysis of adhesions, Hx Cholecystectomy, Hx Hysterectomy, Hx Orthopedic Surgery - back 2, Other - Back surgery - Immunizations Immunizations up to date: Yes Hx Diphtheria, Pertussis, Tetanus Vaccination: No Hx Pneumococcal Vaccination: 12/29/10 Review of Systems - Review of Systems Constitutional: No symptoms reported EENT: No symptoms reported Cardiovascular: No symptoms reported Respiratory: No symptoms reported Gastrointestinal: See HPI Genitourinary: No symptoms reported Female Genitourinary: No symptoms reported Skin: No symptoms reported Neurological/Psychological: No symptoms reported Physical Exam - Vital signs Vitals: Temp Pulse Resp BP Pulse Ox 97.5 F 97 16 150/69 H 99 06/28/19 02:38 06/28/19 02:38 06/28/19 02:38 06/28/19 02:38 06/28/19 02:38 - Notes Notes: Vital signs reviewed, please refer to chart. Head is normocephalic, atraumatic. Pupils equal round, reactive to light. Neck is supple without meningismus. Heart is regular rate and rhythm. Lungs are clear to auscultation bilaterally. Abdomen is soft, nontender, normoactive bowel sounds throughout. Extremities without cyanosis, clubbing. Posterior calves are nontender. Peripheral pulses are equal. Skin is warm and dry. Patient is awake, alert, neurological exam is nonfocal. Course - Re-evaluation Re-evalutation: 06/28/19 07:37 Patient presents emergency department for evaluation. This is a flare of her chronic pain. She has nausea and vomiting when her pain is flared. The patient is already on Percocet at home. I do not feel comfortable administering narcotics and Phenergan to this patient. She states she believes she would feel better if she was able to keep her Percocet down. She is given a shot of IM Phenergan here. I will send her home with a prescription for anti- inflammatories. She is to follow-up with primary care, return to the ED with worsening or new concerning symptoms of any sort. - Vital Signs Vital signs: Temp Pulse Resp BP Pulse Ox 97.5 F 97 16 150/69 H 99 06/28/19 02:38 06/28/19 02:38 06/28/19 02:38 06/28/19 02:38 06/28/19 02:38 Discharge - Discharge Clinical Impression: Chronic back pain Qualifiers: Back pain location: low back pain Back pain laterality: bilateral Sciatica presence: with sciatica Sciatica laterality: sciatica of left side Qualified Code(s): M54.42 - Lumbago with sciatica, left side; G89.29 - Other chronic pain Nausea and vomiting Qualifiers: Vomiting Intractability: intractable Condition: Stable Disposition: HOME, SELF-CARE Instructions: Low Back Pain ([facility]) Additional Instructions: Take your regular medications as prescribed. Take Mobic as directed, with food. Follow-up with primary care next week. Return to ED if worsening or concerning symptoms of any sort.
== END 2019-06-28 07:50 | disposition home or self-care (01) ==
LOC: ER 02:11
DX: M54.42 Lumbago with sciatica, left side (principal); G89.29 Other chronic pain; M54.9 Dorsalgia, unspecified; M79.605 Pain in left leg; Z86.718 Personal history of other venous thrombosis and embolism
CPT/HCPCS: 99283

== ENCOUNTER 2019-07-23 23:06 | Emergency (ER) | payer MEDICARE, MEDICAID ==
[2019-07-24] MEDS ORDERED: ASPIRIN 81 MG TABLET, CHEWABLE PO ONE (00:42)
[2019-07-24] MEDS ORDERED: ASPIRIN 81 MG TABLET, CHEWABLE ONE (00:48)
[2019-07-24 01:50] LABS: ABSOLUTE BASOPHILS # (AUTO) 0.1 10^3/uL (0.0-0.2); ABSOLUTE EOSINOPHILS # (AUTO) 0.4 10^3/uL (0.0-0.6); ABSOLUTE LYMPHOCYTES (AUTO) 2.9 10^3/uL (0.5-4.7); ABSOLUTE MONOCYTES (AUTO) 0.6 10^3/uL (0.1-1.4); ABSOLUTE NEUT (AUTO) 4.7 10^3/uL (1.7-8.2); BASOPHILS % (AUTO) 0.8 % (0-2); EOSINOPHILS % (AUTO) 4.4 % (0-6); HEMATOCRIT 40.7 % (36.0-47.0); HEMOGLOBIN 13.4 g/dL (12.0-15.5); LYMPHOCYTES % (AUTO) 33.6 % (13-45); MEAN CORPUSCULAR HEMOGLOBIN 30.5 pg (27.0-33.4); MEAN CORPUSCULAR VOLUME 93 fl (80-97); MONOCYTES % (AUTO) 7.4 % (3-13); PLATELET COUNT 238 10^3/uL (150-450); RED CELL DISTRIBUTION WIDTH 14.9 % (11.5-14.0); SEGMENTED NEUTROPHILS % (AUTO) 53.8 % (42-78); TOTAL CELLS COUNTED % (AUTO) 100 %; WHITE BLOOD COUNT 8.7 10^3/uL (4.0-10.5)
[2019-07-24 02:07] LABS: ALBUMIN 4.1 g/dL (3.5-5.0); ALKALINE PHOSPHATASE 127 U/L (38-126); ANION GAP 7 (5-19); ASPARTATE AMINO TRANSFERASE 27 U/L (14-36); BILIRUBIN,DIRECT 0.2 mg/dL (0.0-0.4); BILIRUBIN,TOTAL 0.3 mg/dL (0.2-1.3); BLOOD UREA NITROGEN 18 mg/dL (7-20); CALCIUM 9.2 mg/dL (8.4-10.2); CARBON DIOXIDE 30 mmol/L (22-30); CHLORIDE 104 mmol/L (98-107); CREATINE KINASE 80 U/L (30-135); GLUCOSE 83 mg/dL (75-110); POTASSIUM 3.9 mmol/L (3.6-5.0); TOTAL PROTEIN 7.5 g/dL (6.3-8.2)
[2019-07-24 02:18] LABS: CREATINE KINASE MB 1.01 ng/mL (<4.55)
[2019-07-24 02:19] LABS: TROPONIN I < 0.012 ng/mL
[2019-07-24] MEDS ORDERED: HYDROMORPHONE HCL INJ/PF 2 MG/ML AMPULE IV ONE ×2 (02:38→04:16)
[2019-07-24] MEDS ORDERED: PROMETHAZINE HCL INJ 25 MG/1 ML VIAL IM ONE (02:38)
--- NOTE | 2019-07-24 02:40 | ER Document Report ---
ED General - General Chief Complaint: Shortness Of Breath Stated Complaint: LEG SWELLING/CHEST PRESSURE/NAUSEA Time Seen by Provider: 07/24/19 02:31 Notes: Patient is a 59-year-old female that comes to the emergency department for chief complaint of swelling and pain to the left leg, this is been going on for the past 2 days, she also states that earlier today this afternoon she started feeling pain in her chest that continued into this evening but after she received aspirin in the emergency department tonight her pain did begin to subside. She has vague shortness of breath. She did have a recent flight earlier this month traveling here, she also has a history of DVT, she is to be on Coumadin but has not been for 1.5 years now. She denies smoking. There is no obvious cause of her previous clot reportedly. She denies any other co mplaints including fever/chills, injury. TRAVEL OUTSIDE OF THE [place] IN LAST 30 DAYS: No - Related Data Allergies/Adverse Reactions: fentanyl Allergy (Verified 07/24/19 01:56) morphine Allergy (Verified 07/24/19 01:56) sumatriptan [From Imitrex] Allergy (Verified 07/24/19 01:56) sumatriptan succinate [From Imitrex] Allergy (Verified 07/24/19 01:56) Home Medications: Gabapentin. Percocet. Permithazine PRN. Robaxin. Vitamin D and C Past Medical History - General Information source: Patient - Social History Smoking Status: Never Smoker Chew tobacco use (# tins/day): No Frequency of alcohol use: None Drug Abuse: None Lives with: Family Family History: None, CAD, DM, Malignancy, Other - copd Patient has suicidal ideation: No Patient has homicidal ideation: No - Past Medical History Cardiac Medical History: 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, Hx Pulmonary Embolism Denies: Hx Atrial Fibrillation, Hx Congestive Heart Failure, Hx Coronary Artery Disease, Hx Heart Attack, Hx Hypercholesterolemia, Hx Hypertension, Hx Peripheral Vascular Disease, Hx Heart Murmur Neurological Medical History: Reports: Hx Migraine Renal/ Medical History: Denies: Hx Peritoneal Dialysis Musculoskeletal Medical History: Reports Hx Muscle Spasm Past Surgical History: Reports: Hx Bowel Surgery - Lap lysis of adhesions, Hx Cholecystectomy, Hx Hysterectomy, Hx Orthopedic Surgery - back 2, Other - Back surgery - Immunizations Immunizations up to date: Yes Hx Diphtheria, Pertussis, Tetanus Vaccination: No Hx Pneumococcal Vaccination: 12/29/10 Review of Systems - Review of Systems Constitutional: No symptoms reported EENT: No symptoms reported Cardiovascular: See HPI Respiratory: See HPI Gastrointestinal: No symptoms reported Genitourinary: No symptoms reported Female Genitourinary: No symptoms reported Musculoskeletal: See HPI Skin: No symptoms reported Hematologic/Lymphatic: No symptoms reported Neurological/Psychological: No symptoms reported Physical Exam - Vital signs Vitals: Temp Pulse Resp BP Pulse Ox 98.2 F 73 20 142/68 H 96 07/23/19 23:28 07/23/19 23:28 07/23/19 23:28 07/23/19 23:28 07/23/19 23:28 - Notes Notes: GENERAL: Slightly restless and mildly uncomfortable but no severe distress HEAD: Normocephalic, atraumatic. EYES: Pupils equal, round, and reactive to light. Extraocular movements intact. ENT: Oral mucosa moist, tongue midline. Oropharynx unremarkable. Airway patent. NECK: Full range of motion. Supple. Trachea midline. LUNGS: Clear to auscultation bilaterally, no wheezes, rales, or rhonchi. No respiratory distress. HEART: Regular rate and rhythm. No murmur ABDOMEN: Soft, non-tender. Non-distended. Bowel sounds present in all 4 quadrants. GENITOURINARY: Deferred EXTREMITIES: There is subtle swelling in the left lower extremity below the knee, there is some tenderness around the knee especially over the medial aspect but range of motion is intact, temperature and color intact. Normal distal neurovascular exam. Normal extremities otherwise. BACK: no cervical, thoracic, lumbar midline tenderness. No saddle anesthesia, normal distal neurovascular exam. Moves all extremities in full range of motion. NEUROLOGICAL: Alert and oriented x3. Normal speech. Cranial nerves II through XII grossly intact. PSYCH: Slightly restless SKIN: Warm, dry, normal turgor. No rashes or lesions noted. Course - Re-evaluation Re-evalutation: EKG is normal, CBC, chemistry unremarkable, initial troponin is negative. Because of patient's left leg swelling, recent flight, reported intermittent dyspnea and chest pain, I did recommend CTA after discussion with the patient. She is in full agreement with this. She is requiring pain medicine for pain for her leg, there also appears to be a pain component with the left knee where she has arthritis but there is some swelling noted in the lower extremity in addition to this. She denies recent injury. No erythema, severe tenderness to light, or signs of infection. No fever. Troponin cycled and negative. CT is negative for pulmonary embolism. I do not have venous Doppler ultrasound available at this time, I recommended having patient wait 2 hours and have this performed. Patient declines. She states that she needs to go home, check on her mother, and she asks for a Doppler to be arranged for her to have performed. She states that she will return to emergency department if this is positive and she will get this performed today. After discussion she also will not be given anticoagulation at this time, and states she will be given a knee immobilizer and crutches with the specific instructions for the Doppler to be performed this morning. Patient states agreement with this plan, stable at time of discharge. - Vital Signs Vital signs: Temp Pulse Resp BP Pulse Ox 98.2 F 73 24 H 145/90 H 98 07/23/19 23:28 07/23/19 23:28 07/24/19 06:01 07/24/19 06:01 07/24/19 06:01 - Laboratory Result Diagrams: 07/24/19 01:41 07/24/19 01:41 Laboratory results interpreted by me: 07/24/19 07/24/19 01:41 01:41 RDW 14.9 H Est GFR ( Amer) 57 L Est GFR (MDRD) Non-Af 47 L Alkaline Phosphatase 127 H Discharge - Discharge Clinical Impression: Shortness of breath, Left leg pain Condition: Stable Disposition: HOME, SELF-CARE Additional Instructions: CTA of the chest does not show blood clot. Your testing up to this point is normal. Please have the ultrasound of your leg performed this morning to rule out DVT. Return to the emergency department immediately if instructed to do so. If this is not a DVT this is most likely musculoskeletal from her knee, wear the knee immobilizer, ice, follow-up with orthopedics. Return for any concerning symptoms including return symptoms of chest pain or difficulty breathing, increased swelling, fever, or any other concerning or worsening symptoms. Forms: Follow-Up Outpatient Testing
--- NOTE | 2019-07-24 04:49 | RADIOLOGY REPORT (SQ) ---
CT angiogram chest with contrast on 07/24/2019 at 3:57 AM CLINICAL INDICATION: Chest pain, shortness of breath, history of prior DVT TECHNIQUE: Multiple axial images are obtained throughout the chest following the administration of IV contrast. Computer generated 3D reconstructions/MIPS were performed. This exam was performed according to our departmental dose-optimization program, which includes automated exposure control, adjustment of the mA and/or kV according to patient size and/or use of iterative reconstruction technique. Total DLP is 485.35 mGy*cm. COMPARISON: 02/05/2019 FINDINGS: There is no thoracic aortic aneurysm or dissection. Limited visualized upper abdomen is unremarkable. There is no pleural or pericardial effusion. There is no thoracic adenopathy. There are no filling defects within the pulmonary arteries to suggest pulmonary embolus. There is minimal left basilar atelectasis and/or scarring. The lungs are otherwise clear. No acute bony abnormality is noted. IMPRESSION: 1. No evidence of pulmonary embolus. 2. No acute abnormality.
[2019-07-24 06:08] VITALS: BP 145/90
== END 2019-07-24 06:09 | disposition home or self-care (01) ==
LOC: ER 23:06
DX: R06.02 Shortness of breath (principal); M79.605 Pain in left leg; R11.0 Nausea; Z86.718 Personal history of other venous thrombosis and embolism; Z86.711 Personal history of pulmonary embolism; Z90.49 Acquired absence of other specified parts of digestive tract; Z90.710 Acquired absence of both cervix and uterus; Z88.6 Allergy status to analgesic agent
CPT/HCPCS: 36415; 71275; 80053; 82550; 82553; 84484; 85025; J1170; J2550; L1830

== ENCOUNTER 2019-11-06 04:58 | Emergency (ER) | payer MEDICARE, MEDICAID ==
[2019-11-06 05:51] LABS: ABSOLUTE BASOPHILS # (AUTO) 0.1 10^3/uL (0.0-0.2); ABSOLUTE EOSINOPHILS # (AUTO) 0.4 10^3/uL (0.0-0.6); ABSOLUTE LYMPHOCYTES (AUTO) 3.2 10^3/uL (0.5-4.7); ABSOLUTE MONOCYTES (AUTO) 0.6 10^3/uL (0.1-1.4); ABSOLUTE NEUT (AUTO) 2.4 10^3/uL (1.7-8.2); BASOPHILS % (AUTO) 1.2 % (0-2); EOSINOPHILS % (AUTO) 5.7 % (0-6); HEMOGLOBIN 13.5 g/dL (12.0-15.5); MEAN CORPUSCULAR HEMOGLOBIN 31.1 pg (27.0-33.4); MEAN CORPUSCULAR HGB CONC 32.9 g/dL (32.0-36.0); MEAN CORPUSCULAR VOLUME 94 fl (80-97); MONOCYTES % (AUTO) 9.5 % (3-13); PLATELET COUNT 252 10^3/uL (150-450); RED BLOOD COUNT 4.35 10^6/uL (3.72-5.28); RED CELL DISTRIBUTION WIDTH 13.9 % (11.5-14.0); SEGMENTED NEUTROPHILS % (AUTO) 35.6 % (42-78); TOTAL CELLS COUNTED % (AUTO) 100 %; WHITE BLOOD COUNT 6.6 10^3/uL (4.0-10.5)
[2019-11-06 06:07] LABS: ALBUMIN 3.7 g/dL (3.5-5.0); ALKALINE PHOSPHATASE 114 U/L (38-126); ANION GAP 11 (5-19); ASPARTATE AMINO TRANSFERASE 25 U/L (14-36); BILIRUBIN,DIRECT 0.3 mg/dL (0.0-0.4); BILIRUBIN,TOTAL 0.4 mg/dL (0.2-1.3); BLOOD UREA NITROGEN 18 mg/dL (7-20); CALCIUM 8.5 mg/dL (8.4-10.2); CARBON DIOXIDE 21 mmol/L (22-30); CHLORIDE 107 mmol/L (98-107); GLUCOSE 110 mg/dL (75-110); POTASSIUM 3.9 mmol/L (3.6-5.0); TOTAL PROTEIN 6.8 g/dL (6.3-8.2)
[2019-11-06] MEDS ORDERED: NORMAL SALINE 1000 ML 1,000 ML IV ONE (07:24)
[2019-11-06] MEDS ORDERED: METOCLOPRAMIDE HCL INJ/PF 10 MG/2 ML SDV IV ONE (07:25)
[2019-11-06] MEDS ORDERED: KETOROLAC TROMETHAMINE INJ/PF 30 MG/1 ML SDV IV ONE (08:47)
[2019-11-06] MEDS ORDERED: DEXTROSE 5%-LACTATED RINGERS 1,000 ML IV ONE (08:48)
[2019-11-06 10:08] LABS: APPEARANCE,URINE CLEAR; BILIRUBIN,URINE NEGATIVE (NEGATIVE); COLOR,URINE COLORLESS; GLUCOSE, URINE NEGATIVE (NEGATIVE); KETONES,URINE NEGATIVE (NEGATIVE); LEUKOCYTE ESTERASE,URINE NEGATIVE (NEGATIVE); NITRITE,URINE NEGATIVE (NEGATIVE); PROTEIN,URINE NEGATIVE (NEGATIVE); URINE SPECIFIC GRAVITY 1.004; UROBILINOGEN,URINE NEGATIVE mg/dL (<2.0)
[2019-11-06 10:21] VITALS: BP 137/77
--- NOTE | 2019-11-09 10:25 | ER Document Report ---
Entered by CHUCK STOVER SCRIBE 11/06/19 07 Acting as scribe for:KATIE ADHIKARI MD ED General - General Chief Complaint: Nausea/Vomiting/Diarrhea Stated Complaint: VOMITING AND PAIN IN RIGHT LEG Time Seen by Provider: 11/06/19 07:07 Primary Care Provider: ISELA TAM MD [Primary Care Provider] - Follow up as needed Information source: Patient Notes: 59 year old female presents to the emergency department complaining of right thigh pain that began 3 months [facility] with associated nausea and vomiting that began last night. Patient describes the pain as located in her right medial thigh that radiates to her groin and lower right back. Patient states that associated swelling occurs off and on. Patient states that she "can't even lift her leg". Patient mentions that it is normal for her to vomit when pain is severe. Patient reports that has seen a doctor for her pain and has had physical therapy as well as a CT scan. Patient states that "physical therapy has not worked". PMHx: DVT in left leg X2 TRAVEL OUTSIDE OF THE [place] IN LAST 30 DAYS: No - Related Data Allergies/Adverse Reactions: fentanyl Allergy (Verified 11/06/19 05:12) morphine Allergy (Verified 11/06/19 05:12) sumatriptan [From Imitrex] Allergy (Verified 11/06/19 05:12) sumatriptan succinate [From Imitrex] Allergy (Verified 11/06/19 05:12) Past Medical History - General Information source: Patient - Social History Smoking Status: Never Smoker Cigarette use (# per day): No Chew tobacco use (# tins/day): No Family History: CAD, DM, Malignancy, Other - COPD Patient has suicidal ideation: No Patient has homicidal ideation: No - Past Medical History Cardiac Medical History: 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, Hx Pulmonary Embolism Neurological Medical History: Reports: Hx Migraine Musculoskeletal Medical History: Reports Hx Muscle Spasm Past Surgical History: Reports: Hx Bowel Surgery - Lap lysis of adhesions, Hx Cholecystectomy, Hx Hysterectomy, Hx Orthopedic Surgery - back 2 - Immunizations Immunizations up to date: Yes Hx Diphtheria, Pertussis, Tetanus Vaccination: No Hx Pneumococcal Vaccination: 12/29/10 Review of Systems - Review of Systems Constitutional: No symptoms reported EENT: No symptoms reported Cardiovascular: No symptoms reported Respiratory: No symptoms reported Gastrointestinal: See HPI, Nausea, Vomiting Genitourinary: No symptoms reported Female Genitourinary: No symptoms reported Musculoskeletal: See HPI, Back pain, Other - Right Thigh pain Skin: No symptoms reported Hematologic/Lymphatic: No symptoms reported Neurological/Psychological: No symptoms reported -: Yes All other systems reviewed and negative Physical Exam - Vital signs Vitals: Temp Pulse Resp BP Pulse Ox 97.9 F 76 20 131/59 H 96 11/06/19 05:05 11/06/19 05:05 11/06/19 05:05 11/06/19 05:05 11/06/19 05:05 - Notes Notes: Physical Exam: General: Alert, appears well. HEENT: Normocephalic. Atraumatic. PERRL. Extraocular movements intact. Oropharynx clear. Neck: Supple. Non-tender. Respiratory: No respiratory distress. Clear and equal breath sounds bilaterally. Cardiovascular: Regular rate and rhythm. Abdominal: RLQ tenderness to palpation. No distension. Normal Bowel Sounds. Back: Paraspinal lumbar musculature tenderness with palpation. Extremities: Upper extremities: Normal inspection. Normal ROM. Lower extremities: No edema. Normal ROM. Right anterior thigh tenderness to palpation. Neurological: Normal cognition. AAOx4. Normal speech. Psychological: Normal affect. Normal Mood. Skin: Warm. Dry. Normal color. Course - Vital Signs Vital signs: Temp Pulse Resp BP Pulse Ox 98.7 F 80 18 137/77 H 99 11/06/19 10:21 11/06/19 10:21 11/06/19 10:21 11/06/19 10:21 11/06/19 10:21 - Laboratory Result Diagrams: 11/06/19 05:20 11/06/19 05:20 Laboratory results interpreted by me: 11/06/19 11/06/19 11/06/19 05:20 05:20 09:30 Lymph % (Auto) 48.0 H Seg Neutrophils % 35.6 L Carbon Dioxide 21 L Urine Blood SMALL H Discharge - Discharge Clinical Impression: Right thigh pain Nausea and vomiting Qualifiers: Vomiting type: unspecified Vomiting Intractability: non-intractable Qualified Code(s): R11.2 - Nausea with vomiting, unspecified Low back pain Qualifiers: Chronicity: chronic Back pain laterality: bilateral Sciatica presence: without sciatica Qualified Code(s): M54.5 - Low back pain; G89.29 - Other chronic pain Condition: Stable Disposition: HOME, SELF-CARE Additional Instructions: Nausea or Vomiting, Nonspecific: Vomiting (or nausea without vomiting) can be caused by many different problems. Of course, it can mean that something's wrong with the stomach, such as "stomach flu," ulcers, or inflammation. But it can also be a symptom of a problem that has nothing to do with the stomach or intestines. Vomiting is common with severe headaches, earaches, and tonsillitis. We see it with pneumonia or heart attacks. Drugs can cause nausea. Many abdominal problems cause vomiting; for example, gallstones, kidney stones, pancreatitis, and intestinal obstruction (blocked bowels). In most cases, curing the vomiting depends on fixing the problem that caused it. For temporary relief, we may use an anti-nausea medicine. For home use, we can prescribe suppositories, chewable pills, pills that dissolve in the mouth, or liquid anti-nausea drugs. If the vomiting seems to be caused by a problem in the stomach, acid-suppressing drugs may be prescribed as well. It's important to avoid dehydration. Sip clear liquids. Take increasing amounts of fluid over the first 24 hours. Then start small amounts of bland foods (such as dry toast, applesauce, mashed potato). Avoid aspirin, tobacco, and alcohol. Gradually resume your usual diet. If the vomiting worsens, if the problem that's making you vomit worsens, or if there's evidence of bleeding in the stomach (such as black, tarry stool, bloody or black vomit, or lightheadedness), you should return immediately. Call your doctor if you aren't improved in 24 to 36 hours. Take the medication as prescribed for nausea if needed. Drink plenty of cool clear liquids throughout the day to stay hydrated. Follow-up with your doctor to discuss further evaluation of your chronic right thigh pain. RETURN TO THE EMERGENCY ROOM IF ANY NEW OR WORSENING SYMPTOMS. Prescriptions: Metoclopramide HCl [Reglan 10 mg Tablet] 10 mg PO ASDIR PRN #15 tablet PRN Reason: Referrals: ISELA TAM MD [Primary Care Provider] - Follow up as needed Scribe Attestation: 11/06/19 08:48 I personally performed the services described in the documentation, reviewed and edited the documentation which was dictated to the scribe in my presence, and it accurately records my words and actions. I personally performed the services described in the documentation, reviewed and edited the documentation which was dictated to the scribe in my presence, and it accurately records my words and actions.
== END 2019-11-06 10:21 | disposition home or self-care (01) ==
LOC: ER 04:58
DX: M79.604 Pain in right leg (principal); R11.2 Nausea with vomiting, unspecified; R19.7 Diarrhea, unspecified; G89.29 Other chronic pain; M54.5 Low back pain; Z88.6 Allergy status to analgesic agent; Z86.718 Personal history of other venous thrombosis and embolism; Z86.711 Personal history of pulmonary embolism; Z90.49 Acquired absence of other specified parts of digestive tract; Z90.710 Acquired absence of both cervix and uterus
CPT/HCPCS: 99284; 96361; 96374; 96375; 36415; 85025; 80053; 81001; 85379; J1885; J2765; J7121; J7030

== ENCOUNTER 2019-11-07 15:44 | Emergency (ER) | payer MEDICARE, MEDICAID ==
[2019-11-07] MEDS ORDERED: OXYCODONE-ACETAMINOPHEN 5-325 MG TABLET PO ONE ×2 (16:39→18:03)
[2019-11-07] MEDS ORDERED: KETOROLAC TROMETHAMINE 60 MG/2 ML SDV IM ONE (16:39)
--- NOTE | 2019-11-07 16:41 | ER Document Report ---
ED Medical Screen (RME) - General Chief Complaint: Fall Injury Stated Complaint: FALL INJURY/BACK PAIN Time Seen by Provider: 11/07/19 16:33 Primary Care Provider: ISELA TAM MD [Primary Care Provider] - Follow up as needed Mode of Arrival: Wheelchair Information source: Patient Notes: 59-year-old female presents the emergency department chief complaint of fall injury. Patient reports she fell backwards after her leg gave out and she fell directly onto her back. Patient reports pain in the lumbar spine area. She denies any loss of control of bowel or bladder, denies any saddle anesthesia. Patient appears to be in obvious distress in triage. I have greeted and performed a rapid initial assessment of this patient. A comprehensive ED assessment and evaluation of the patient, analysis of test results and completion of the medical decision making process will be conducted by additional ED providers. I have specifically instructed the patient or family members with the patient to immediately return to any nursing staff should anything change in the patient's condition or with their chief complaint. TRAVEL OUTSIDE OF THE [place] IN LAST 30 DAYS: No - Related Data Allergies/Adverse Reactions: fentanyl Allergy (Verified 11/06/19 05:12) morphine Allergy (Verified 11/06/19 05:12) sumatriptan [From Imitrex] Allergy (Verified 11/06/19 05:12) sumatriptan succinate [From Imitrex] Allergy (Verified 11/06/19 05:12) Past Medical History - Social History Family history: None - Past Medical History Cardiac Medical History: 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, Hx Pulmonary Embolism Denies: Hx Atrial Fibrillation, Hx Congestive Heart Failure, Hx Coronary Artery Disease, Hx Heart Attack, Hx Hypercholesterolemia, Hx Hypertension, Hx Peripheral Vascular Disease, Hx Heart Murmur Neurological Medical History: Reports: Hx Migraine Renal/ Medical History: Denies: Hx Peritoneal Dialysis Musculoskeltal Medical History: Reports Hx Muscle Spasm Past Surgical History: Reports: Hx Bowel Surgery - Lap lysis of adhesions, Hx Cholecystectomy, Hx Hysterectomy, Hx Orthopedic Surgery - back 2, Other - Back surgery - Immunizations Immunizations up to date: Yes Hx Diphtheria, Pertussis, Tetanus Vaccination: No Physical Exam - Vital signs Vitals: Temp Pulse Resp BP Pulse Ox 98.1 F 62 20 130/56 H 96 11/07/19 16:14 11/07/19 16:14 11/07/19 16:14 11/07/19 16:14 11/07/19 16:14 Course - Vital Signs Vital signs: Temp Pulse Resp BP Pulse Ox 98.1 F 62 20 130/56 H 96 11/07/19 16:14 11/07/19 16:14 11/07/19 16:14 11/07/19 16:14 11/07/19 16:14 Doctor's Discharge - Discharge Referrals: ISELA TAM MD [Primary Care Provider] - Follow up as needed
[2019-11-07] MEDS ORDERED: PROMETHAZINE HCL INJ 25 MG/1 ML VIAL IM ONE (17:11)
--- NOTE | 2019-11-07 17:35 | RADIOLOGY REPORT (SQ) ---
EXAM DESCRIPTION: CT LUMBAR SPINE WITHOUT COMPLETED DATE/TIME: 11/07/2019 5:01 pm REASON FOR STUDY: low back pain, trauma/fall COMPARISON: Lumbar spine x-ray 05/08/2018. CT abdomen and pelvis 05/04/2018. TECHNIQUE: Axial images acquired through the lumbar spine without intravenous contrast. Images revi ewed with lung, soft tissue and bone windows. Reconstructed coronal and sagittal MPR images reviewed . All images stored on PACS. All CT scanners at this facility use dose modulation, iterative reconstruction, and/or weight based d osing when appropriate to reduce radiation dose to as low as reasonably achievable (ALARA). [facility]: Dose Right [facility]: CareDose [facility]: Dose Right [facility]: Teradose 4D [facility]: [employer] RADIATION DOSE: mGy. LIMITATIONS: None. FINDINGS: SEGMENTATION: Normal. No transitional anatomy. ALIGNMENT: Normal. VERTEBRAL BODIES: No fractures. No dislocation. No acute findings. DISCS: Mild multilevel degenerative disc disease. PEDICLES, TRANSVERSE PROCESSES: No fractures. No dislocation. No acute findings. FACETS, POSTERIOR ELEMENTS: No fractures. No dislocation. Multilevel facet arthropathy is noted. HARDWARE: None in the spine. VISUALIZED RIBS: No fractures. SOFT TISSUES: No acute finding in adjacent soft tissues. OTHER: Degenerative changes at the visualized bilateral sacroiliac joints. IMPRESSION: No acute fracture at the lumbar spine. Degenerative changes. TECHNICAL DOCUMENTATION: JOB ID: [id number] OH-64 Quality ID # [id number]: Final reports with documentation of one or more dose reduction techniques (e.g., Au tomated exposure control, adjustment of the mA and/or kV according to patient size, use of iterative reconstruction technique) 2010 [employer]- All Rights Reserved Reading location - IP/workstation name: [email or web address]
--- NOTE | 2019-11-07 17:42 | ER Document Report ---
HPI - HPI Time Seen by Provider: 11/07/19 16:33 Onset: Just prior to arrival Onset/Duration: Sudden Quality of pain: Achy Severity: Severe Pain Level: 5 Context: 59-year-old female with history of chronic leg pain, back surgery presents emergency department with complaints of falling and landing on her back approximately an hour and half prior to arrival. She reports she was walking up the ramp to her house when she missed the side rail and fell landing on her back . No change in LOC, did not hit her head. Patient reports she has chronic right leg pain with numbness and tingling in her lower extremities. She reports that she has been told it is due to her muscles. She has been to physical therapy for this. She denies urinary or bowel bowel incontinence/r etention, denies saddle anesthesia. Patient is vomiting. She reports when she is in severe pain she vomits. Denies fever diarrhea. Associated Symptoms: Vomiting Exacerbated by: Movement Relieved by: Denies Similar symptoms previously: No Recently seen / treated by doctor: Yes - REPRODUCTIVE Reproductive: DENIES: : - MUSCULOSKELETAL Musculoskeletal: REPORTS: Extremity pain - right hip/leg Past Medical History - General Information source: Patient Last Menstrual Period: hyst - Social History Smoking Status: Never Smoker Frequency of alcohol use: None Drug Abuse: None Family History: None, CAD, DM, Malignancy, Other - copd Patient has suicidal ideation: No Patient has homicidal ideation: No - Past Medical History Cardiac Medical History: 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, Hx Pulmonary Embolism Denies: Hx Atrial Fibrillation, Hx Congestive Heart Failure, Hx Coronary Artery Disease, Hx Heart Attack, Hx Hypercholesterolemia, Hx Hypertension, Hx Peripheral Vascular Disease, Hx Heart Murmur Neurological Medical History: Reports: Hx Migraine Renal/ Medical History: Denies: Hx Peritoneal Dialysis Musculoskeletal Medical History: Reports Hx Muscle Spasm Past Surgical History: Reports: Hx Bowel Surgery - Lap lysis of adhesions, Hx Cholecystectomy, Hx Hysterectomy, Hx Orthopedic Surgery - back 2/left leg, Other - Back surgery - Immunizations Immunizations up to date: Yes Hx Diphtheria, Pertussis, Tetanus Vaccination: No Hx Pneumococcal Vaccination: 12/29/10 Vertical Provider Document - CONSTITUTIONAL Agree With Documented VS: Yes Exam Limitations: No Limitations General Appearance: WD/WN, No Apparent Distress - INFECTION CONTROL TRAVEL OUTSIDE OF THE [place] IN LAST 30 DAYS: No - HEENT HEENT: Atraumatic, Normocephalic - NECK Neck: Normal Inspection, Supple. negative: Lymphadenopathy-Left, Lymphadenopathy-Right - RESPIRATORY Respiratory: Breath Sounds Normal, No Respiratory Distress, Chest Non-Tender - CARDIOVASCULAR Cardiovascular: Regular Rate, Regular Rhythm - BACK Back: Normal Inspection - No obvious deformity good distal movement and sensation no erythema no swelling no warmth no weakness complains of low back pain, right paraspinal - MUSCULOSKELETAL/EXTREMETIES Musculoskeletal/Extremeties: MAJUAN RAMON FROM - NEURO Level of Consciousness: Awake, Alert, Appropriate Motor/Sensory: No Motor Deficit - DERM Integumentary: Warm, Dry Adult Front & Back Diagram: 1 - pt reports pain, no ecchymosis, no erythema no swelling no warmth good distal movement sensation Course - Re-evaluation Re-evalutation: 11/07/19 17:[address] 11/07/19 16:38 IMPRESSION: No acute fracture at the lumbar spine. Degenerative changes. 11/07/19 18:14 X-ray negative for an acute fracture. Patient was instructed on x-ray results. Patient has quit vomiting. She is ready for her Percocet ordered from [facility]. She was instructed on the importance of monitoring her symptoms take Motrin as indicated and take the Reglan that was prescribed to her yesterday for the nausea. She reports she does not live here she lives in [place]. She is just visiting her mother. She reports she will be flying back within the next 2 weeks. Low suspicion for any meningitis, fracture, expanding/ruptured AAA, cauda equina syndrome, epidural mass lesion/abscess, herniated disc causing severe spinal stenosis, or other systemic infection at this time. Patient is aware that this condition can change from initial presentation and that she needs monitor symptoms closely for any acute changes. She was instructed on the importance of monitoring her symptoms return to the ED for concerns. She verbalized understanding to all instructions - Vital Signs Vital signs: Temp Pulse Resp BP Pulse Ox 98.1 F 62 20 130/56 H 96 11/07/19 16:14 11/07/19 16:14 11/07/19 16:14 11/07/19 16:14 11/07/19 16:14 - Diagnostic Test Radiology reviewed: Reports reviewed Discharge - Discharge Clinical Impression: Low back pain Nausea and vomiting Qualifiers: Vomiting type: unspecified Vomiting Intractability: non-intractable Qualified Code(s): R11.2 - Nausea with vomiting, unspecified Condition: Stable Disposition: HOME, SELF-CARE Instructions: Antinausea Medication ([facility]), Low Back Pain ([facility]), Vomiting ([facility]) Additional Instructions: *You have been evaluated for back pain *Your x-rays were negative for any acute fracture *Take ibuprofen as prescribed pain *Take the reglan as prescribed by Dr Jeffers yesterday for nausea/vomiting *Rest/Ice packs to your back *Follow up with your primary care provider within 1 week or when you return to [place] *Return to ED for worsening condition, changes, needs, worsening symptoms, concerns Prescriptions: Ibuprofen [Motrin 800 mg Tablet] 800 mg PO TID #20 tablet Forms: Elevated Blood Pressure Referrals: ISELA TAM MD [Primary Care Provider] - Follow up in 1 week
[2019-11-07 18:16] VITALS: BP 132/66
== END 2019-11-07 18:14 | disposition home or self-care (01) ==
LOC: ER 15:44
DX: M54.5 Low back pain (principal); R11.2 Nausea with vomiting, unspecified; M79.604 Pain in right leg; G89.29 Other chronic pain; R20.0 Anesthesia of skin; M25.551 Pain in right hip
CPT/HCPCS: 72131; J1885; A9270; J2550; 96372; 99284

== ENCOUNTER 2019-11-08 18:34 | Emergency (ER) | payer MEDICARE, MEDICAID ==
--- NOTE | 2019-11-08 20:47 | ER Document Report ---
ED General - General Chief Complaint: Leg Swelling Stated Complaint: LEG SWELLING Time Seen by Provider: 11/08/19 19:47 Notes: 59-year-old woman presents to the emergency department with a complaint of right leg pain. She has had a history of a back surgery and sciatica involving the right leg. She states that the pain has worsened over the past 3 days and that she has nothing other than Tylenol to take for the pain. The pain is so severe that she has become nauseated and has had vomiting episodes. She denies any new injury and is here primarily due to the pain in her right leg. Patient has been seen in the emergency department on multiple occasions. With the right thigh pain and back pain. TRAVEL OUTSIDE OF THE [place] IN LAST 30 DAYS: No - Related Data Allergies/Adverse Reactions: fentanyl Allergy (Verified 11/06/19 05:12) morphine Allergy (Verified 11/06/19 05:12) sumatriptan [From Imitrex] Allergy (Verified 11/06/19 05:12) sumatriptan succinate [From Imitrex] Allergy (Verified 11/06/19 05:12) Past Medical History - Social History Smoking Status: Unknown if Ever Smoked Family History: None, CAD, DM, Malignancy, Other - copd Patient has suicidal ideation: No Patient has homicidal ideation: No - Past Medical History Cardiac Medical History: 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, Hx Pulmonary Embolism Denies: Hx Atrial Fibrillation, Hx Congestive Heart Failure, Hx Coronary Artery Disease, Hx Heart Attack, Hx Hypercholesterolemia, Hx Hypertension, Hx Peripheral Vascular Disease, Hx Heart Murmur Neurological Medical History: Reports: Hx Migraine Renal/ Medical History: Denies: Hx Peritoneal Dialysis Musculoskeletal Medical History: Reports Hx Muscle Spasm Past Surgical History: Reports: Hx Bowel Surgery - Lap lysis of adhesions, Hx Cholecystectomy, Hx Hysterectomy, Hx Orthopedic Surgery - back 2/left leg, Other - Back surgery - Immunizations Immunizations up to date: Yes Hx Diphtheria, Pertussis, Tetanus Vaccination: No Hx Pneumococcal Vaccination: 12/29/10 Review of Systems - Review of Systems Notes: Constitutional: Negative for fever. HENT: Negative for sore throat. Eyes: Negative for visual changes. Cardiovascular: Negative for chest pain. Respiratory: Negative for shortness of breath. Gastrointestinal: + Nausea and vomiting, no diarrhea. Genitourinary: Negative for dysuria. Musculoskeletal: + Right leg pain Skin: Negative for rash. Neurological: Negative for headaches, weakness or numbness. 10 point ROS negative except as marked above and in HPI. Physical Exam - Vital signs Vitals: Temp Pulse Resp BP Pulse Ox 97.8 F 65 20 135/78 H 96 11/08/19 19:02 11/08/19 19:02 11/08/19 19:02 11/08/19 19:02 11/08/19 19:02 - Notes Notes: PHYSICAL EXAMINATION: Physical Exam: General: Well-nourished well-developed 59-year-old woman in moderate distress secondary to right leg pain. HEENT: NC/AT, pupils equal round and reactive to light, MM moist,nares clear, a irway patent, oropharynx clear Neck: supple, no adenopathy, no masses. Lungs: clear, no wheezing, no rales no rhonchi CVS: Regular, rate, and rhythm no murmur gallop or rub Abdomen: Soft, active, nontender, no masses, no hepatosplenomegaly Ext: Bilateral edema in the lower extremities, good movement in the toes and feet bilaterally with good pulses, unable to lift the right leg. Neuro: Alert and responsive, moving all 4 extremities on command, cranial nerves intact. Skin: Intact no open lesions, no rash Course - Re-evaluation Re-evalutation: 11/08/19 22:59 Patient refused a Lorazepam part of her treatment. States that it does nothing for her. Also Neurontin and steroids have not been useful in the past according to the patient. She states that she would like to be discharged home and can rest in her own bed. I will give her a prescription for medicines for nausea at the time of discharge. - Vital Signs Vital signs: Temp Pulse Resp BP Pulse Ox 97.8 F 65 20 135/78 H 96 11/08/19 19:02 11/08/19 19:02 11/08/19 19:02 11/08/19 19:02 11/08/19 19:02 - Laboratory Result Diagrams: 11/08/19 21:35 11/08/19 21:35 Laboratory results interpreted by me: 11/08/19 21:35 Eos % (Auto) 6.3 H I have reviewed laboratory data and used this information for the treatment decisions regarding the patient. Discharge - Discharge Clinical Impression: Right thigh pain Sciatica Qualifiers: Laterality: right Qualified Code(s): M54.31 - Sciatica, right side Nausea and vomiting Qualifiers: Vomiting type: unspecified Vomiting Intractability: unspecified Qualified Code(s): R11.2 - Nausea with vomiting, unspecified Condition: Good Disposition: HOME, SELF-CARE Instructions: Vomiting ([facility]), Antinausea Medication ([facility]) Additional Instructions: Please follow-up with your doctor regarding chronic right thigh pain. It would also be imperative to have a repeat MRI of your lumbosacral spine to evaluate closely the nerve root involvement on the right side. You are being discharged at your request from the emergency department. If you decide you want to come back for further evaluation and treatment you are more than welcome. Prescriptions: Ondansetron [Zofran Odt 4 mg Tablet] 1 - 2 tab PO Q4H PRN #15 tab.rapdis PRN Reason: For Nausea/Vomiting
[2019-11-08] MEDS ORDERED: DEXAMETHASONE SOD PHOS INJ 10 MG/1 ML VIAL IV ONE (20:50)
[2019-11-08] MEDS ORDERED: NORMAL SALINE 1000 ML 1,000 ML IV ONE (20:50)
[2019-11-08] MEDS ORDERED: KETOROLAC TROMETHAMINE INJ/PF 30 MG/1 ML SDV IV ONE (20:52)
[2019-11-08] MEDS ORDERED: LORAZEPAM INJ 2 MG/1 ML VIAL IV ONE (20:53)
[2019-11-08 21:44] LABS: ABSOLUTE EOSINOPHILS # (AUTO) 0.4 10^3/uL (0.0-0.6); ABSOLUTE LYMPHOCYTES (AUTO) 2.4 10^3/uL (0.5-4.7); ABSOLUTE MONOCYTES (AUTO) 0.5 10^3/uL (0.1-1.4); ABSOLUTE NEUT (AUTO) 3.1 10^3/uL (1.7-8.2); BASOPHILS % (AUTO) 0.7 % (0-2); EOSINOPHILS % (AUTO) 6.3 % (0-6); HEMATOCRIT 42.1 % (36.0-47.0); HEMOGLOBIN 13.9 g/dL (12.0-15.5); LYMPHOCYTES % (AUTO) 37.3 % (13-45); MEAN CORPUSCULAR VOLUME 94 fl (80-97); MONOCYTES % (AUTO) 7.9 % (3-13); PLATELET COUNT 263 10^3/uL (150-450); RED BLOOD COUNT 4.48 10^6/uL (3.72-5.28); RED CELL DISTRIBUTION WIDTH 13.6 % (11.5-14.0); SEGMENTED NEUTROPHILS % (AUTO) 47.8 % (42-78); TOTAL CELLS COUNTED % (AUTO) 100 %; WHITE BLOOD COUNT 6.5 10^3/uL (4.0-10.5)
[2019-11-08 22:01] LABS: ALBUMIN 3.8 g/dL (3.5-5.0); ALKALINE PHOSPHATASE 115 U/L (38-126); ANION GAP 6 (5-19); ASPARTATE AMINO TRANSFERASE 30 U/L (14-36); BILIRUBIN,TOTAL 0.3 mg/dL (0.2-1.3); BLOOD UREA NITROGEN 16 mg/dL (7-20); CALCIUM 8.7 mg/dL (8.4-10.2); CARBON DIOXIDE 27 mmol/L (22-30); CHLORIDE 106 mmol/L (98-107); GLUCOSE 100 mg/dL (75-110); POTASSIUM 3.9 mmol/L (3.6-5.0); TOTAL PROTEIN 6.8 g/dL (6.3-8.2)
[2019-11-08] MEDS ORDERED: ONDANSETRON HCL INJ/PF 4 MG/2 ML SDV IV ONE (22:04)
[2019-11-08 23:23] VITALS: BP 133/64
== END 2019-11-08 23:23 | disposition home or self-care (01) ==
LOC: ER 18:34
DX: M54.31 Sciatica, right side (principal); R11.2 Nausea with vomiting, unspecified; R60.0 Localized edema; Z88.6 Allergy status to analgesic agent; Z88.5 Allergy status to narcotic agent
CPT/HCPCS: 36415; 85025; 80053; J1885; J2405; J7030; J1100; 96361; 96374; 96375; 99283

== ENCOUNTER 2019-11-11 01:10 | Emergency (ER) | payer MEDICARE, MEDICAID ==
[2019-11-11 01:57] LABS: ABSOLUTE LYMPHOCYTES (AUTO) 3.1 10^3/uL (0.5-4.7); ABSOLUTE MONOCYTES (AUTO) 0.7 10^3/uL (0.1-1.4); BASOPHILS % (AUTO) 0.4 % (0-2); EOSINOPHILS % (AUTO) 0.2 % (0-6); HEMATOCRIT 38.2 % (36.0-47.0); HEMOGLOBIN 12.8 g/dL (12.0-15.5); LYMPHOCYTES % (AUTO) 31.4 % (13-45); MEAN CORPUSCULAR HEMOGLOBIN 30.9 pg (27.0-33.4); MEAN CORPUSCULAR HGB CONC 33.4 g/dL (32.0-36.0); MEAN CORPUSCULAR VOLUME 93 fl (80-97); MONOCYTES % (AUTO) 7.2 % (3-13); PLATELET COUNT 284 10^3/uL (150-450); RED BLOOD COUNT 4.13 10^6/uL (3.72-5.28); RED CELL DISTRIBUTION WIDTH 14.1 % (11.5-14.0); SEGMENTED NEUTROPHILS % (AUTO) 60.8 % (42-78); TOTAL CELLS COUNTED % (AUTO) 100 %; WHITE BLOOD COUNT 9.9 10^3/uL (4.0-10.5)
--- NOTE | 2019-11-11 02:08 | RADIOLOGY REPORT (SQ) ---
EXAM DESCRIPTION: XR CHEST 2 VIEWS COMPLETED DATE/TME: 11/11/2019 00:00 CLINICAL HISTORY: 59 years, Female, chest tightness COMPARISON: None. NUMBER OF VIEWS: 2 TECHNIQUE: LIMITATIONS: None. FINDINGS: Cardiomediastinal silhouette is prominent. The lungs are grossly clear with mild chronic change. No consolidation or overt edema. No effusion or pneumothorax IMPRESSION: Presumed chronic change copyright 2011 [employer]- All Rights Reserved
[2019-11-11 02:15] LABS: ALBUMIN 3.7 g/dL (3.5-5.0); ALKALINE PHOSPHATASE 108 U/L (38-126); ANION GAP 10 (5-19); ASPARTATE AMINO TRANSFERASE 22 U/L (14-36); BILIRUBIN,DIRECT 0.3 mg/dL (0.0-0.4); BILIRUBIN,TOTAL 0.3 mg/dL (0.2-1.3); BLOOD UREA NITROGEN 21 mg/dL (7-20); CALCIUM 8.4 mg/dL (8.4-10.2); CARBON DIOXIDE 26 mmol/L (22-30); CHLORIDE 105 mmol/L (98-107); CREATINE KINASE 80 U/L (30-135); GLUCOSE 134 mg/dL (75-110); POTASSIUM 3.4 mmol/L (3.6-5.0); TOTAL PROTEIN 6.8 g/dL (6.3-8.2)
[2019-11-11 02:22] LABS: CREATINE KINASE MB 1.86 ng/mL (<4.55)
[2019-11-11 02:23] LABS: TROPONIN I < 0.012 ng/mL
[2019-11-11] MEDS ORDERED: ONDANSETRON HCL INJ/PF 4 MG/2 ML SDV IV ONE ×2 (05:12→09:15)
[2019-11-11] MEDS ORDERED: IBUPROFEN 600 MG TABLET PO ONE (06:41)
--- NOTE | 2019-11-11 06:41 | ER Document Report ---
ED General - General Mode of Arrival: Ambulatory Information source: Patient TRAVEL OUTSIDE OF THE U.S. IN LAST 30 DAYS: No <KARIN LARA - Last Filed: 11/11/19 08:07> <ROWENA CANCHOLA - Last Filed: 11/11/19 11:06> - General Chief Complaint: Chest Pain Stated Complaint: LEG PAIN NAUSEA Time Seen by Provider: 11/11/19 04:50 Primary Care Provider: ISELA TAM MD [ACTIVE STAFF] - Follow up in 3-5 days Notes: 59-year-old female patient presenting to the emergency department chief complain t of chest tightness with nausea and lower extremity pain and swelling. Patient reports she saw her primary care provider yesterday. She states the chest tightness started after she saw him. She states that sometimes the tightness radiates into her left shoulder and left arm. She denies any shortness of breath. She does report a history of a DVT in her left lower extremity, she is not on any anticoagulation therapy. Her primary care provider is Dr. Tam. She reports history of DVT, hysterectomy, laminectomy and cholecystectomy, denies any heart disease, hypertension or diabetes. (KARIN LARA) - Related Data Allergies/Adverse Reactions: fentanyl Allergy (Verified 11/11/19 01:23) morphine Allergy (Verified 11/11/19 01:23) sumatriptan [From Imitrex] Allergy (Verified 11/11/19 01:23) sumatriptan succinate [From Imitrex] Allergy (Verified 11/11/19 01:23) Past Medical History - General Information source: Patient - Social History Smoking Status: Never Smoker Chew tobacco use (# tins/day): No Frequency of alcohol use: None Drug Abuse: None Family History: None, CAD, DM, Malignancy, Other Patient has suicidal ideation: No Patient has homicidal ideation: No - Past Medical History Cardiac Medical History: 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, Hx Pulmonary Embolism Denies: Hx Atrial Fibrillation, Hx Congestive Heart Failure, Hx Coronary Artery Disease, Hx Heart Attack, Hx Hypercholesterolemia, Hx Hypertension, Hx Peripheral Vascular Disease, Hx Heart Murmur Neurological Medical History: Reports: Hx Migraine Renal/ Medical History: Denies: Hx Peritoneal Dialysis Musculoskeletal Medical History: Reports Hx Muscle Spasm Past Surgical History: Reports: Hx Bowel Surgery - Lap lysis of adhesions, Hx Cholecystectomy, Hx Hysterectomy, Hx Orthopedic Surgery - back 2/left leg, Other - Back surgery - Immunizations Immunizations up to date: Yes Hx Diphtheria, Pertussis, Tetanus Vaccination: No Hx Pneumococcal Vaccination: 12/29/10 <KARIN LARA - Last Filed: 11/11/19 08:07> Review of Systems - Review of Systems Cardiovascular: See HPI Respiratory: See HPI Gastrointestinal: See HPI Musculoskeletal: See HPI -: Yes All other systems reviewed and negative <KARIN LARA - Last Filed: 11/11/19 08:07> Physical Exam <KARIN LARA - Last Filed: 11/11/19 08:07> - Vital signs Vitals: Temp Pulse Resp BP Pulse Ox 97.5 F 70 18 113/49 L 94 11/11/19 01:20 11/11/19 01:20 11/11/19 01:20 11/11/19 01:20 11/11/19 01:20 - Notes Notes: PHYSICAL EXAMINATION: GENERAL: Well-appearing, well-nourished and in no acute distress. HEAD: Atraumatic, normocephalic. EYES: Pupils equal round and reactive to light, extraocular movements intact, conjunctiva are normal. ENT: Nares patent, oropharynx clear without exudates. Moist mucous membranes. NECK: Normal range of motion, supple without lymphadenopathy LUNGS: Breath sounds clear to auscultation bilaterally and equal. No wheezes rales or rhonchi. HEART: Regular rate and rhythm without murmurs ABDOMEN: Soft, nontender, nondistended abdomen. No guarding, no rebound. No masses appreciated. Female : deferred Musculoskeletal: Normal range of motion, +edema to B/L LE. Strong dorsalis pedis pulse bilaterally. No cyanosis. NEUROLOGICAL: Cranial nerves grossly intact. Normal speech. Normal sensory, motor exams PSYCH: Normal mood, normal affect. SKIN: Warm, Dry, normal turgor, no rashes or lesions noted. (KARIN LARA) Course - Laboratory Result Diagrams: 11/11/19 01:35 11/11/19 01:35 <KARIN LARA - Last Filed: 11/11/19 08:07> - Laboratory Result Diagrams: 11/11/19 01:35 11/11/19 01:35 <ROWENA CANCHOLA M - Last Filed: 11/11/19 11:06> - Re-evaluation Re-evalutation: Patient appears well, nontoxic. Vital signs within normal limits. EKG was reviewed by me shows a sinus rhythm, rate of 70, QTc 415, normal axis, no ST segment elevations or depressions. Troponin negative. Patient is in need of bilateral lower extremity venous Doppler. This will be ordered and patient will stay until the morning when the Doppler tech is available. Patient currently denies any shortness of breath. (KARIN LARA) 11/11/19 8:22 I assumed care of patient from nurse practitioner Karin Lara. Patient came in last night with complaints of chest tightness and bilateral leg swelling with bilateral leg pain. She states that she has significantly bad leg pain. She states that when she has the leg pain she has nausea and vomiting. She states she was seen by her primary care physician Dr. Tam yesterday and prescribed Percocet. She took a Percocet last night and it did help her pain but she awoke in the middle of the night with worsening pain. She states when she woke with worsening pain and her leg seem to be more swollen and she had chest pain she decided to come to the emergency department. She does have a remote history of a DVT. She is not currently on any sort of blood thinner. Dr. Tam was consulted but he would like for her to have completion of her Doppler studies for both legs as well as a CTA. This is what is pending at time of turnover. NICO Lara and I performed a bedside handoff. My exam: Constitutional: alert,oriented, in no acute distress Cardiac: Regular rate and rhythm, no murmurs, rubs, gallops Pulmonology: Clear to auscultation bilaterally, no wheezes, rhonchi, rales Abdomen: Soft nontender Lower extremity: Bilateral legs with nonpitting edema. There appears to be some varicosities in the lower legs as well. There is no erythema or warmth to the legs. There is no palpable cords. Patient has pain with palpation of bilateral legs. DP pulses are intact and equal. Psych: Normal affect, normal mood 10:45 AM: Progress: CTA negative for pulmonary embolism or aortic dissection. Noted that Doppler studies are negative for DVT. Rounded on patient and updated her about the information and stated that I would be following up with Dr. Tam. Spoke with Dr. Tam and he feels that she can be discharged safely home. She is to negative trending troponins very reassuring EKG and her pain is been controlled. She is not vomiting any longer. He agrees with plan for compression stockings. We did discuss her BNP level that is elevated at [address] Tam says he will follow in the office. She does not have evidence of acute CHF on chest x-ray and her vital signs have been stable although she has been mildly hypertensive today. I discussed the plan with the patient and she agrees with the plan. She states that she has plenty of Percocet and also h as Zofran at home. I have encouraged her to return if any worsening symptoms. She agrees with the plan. (ROWENA CANCHOLA) - Vital Signs Vital signs: Temp Pulse Resp BP Pulse Ox 98.0 F 70 18 141/85 H 98 11/11/19 09:33 11/11/19 01:20 11/11/19 09:28 11/11/19 09:28 11/11/19 09:28 - Laboratory Laboratory results interpreted by me: 11/11/19 11/11/19 11/11/19 01:35 01:35 01:35 RDW 14.1 H D-Dimer 0.62 H Potassium 3.4 L BUN 21 H Glucose 134 H NT-Pro-B Natriuret Pep 11/11/19 04:35 RDW D-Dimer Potassium BUN Glucose NT-Pro-B Natriuret Pep 1000 H Discharge <KARIN LARA - Last Filed: 11/11/19 08:07> <ROWENA CANCHOLA - Last Filed: 11/11/19 11:06> - Discharge Clinical Impression: Bilateral edema of lower extremity Chest pain Qualifiers: Chest pain type: unspecified Qualified Code(s): R07.9 - Chest pain, unspecified Condition: Stable Disposition: HOME, SELF-CARE Instructions: Dependent Edema ([facility]) Additional Instructions: Wear compression stockings during the day and take them off at night. Perform ankle pumps to help with edema. Continue Percocet prescribed by your PCP. Please call PCP for follow up appointment. You had a negative study for clots in your legs and lungs. Return if worsening symptoms. Prescriptions: Compr.stocking,Thigh,Reg,Large [Compression Thigh Stocking] 1 each [facility] DAILY #1 each Referrals: ISELA TAM MD [ACTIVE STAFF] - Follow up in 3-5 days
[2019-11-11] MEDS ORDERED: OXYCODONE-ACETAMINOPHEN 5-325 MG TABLET PO ONE (08:42)
--- NOTE | 2019-11-11 08:50 | RADIOLOGY REPORT (SQ) ---
EXAM DESCRIPTION: CTA CHEST COMPLETED DATE/TIME: 11/11/2019 8:37 am REASON FOR STUDY: chest pain, hx of DVT, elevated d-dimer 0.62, CREAT 0.90 COMPARISON: 07/24/2019 TECHNIQUE: CT scan of the chest performed using helical scanning technique with dynamic intravenous contrast injection. Images reviewed with lung, soft tissue and bone windows. Reconstructed coronal and sagittal MPR images reviewed. Additional 3 dimensional post-processing performed to develop Maximal Intensity Projection images (DE P). All images stored on PACS. All CT scanners at this facility use dose modulation, iterative reconstruction, and/or weight based d osing when appropriate to reduce radiation dose to as low as reasonably achievable (ALARA). [facility]: Dose Right [facility]: CareDose [facility]: Dose Right [facility]: Teradose 4D [facility]: Draftster CONTRAST TYPE AND DOSE: contrast/concentration: Isovue 350.00 mg/ml; Total Contrast Delivered: 75.0 ml; Total Saline Delivered: 75.0 ml Contrast bolus adequate for pulmonary arteries and aorta. RENAL FUNCTION: Creatinine 0.91 RADIATION DOSE: CT Rad equipment meets quality standard of care and radiation dose reduction techniq ues were employed. CTDIvol: 13.2 - 16.0 mGy. DLP: 584 mGy-cm. . LIMITATIONS: None. FINDINGS: LUNGS AND PLEURA: No masses, infiltrates, or pneumothorax. No pleural effusions or pleura l calcifications. AORTA AND GREAT VESSELS: No aneurysm. Contrast bolus not optimized for the aorta. HEART: No pericardial effusion. No significant coronary artery calcifications. Normal right to left ventricular ratio. PULMONARY ARTERIES: No emboli visualized in the main pulmonary arteries or the segmental branches. HILAR AND MEDIASTINAL STRUCTURES: No identified masses or abnormal nodes. HARDWARE: None in the chest. UPPER ABDOMEN: No significant findings. Limited exam. THYROID AND OTHER SOFT TISSUES: No masses. No adenopathy. BONES: No acute or significant finding. 3D MIPS: Confirm above findings. OTHER: No other significant finding. IMPRESSION: No evidence of pulmonary embolus or other acute intrathoracic finding. COMMENT: Quality ID # [id number]: Final reports with documentation of one or more dose reduction techniques (e.g., Automated exposure control, adjustment of the mA and/or kV according to patient size, use of iterative reconstruction technique) TECHNICAL DOCUMENTATION: JOB ID: [id number] 2010 [employer]- All Rights Reserved Reading location - IP/workstation name: [email or web address]
[2019-11-11] MEDS ORDERED: HYDROMORPHONE HCL INJ/PF 2 MG/ML AMPULE IV ONE (09:15)
--- NOTE | 2019-11-11 10:24 | RADIOLOGY REPORT (SQ) ---
EXAM DESCRIPTION: VENOUS BILATERAL LOWER COMPLETED DATE/TIME: 11/11/2019 10:16 am REASON FOR STUDY: BLE swelling/hx of DVT COMPARISON: 02/05/2019. TECHNIQUE: Dynamic and static pond scale and color images acquired of both lower extremity venous sy stems. Selected spectral images acquired with additional compression and augmentation maneuvers. Imag es stored on PACS. LIMITATIONS: None. FINDINGS: RIGHT LEG COMMON FEMORAL AND FEMORAL: Normal phasicity, compression and augmentation. No visualized echogenic m aterial on pond scale. No defects on color images. POPLITEAL: Normal compression and augmentation. No visualized echogenic material on pond scale. No de fects on color images. CALF VESSELS: Normal compression and augmentation. No visualized echogenic material on pond scale. No defects on color image. GSV AND SSV: Normal compression. No visualized echogenic material on pond scale. No defects on color images. ANY DEEP VENOUS INSUFFICIENCY: Not evaluated. ANY EVIDENCE OF POPLITEAL CYST: No. OTHER: No other significant finding. LEFT LEG COMMON FEMORAL AND FEMORAL: Normal phasicity, compression and augmentation. No visualized echogenic m aterial on pond scale. No defects on color images. POPLITEAL: Normal compression and augmentation. No visualized echogenic material on pond scale. No de fects on color images. CALF VESSELS: Normal compression and augmentation. No visualized echogenic material on pond scale. No defects on color images. GSV AND SSV: Normal compression. No visualized echogenic material on pond scale. No defects on color images. ANY DEEP VENOUS INSUFFICIENCY: Not evaluated. ANY EVIDENCE POPLITEAL CYST: No. OTHER: No other significant finding. IMPRESSION: NO EVIDENCE DVT OR SVT IN EITHER LEG. TECHNICAL DOCUMENTATION: JOB ID: [id number] 2010 [employer]- All Rights Reserved Reading location - IP/workstation name: [email or web address]
[2019-11-11 11:09] VITALS: BP 140/68
--- NOTE | 2019-11-12 09:05 | EKG REPORT ---
SEVERITY:- NORMAL ECG - SINUS RHYTHM : Confirmed by: Kirk Allen MD 12-Nov-2019 07:04:01
== END 2019-11-11 11:09 | disposition home or self-care (01) ==
LOC: ER 01:10
DX: R60.9 Edema, unspecified (principal); R07.9 Chest pain, unspecified; R11.0 Nausea; Z86.718 Personal history of other venous thrombosis and embolism; Z90.49 Acquired absence of other specified parts of digestive tract; Z90.710 Acquired absence of both cervix and uterus
CPT/HCPCS: 36415; 71046; 71275; 80053; 82550; 82553; 83880; 84484; 85025; 85379; 93005; 93010; 93970; 96374; 96375; 96376; 99285; J1170; J2405

== ENCOUNTER 2019-11-15 23:49 | Emergency (ER) | payer MEDICARE, MEDICAID ==
[2019-11-16] MEDS ORDERED: NORMAL SALINE 1000 ML 1,000 ML IV ONE (00:31)
[2019-11-16] MEDS ORDERED: METOCLOPRAMIDE HCL INJ/PF 10 MG/2 ML SDV IV ONE (00:33)
[2019-11-16] MEDS ORDERED: PROMETHAZINE HCL INJ 25 MG/1 ML VIAL IM ONE (00:38)
--- NOTE | 2019-11-16 01:21 | ER Document Report ---
ED General - General Chief Complaint: Nausea/Vomiting Stated Complaint: LEG SWELLING/VOMITING Time Seen by Provider: 11/16/19 00:08 TRAVEL OUTSIDE OF THE [place] IN LAST 30 DAYS: No - HPI Notes: Ms. Argueta is a 59-year-old female with a chief complaint of nausea/vomiting and lower extremity edema and associated left thigh pain. Patient has been seen in this emergency department with same presenting symptoms on multiple occasions including 2 visits within the past 10 days. She has had negative CT scan of abdomen and pelvis. She has had a negative CT angiogram of the chest. She has had negative venous Doppler studies both lower extremities. She also had a CT of the lumbar spine demonstrating advanced degenerative disease. She has a history of sciatica and intractable chronic pain. The patient comes back in [facility] stating that she is planning to return to the [facility] where she resides long-term. Her principal concern [facility] is that she has had vomiting that she is finding difficult to control. She says IM Phenergan has worked better than anything she is taken previously. She specifically comes in requesting this medication. She does not want further lab testing or imaging at this time. - Related Data Allergies/Adverse Reactions: fentanyl Allergy (Verified 11/16/19 00:05) morphine Allergy (Verified 11/16/19 00:05) sumatriptan [From Imitrex] Allergy (Verified 11/16/19 00:05) sumatriptan succinate [From Imitrex] Allergy (Verified 11/16/19 00:05) Past Medical History - General Information source: Parent, [facility] Records - Social History Smoking Status: Unknown if Ever Smoked Family History: None, CAD, DM, Malignancy, Other Patient has suicidal ideation: No Patient has homicidal ideation: No - Past Medical History Cardiac Medical History: 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, Hx Pulmonary Embolism Denies: Hx Atrial Fibrillation, Hx Congestive Heart Failure, Hx Coronary Artery Disease, Hx Heart Attack, Hx Hypercholesterolemia, Hx Hypertension, Hx Peripheral Vascular Disease, Hx Heart Murmur Neurological Medical History: Reports: Hx Migraine Renal/ Medical History: Denies: Hx Peritoneal Dialysis Musculoskeletal Medical History: Reports Hx Muscle Spasm Past Surgical History: Reports: Hx Bowel Surgery - Lap lysis of adhesions, Hx Cholecystectomy, Hx Hysterectomy, Hx Orthopedic Surgery - back 2/left leg, Other - Back surgery - Immunizations Immunizations up to date: Yes Hx Diphtheria, Pertussis, Tetanus Vaccination: No Hx Pneumococcal Vaccination: 12/29/10 Review of Systems - Review of Systems Notes: Constitutional: Negative for fever. HENT: Negative for sore throat. Eyes: Negative for visual changes. Cardiovascular: Negative for chest pain. Respiratory: Negative for shortness of breath. Gastrointestinal: As per HPI. Genitourinary: Negative for dysuria. Musculoskeletal: Chronic low back pain. Skin: Negative for rash. Neurological: Negative for headaches, weakness or numbness. 10 point ROS negative except as marked above and in HPI. Physical Exam - Vital signs Vitals: Temp Pulse Resp BP Pulse Ox 97.8 F 74 16 137/43 H 99 11/15/19 23:55 11/15/19 23:55 11/15/19 23:55 11/15/19 23:55 11/15/19 23:55 - Notes Notes: GENERAL: Well-developed well-nourished appearing in no acute distress. SKIN: Good turgor no rashes. HEAD: Normocephalic atraumatic. EYES: PERRLA. EOMI. Conjunctivae and sclerae clear. EARS: CANALS AND TMS CLEAR. NOSE: CLEAR. MOUTH: Moist mucosa. Good dentition. No stridor or edema. No drooling. NECK: Supple. No masses or thyromegaly. No adenopathy. Carotids 2+ without bruits. No JVD. BACK: Symmetrical without tenderness. CHEST: Respirations unlabored. Breath sounds clear and symmetrical. HEART: Regular rhythm. No murmur gallop or rub. ABDOMEN: Soft nontender without masses, organomegaly or rebound. Bowel sounds normally active. No bruits. GENITALIA: Deferred. EXTREMITIES: 3+ bilateral pretibial and pedal edema. No calf tenderness. Cap r efill less than 1.5 seconds. Dorsalis pedis and posterior tibial pulses 3+ and symmetrical. NEUROLOGICAL: GCS 15. Alert and oriented x3. Fluent speech. Cranial nerves II through XII intact. Sensorimotor and cerebellar normal. Normal tone. PSYCHIATRIC: Appropriate affect. Course - Re-evaluation Re-evalutation: 11/16/19 01:20 Patient was given 25 mg of IM Phenergan. She was observed here for approximately an hour and had resolution of nausea vomiting was able to tolerate p.o. fluids. She requested discharge and I recommended that she continue present medications and follow-up with her doctor in [place] as discussed. She understands that she may return here as needed for new or worsening symptoms. - Vital Signs Vital signs: Temp Pulse Resp BP Pulse Ox 97.8 F 74 16 137/43 H 99 11/15/19 23:55 11/15/19 23:55 11/15/19 23:55 11/15/19 23:55 11/15/19 23:55 Discharge - Discharge Clinical Impression: Bilateral edema of lower extremity Vomiting Qualifiers: Vomiting type: unspecified Vomiting Intractability: unspecified Nausea presence: with nausea Qualified Code(s): R11.2 - Nausea with vomiting, unspecified Condition: Stable Disposition: HOME, SELF-CARE Instructions: Antinausea Medication ([facility])
[2019-11-16 01:29] VITALS: BP 134/71
--- NOTE | 2019-11-16 06:11 | EKG REPORT ---
SEVERITY:- NORMAL ECG - SINUS RHYTHM : Confirmed by: Kirk Allen MD 16-Nov-2019 06:10:46
== END 2019-11-16 01:30 | disposition home or self-care (01) ==
LOC: ER 23:49
DX: R60.0 Localized edema (principal); R11.2 Nausea with vomiting, unspecified; M54.5 Low back pain; G89.29 Other chronic pain
CPT/HCPCS: 93005; 93010; J2550; 96372; 99284

== ENCOUNTER 2020-06-21 17:49 | Emergency (ER) | payer MEDICARE, MEDICAID ==
[2020-06-21] MEDS ORDERED: ONDANSETRON HCL INJ/PF 4 MG/2 ML SDV IV ONE (19:36)
[2020-06-21] MEDS ORDERED: NORMAL SALINE 1000 ML 1,000 ML IV ONE (19:36)
[2020-06-21] MEDS ORDERED: KETOROLAC TROMETHAMINE INJ/PF 30 MG/1 ML SDV IV ONE (19:36)
--- NOTE | 2020-06-21 19:44 | ER Document Report ---
ED Medical Screen (RME) - General Chief Complaint: Knee Pain Stated Complaint: KNEE PAIN Time Seen by Provider: 06/21/20 19:27 Primary Care Provider: ISELA TAM MD [Primary Care Provider] - Follow up as needed TRAVEL OUTSIDE OF THE [place].S. IN LAST 30 DAYS: No - HPI Notes: 06/21/20 19:39 60-year-old female presents to the emergency room for complaints of nausea, vomiting related to her history of IBS that is become progressively worse and she has not been able to keep down her Percocets for her left knee pain. Patient was supposed to have surgery on her left knee that is been hurting her for the last 4 months by her brother recently, so this has delayed surgery. Patient states she has had issues with gastritis and vomiting since she was a little girl, that when she typically has exacerbations of her abdominal symptoms where she cannot take her pain medication, she usually comes to the emergency room to get IV hydration and antibiotics. States she did take a Phenergan this morning but states that her knee pain was so severe that it caused her to have worsening nausea and vomiting. Denies any fevers or chills, shortness of breath, fever chills, headaches. Denies any trauma to her left knee I have greeted and performed a rapid initial assessment of this patient. A comprehensive ED assessment and evaluation of the patient, analysis of test results and completion of the medical decision making process will be conducted by additional ED providers. PHYSICAL EXAMINATION: GENERAL: Well-appearing, well-nourished and in mild distress NECK: Normal range of motion CV: s1, s2 regular LUNGS: No respiratory distress abd: generalized abd pain, no cva tenderness appreciated bilaterally. Musculoskeletal: Normal range of motion. tenderness to left knee on palpation NEUROLOGICAL: Normal speech, normal gait. SKIN: Warm, Dry, normal turgor, no rashes or lesions noted. 06/21/20 19:44 - Related Data Allergies/Adverse Reactions: fentanyl Allergy (Verified 11/16/19 00:05) morphine Allergy (Verified 11/16/19 00:05) sumatriptan [From Imitrex] Allergy (Verified 11/16/19 00:05) sumatriptan succinate [From Imitrex] Allergy (Verified 11/16/19 00:05) Past Medical History - Social History Chew tobacco use (# tins/day): No Frequency of alcohol use: None Drug Abuse: None Family history: None - Past Medical History Cardiac Medical History: 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, Hx Pulmonary Embolism Denies: Hx Atrial Fibrillation, Hx Congestive Heart Failure, Hx Coronary Artery Disease, Hx Heart Attack, Hx Hypercholesterolemia, Hx Hypertension, Hx Peripheral Vascular Disease, Hx Heart Murmur Neurological Medical History: Reports: Hx Migraine Renal/ Medical History: Denies: Hx Peritoneal Dialysis Musculoskeltal Medical History: Reports Hx Muscle Spasm Past Surgical History: Reports: Hx Bowel Surgery - Lap lysis of adhesions, Hx Cholecystectomy, Hx Hysterectomy, Hx Orthopedic Surgery - back 2/left leg, Other - Back surgery - Immunizations Immunizations up to date: Yes Hx Diphtheria, Pertussis, Tetanus Vaccination: No Physical Exam - Vital signs Vitals: Temp Pulse Resp BP Pulse Ox 98.3 F 82 16 133/52 H 96 06/21/20 18:00 06/21/20 18:00 06/21/20 18:00 06/21/20 18:00 06/21/20 18:00 Course - Vital Signs Vital signs: Temp Pulse Resp BP Pulse Ox 98.3 F 82 16 133/52 H 96 06/21/20 18:00 06/21/20 18:00 06/21/20 18:00 06/21/20 18:00 06/21/20 18:00 Doctor's Discharge - Discharge Referrals: ISELA TAM MD [Primary Care Provider] - Follow up as needed
--- NOTE | 2020-06-21 20:41 | RADIOLOGY REPORT (SQ) ---
EXAM DESCRIPTION: XR ABDOMEN SUPINE AND ERECT WITH CHEST (ABD ACUTE SERIES) 3 views COMPLETED DATE/TME: 06/21/2020 19:44 CLINICAL HISTORY: 60 years, Female, n/v/abdominal pain COMPARISON: None. NUMBER OF VIEWS: TECHNIQUE: LIMITATIONS: None. FINDINGS: No evidence of bowel obstruction. No free air. There is evidence of prior right-sided abdominal surgery. The chest is unremarkable. IMPRESSION: No acute finding. copyright 2010 [employer]- All Rights Reserved
[2020-06-22] MEDS ORDERED: KETOROLAC TROMETHAMINE INJ/PF 30 MG/1 ML SDV ONE (00:18)
[2020-06-22] MEDS ORDERED: ONDANSETRON HCL INJ/PF 4 MG/2 ML SDV ONE (00:18)
[2020-06-22 00:30] LABS: ABSOLUTE BASOPHILS # (AUTO) 0.1 10^3/uL (0.0-0.2); ABSOLUTE EOSINOPHILS # (AUTO) 0.1 10^3/uL (0.0-0.6); ABSOLUTE LYMPHOCYTES (AUTO) 1.6 10^3/uL (0.5-4.7); ABSOLUTE MONOCYTES (AUTO) 0.6 10^3/uL (0.1-1.4); ABSOLUTE NEUT (AUTO) 5.3 10^3/uL (1.7-8.2); BASOPHILS % (AUTO) 0.8 % (0-2); EOSINOPHILS % (AUTO) 1.2 % (0-6); HEMATOCRIT 46.3 % (36.0-47.0); HEMOGLOBIN 15.5 g/dL (12.0-15.5); MEAN CORPUSCULAR HEMOGLOBIN 30.9 pg (27.0-33.4); MEAN CORPUSCULAR HGB CONC 33.5 g/dL (32.0-36.0); MEAN CORPUSCULAR VOLUME 92 fl (80-97); MONOCYTES % (AUTO) 7.9 % (3-13); PLATELET COUNT 286 10^3/uL (150-450); RED BLOOD COUNT 5.01 10^6/uL (3.72-5.28); RED CELL DISTRIBUTION WIDTH 14.9 % (11.5-14.0); SEGMENTED NEUTROPHILS % (AUTO) 69.1 % (42-78); TOTAL CELLS COUNTED % (AUTO) 100 %; WHITE BLOOD COUNT 7.7 10^3/uL (4.0-10.5)
[2020-06-22] MEDS ORDERED: PROMETHAZINE HCL INJ 25 MG/1 ML VIAL IM ONE (00:36)
[2020-06-22] MEDS ORDERED: DIPHENHYDRAMINE HCL 50 MG/ML VIAL IV ONE (00:36)
--- NOTE | 2020-06-22 00:38 | ER Document Report ---
ED General - General Chief Complaint: Leg Pain Stated Complaint: KNEE PAIN Time Seen by Provider: 06/21/20 19:27 Primary Care Provider: ISELA TAM MD [Primary Care Provider] - Follow up as needed Notes: Patient is a 60-year-old female that comes emergency department for chief complaint of vomiting. Patient states that she has been getting sharp pains from her right hip running down her right anterior thigh intermittently, she states that she was told because she needs left knee surgery that she has been compensating and walking with an abnormal gait, this caused her to develop hip pain which has been ongoing, she states she saw orthopedics and they imaged it and told her it was okay. She states she missed her surgery for her left knee this week because of a in the family. Patient states that when she gets sharp pains it frequently causes her to vomit, she states she has been this way since she was a child. She states she vomited 5 times and because she was not stopping she came into the emergency department. She still states she vomited once after being given IV Zofran from triage. Past medical history of chronic back pain, hysterectomy, denies abdominal surgeries otherwise, denies any particular abdominal pain, denies chest pain, denies fever, denies fall or reinjury. TRAVEL OUTSIDE OF THE [place] IN LAST 30 DAYS: No - Related Data Allergies/Adverse Reactions: fentanyl Allergy (Verified 11/16/19 00:05) morphine Allergy (Verified 11/16/19 00:05) sumatriptan [From Imitrex] Allergy (Verified 11/16/19 00:05) sumatriptan succinate [From Imitrex] Allergy (Verified 11/16/19 00:05) Past Medical History - General Information source: Patient - Social History Smoking Status: Never Smoker Chew tobacco use (# tins/day): No Frequency of alcohol use: None Drug Abuse: None Lives with: Family Family History: None, CAD, DM, Malignancy, Other - Past Medical History Cardiac Medical History: 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, Hx Pulmonary Embolism Denies: Hx Atrial Fibrillation, Hx Congestive Heart Failure, Hx Coronary Artery Disease, Hx Heart Attack, Hx Hypercholesterolemia, Hx Hypertension, Hx Peripheral Vascular Disease, Hx Heart Murmur Neurological Medical History: Reports: Hx Migraine Renal/ Medical History: Denies: Hx Peritoneal Dialysis Musculoskeletal Medical History: Reports Hx Muscle Spasm Past Surgical History: Reports: Hx Bowel Surgery - Lap lysis of adhesions, Hx Cholecystectomy, Hx Hysterectomy, Hx Orthopedic Surgery - back 2/left leg, Other - Back surgery - Immunizations Immunizations up to date: Yes Hx Diphtheria, Pertussis, Tetanus Vaccination: No Hx Pneumococcal Vaccination: 12/29/10 Review of Systems - Review of Systems Constitutional: See HPI EENT: No symptoms reported Cardiovascular: No symptoms reported Respiratory: No symptoms reported Gastrointestinal: See HPI Genitourinary: No symptoms reported Female Genitourinary: No symptoms reported Musculoskeletal: See HPI Skin: No symptoms reported Hematologic/Lymphatic: No symptoms reported Neurological/Psychological: No symptoms reported Physical Exam - Vital signs Vitals: Temp Pulse Resp BP Pulse Ox 98.3 F 82 16 133/52 H 96 06/21/20 18:00 06/21/20 18:00 06/21/20 18:00 06/21/20 18:00 06/21/20 18:00 - Notes Notes: GENERAL: Alert, interacts well. Patient appears mildly uncomfortable HEAD: Normocephalic, atraumatic. EYES: Pupils equal, round, and reactive to light. Extraocular movements intact. ENT: Oral mucosa moist, tongue midline. Oropharynx unremarkable. Airway patent. NECK: Full range of motion. Supple. Trachea midline. No lymphadenopathy. LUNGS: Clear to auscultation bilaterally, no wheezes, rales, or rhonchi. No respiratory distress. Non-tender chest wall. HEART: Regular rate and rhythm. No murmur ABDOMEN: Soft, non-tender. Non-distended. EXTREMITIES: There is minimal swelling over the left anterior knee, no overt erythema or abnormal heat, range of motion is painful but intact, normal distal neurovascular exam. There is pain generally over the right proximal hip/thigh extending down to the mid thigh anteriorly. Range of motion intact. Normal distal neurovascular exam. No severe pain or abnormal finding otherwise. BACK: no cervical, thoracic, lumbar midline tenderness. No saddle anesthesia, normal distal neurovascular exam. Moves all extremities in full range of motion. NEUROLOGICAL: Alert and oriented x3. Normal speech. Cranial nerves II through XII grossly intact. Strength 5/5 in all extremities. PSYCH: Normal affect, normal mood. SKIN: Warm, dry, normal turgor. No rashes or lesions noted. Course - Re-evaluation Re-evalutation: Patient is not ill appearing. Vital signs unremarkable. CBC, chemistry, uri nalysis from triage reviewed and generally unremarkable. Patient complains of pain over the left knee but there is no erythema, concerning swelling, neurovascular deficits, or other concerning findings. She also complains of right hip and right thigh pain but she has range of motion and there is no sign of infection. Very low suspicion of osteomyelitis or concerning emergent abnormality. Patient vomited after the Phenergan. She states that she has a pattern that if she develops sharp pain she starts vomiting and if the pain is not treated she cannot stop. Because she vomited with the Phenergan I did provide patient with a dose of pain medication, after this patient stated she felt much improved, she began tolerating p.o. without any difficulty, she states appreciation and states she is ready to go home. She states now she can tolerate her regular pain medication and she states she already has planned follow-up with orthopedics for both her left knee and follow-up for her hip. She declines imaging of the hip. Discussed follow-up and return precautions. Patient states understanding and agreement. Stable and well-appearing at time of discharge. - Vital Signs Vital signs: Temp Pulse Resp BP Pulse Ox 98.0 F 57 L 17 122/67 96 06/22/20 05:20 06/22/20 05:20 06/22/20 05:20 06/22/20 05:20 06/22/20 05:20 - Laboratory Result Diagrams: 06/22/20 00:14 06/22/20 00:14 Laboratory results interpreted by me: 06/22/20 06/22/20 06/22/20 00:14 00:14 01:00 RDW 14.9 H Chloride 108 H Urine Blood SMALL H Ur Leukocyte Esterase SMALL H Discharge - Discharge Clinical Impression: Hip pain Leg pain Qualifiers: Laterality: right Qualified Code(s): M79.604 - Pain in right leg Vomiting Qualifiers: Vomiting type: unspecified Vomiting Intractability: non-intractable Nausea presence: with nausea Qualified Code(s): R11.2 - Nausea with vomiting, unspecified Condition: Stable Disposition: HOME, SELF-CARE Additional Instructions: No concerning findings were noted here tonight. Follow-up with your orthopedics closely for evaluation of your hip pain, follow- up also for your scheduled surgery of your knee. Return if you worsen including developing abdominal pain, chest pain, fever, swelling of the leg, or any other concerning or worsening symptoms. Prescriptions: Promethazine HCl [Phenergan 25 mg Tablet] 25 mg PO Q6H PRN #15 tablet PRN Reason: Referrals: ISELA TAM MD [Primary Care Provider] - Follow up as needed
[2020-06-22 00:49] LABS: ALBUMIN 4.3 g/dL (3.5-5.0); ALKALINE PHOSPHATASE 109 U/L (38-126); ANION GAP 9 (5-19); ASPARTATE AMINO TRANSFERASE 28 U/L (14-36); BILIRUBIN,DIRECT 0.3 mg/dL (0.0-0.4); BILIRUBIN,TOTAL 0.6 mg/dL (0.2-1.3); BLOOD UREA NITROGEN 12 mg/dL (7-20); CALCIUM 9.1 mg/dL (8.4-10.2); CARBON DIOXIDE 23 mmol/L (22-30); CHLORIDE 108 mmol/L (98-107); GLUCOSE 110 mg/dL (75-110); POTASSIUM 3.8 mmol/L (3.6-5.0); TOTAL PROTEIN 7.8 g/dL (6.3-8.2)
[2020-06-22 01:36] LABS: APPEARANCE,URINE CLEAR; BILIRUBIN,URINE NEGATIVE (NEGATIVE); COLOR,URINE YELLOW; GLUCOSE, URINE NEGATIVE (NEGATIVE); KETONES,URINE NEGATIVE (NEGATIVE); LEUKOCYTE ESTERASE,URINE SMALL (NEGATIVE); NITRITE,URINE NEGATIVE (NEGATIVE); PROTEIN,URINE NEGATIVE (NEGATIVE); URINE SPECIFIC GRAVITY 1.015; UROBILINOGEN,URINE NEGATIVE mg/dL (<2.0)
[2020-06-22] MEDS ORDERED: OXYCODONE HCL IR 5 MG TABLET PO ONE (01:57)
[2020-06-22] MEDS ORDERED: HYDROMORPHONE HCL INJ/PF 2 MG/ML AMPULE IV ONE (02:13)
[2020-06-22 05:26] VITALS: BP 122/67
== END 2020-06-22 05:27 | disposition home or self-care (01) ==
LOC: ER 17:49
DX: M25.551 Pain in right hip (principal); M79.651 Pain in right thigh; M25.562 Pain in left knee; R11.2 Nausea with vomiting, unspecified; Z88.6 Allergy status to analgesic agent; Z88.5 Allergy status to narcotic agent; Z86.718 Personal history of other venous thrombosis and embolism
CPT/HCPCS: 99284; 96372; 96361; 96374; 96375; 36415; 83690; 85025; 80053; 81001; 74022; J1200; J1885; J1170; J2550; J2405; J7030